=== PATIENT | female | born 1985 | race Caucasian/White ===

== ENCOUNTER 2020-12-23 09:07 | Outpatient (CLI) | payer OTHER, SELFPAY ==
--- NOTE | 2020-12-23 11:15 | NEURO_ITS ---
Impression: # Complains of left 4th and 5th finger numbness. # Left ulnar neuropathy across the elbow. # Normal needle/EMG exam. # Clinical correlation recommended. Nerve Conduction Studies Anti Sensory Summary Table Stim Site NR Peak (ms) P-T Amp (?V) Site1 Site2 Delta-P (ms) Dist (cm) Gregg (m/s) Left Median Anti Sensory (2-3nd Digit) Wrist 2.5 75.6 Wrist 2-3nd Digit 2.5 14.0 56 Wrist 2.4 67.3 Wrist 2-3nd Digit 2.5 14.0 56 Left Radial Anti Sensory (Base 1st Digit) Wrist 1.6 35.1 Wrist Base 1st Digit 1.6 0.0 Left Ulnar Anti Sensory (5th Digit) Wrist 2.3 76.1 Wrist 5th Digit 2.3 14.0 61 Motor Summary Table Stim Site NR Onset (ms) O-P Amp (mV) Site1 Site2 Delta-0 (ms) Dist (cm) Gregg (m/s) Left Median Motor (Abd Poll Brev) Wrist 2.5 4.4 Elbow Wrist 4.6 28.0 61 Elbow 7.1 2.6 Left Ulnar Motor (Abd Dig Minimi) Wrist 2.3 7.8 A Elbow Wrist 6.1 29.0 48 A Elbow 8.4 4.6 B Elbow Wrist 4.1 23.0 56 B Elbow 6.4 6.3 F Wave Studies NR F-Lat (ms) L-R F-Lat (ms) Left Median (Mrkrs) (Abd Poll Brev) 26.62 Left Ulnar (Mrkrs) (Abd Dig Min) 28.58 EMG Side Muscle Nerve Root Ins Act Fibs Amp Dur Recrt Comment Left 1stDorInt Ulnar C8-T1 Nml Nml Nml Nml Nml Left Ext Indicis Radial (Post Int) C7-8 Nml Nml Nml Nml Nml Left Ext Digitorum Radial (Post Int) C7-8 Nml Nml Nml Nml Nml Left BrachioRad Radial C5-6 Nml Nml Nml Nml Nml Left PronatorTeres Median C6-7 Nml Nml Nml Nml Nml Left Abd Poll Brev Median C8-T1 Nml Nml Nml Nml Nml MTDD
== END 2020-12-23 09:08 | disposition home or self-care (01) ==
PROVIDERS: PCP Nurse Practitioner Adult Health; Visit Provider Nurse Practitioner Adult Health
DX: R20.2 Paresthesia of skin (principal); G56.22 Lesion of ulnar nerve, left upper limb
CPT/HCPCS: 95886; 95909

== ENCOUNTER 2023-05-17 06:23 | Inpatient (IN) | payer BC, SELFPAY ==
[2023-05-17] VITALS (51 sets, daily range): BP systolic 80–147; BP diastolic 38–85; PULSE 67–223; RESP 12–14; TEMP 36.4–37.3; O2SAT 97–100; BMI 43.1
--- NOTE | 2023-05-17 06:40 | PM.IMHP ---
H&P: HPI History of Present Illness Date/Time: 05/17/23 06:40 Chief Complaint: demise at 17 weeks Narrative: 38-year-old 2 para 1 at 17 weeks gestation with demise. She had a huge subchorionic hematoma which appeared to be improving but ultrasound yesterday showed demise which appears very recent she is admitted for induction and delivery risks and benefits reviewed Meds Home Medications and Allergies Allergies Allergy/AdvReac Type Severity Reaction Status Date / Time No Known Allergies Allergy Mild Unverified 08/28/08 20:34 Exam Const: General: cooperative, healthy appearing and comfortable Orientation/consciousness: oriented to person, oriented to place and oriented to time HENMT: Head: normal to inspection Resp: Effort & Inspection: normal respiratory effort Cardio: Rate: regular rate Rhythm: regular rhythm Heart sounds: S1 normal heart sound present and S2 normal heart sound present GI: Inspection: normal to inspection : External Female Exam: normal external appearance Speculum Exam - Vagina: normal appearance of the vagina Speculum Exam - Cervix: normal appearance of the cervix Bimanual exam- vagina & uterus: enlarged Bimanual Exam- Adnexa, other: normal adnexae Assessment and Plan Assessment and plan (1) demise before 20 weeks with retention of fetus: Code(s): O02.1 - Missed Status: Acute Plan medical induction of labor
[2023-05-17] MEDS: miSOPROStol 200 MCG TABLET VAGINAL ×3 (07:29→15:32)
[2023-05-17 08:07] LABS: Basophils Percent Auto 0.3 % (0.2-1.2); Eosinophils Absolute Auto 0.1 K/mm3 (0-0.3); Hematocrit 38.2 % (37.0-47.0); Hemoglobin 12.7 g/dL (12.0-15.0); Immature Granulocyte Absolute 0.06 K/mm3 (0.00-0.031); Immature Granulocyte Percent A 0.6 % (0-0.5); Lymphocytes Absolute Auto 2.26 K/mm3 (0.9-3.2); Lymphocytes Percent Auto 22.2 % (18.3-44.2); Mean Corpuscular HGB Conc 33.2 g/dl (32-36); Mean Corpuscular Hemoglobin 29.3 pg (26-34); Mean Platelet Volume 12.6 fl (7.4-10.4); Monocytes Absolute Auto 0.5 K/mm3 (0.1-0.6); Monocytes Percent Auto 4.8 % (2.6-8.5); Neutrophils Absolute Auto 7.3 K/mm3 (1.3-6.7); Neutrophils Percent Auto 71.1 % (45.5-73.1); Platelet Count Result 198 k/mm3 (150-375); Red Blood Count 4.34 M/mm3 (4.2-5.4); Red Cell Distribution Width 13.2 % (11.5-14.5); White Blood Count 10.2 K/mm3 (4.5-10.0)
--- NOTE | 2023-05-17 08:11 | LDADM ---
This patient, Sandra Faith, was admitted to Labor/Delivery/Recovery 110 on 05/17/23 at 06:23. Plans for labor, pain management and were discussed with patient. Patient/family oriented to hospital policies and general routines including ID bracelet, bed and alarms, visiting hours, pain management, procedures, bathroom and other care routines, personal items, smoking policy, room service/diet and guest tray routines, security routines, and visiting hours. Patient/Family are encouraged to report perceived risks to care and to ask questions if they do not understand what they are told or what they should do. See OBIX for further documentation.
[2023-05-17 08:33] LABS: Free T4 Free Thyroxine 0.69 ng/mL (0.78-2.19)
[2023-05-17 09:42] LABS: Rapid Plasma Reagin Non-Reactive (NonReactive)
[2023-05-17 11:18] LABS: Amphetamine Screen Urine Negative (Negative); Barbiturate Screen Urine Negative (Negative); Benzodiazepines Screen Urine Negative (Negative); Cannabinoid Screen Urine Negative (Negative); Cocaine Screen Urine Negative (Negative); Methadone Screen Urine Negative (Negative); Opiate Screen Urine Negative (Negative); Phencyclidine Screen Urine Negative (Negative)
--- NOTE | 2023-05-17 11:43 | PM.OBPNLAB ---
Pain Control Date/time seen: 05/17/23 11:43 Pain control: tolerating well Comments: comfortable second dose in
--- NOTE | 2023-05-17 16:12 | PM.OBPNLAB ---
Pain Control Date/time seen: 05/17/23 16:12 Pain control: tolerating well Pelvic Exam Dilation (cm): 2 Effacement (%): 50 station: -3 Comments: attempted arom. pain increasing
[2023-05-17] MEDS: fentaNYL CITRATE INJ (*CRX) 100 MCG/2 ML VIAL IV PUSH ×2 (16:18→17:18)
[2023-05-17] MEDS: LACTATED RINGERS 1,000 ML 125 ML IV CONT ×2 (17:12→18:22)
--- NOTE | 2023-05-17 18:08 | WPDANESEPPF ---
Anes - Initial Pre Proc Eval Date/Time: 05/17/23 18:08 Surgeon: Pavel Quevedo MD Pre Op Diagnosis: iufd Patient Data Age: 38 Gender: F Height: 1.7 m Weight: 125 kg Last Vital Signs Temp 37.2 C 05/17/23 17:28 Pulse 82 05/17/23 18:07 BP 126/49 L 05/17/23 18:07 Pulse Ox 100 05/17/23 18:06 O2 Del Method Room Air 05/17/23 08:09 Allergies Allergy/AdvReac Type Severity Reaction Status Date / Time No Known Allergies Allergy Mild Unverified 08/28/08 20:34 Laboratory Tests 05/17/23 05/17/23 05/17/23 06:52 06:53 06:54 WBC 10.2 H K/mm3 (4.5-10.0) RBC 4.34 M/mm3 (4.2-5.4) Hgb 12.7 g/dL (12.0-15.0) Hct 38.2 % (37.0-47.0) MCV 88.0 fl (80-100) MCH 29.3 pg (26-34) MCHC 33.2 g/dl (32-36) RDW 13.2 % (11.5-14.5) Plt Count 198 k/mm3 (150-375) MPV 12.6 H fl (7.4-10.4) Immature Gran % (Auto) 0.6 H % (0-0.5) Neut % (Auto) 71.1 % (45.5-73.1) Lymph % (Auto) 22.2 % (18.3-44.2) [place] % (Auto) 4.8 % (2.6-8.5) Eos % (Auto) 1.0 % (0-4.4) Baso % (Auto) 0.3 % (0.2-1.2) Lymph # (Auto) 2.26 K/mm3 (0.9-3.2) [place] # (Auto) 0.5 K/mm3 (0.1-0.6) Eos # (Auto) 0.1 K/mm3 (0-0.3) Baso # (Auto) 0.0 K/mm3 (0.0-0.1) Abs Immat Gran (auto) 0.06 H K/mm3 (0.00-0.031) Absolute Neuts (auto) 7.3 H K/mm3 (1.3-6.7) Absolute Nucleated RBC 0.000 K/mm3 (0.0-0.012) Nucleated RBC % 0.0 % (0.0-0.2) LA PTT Screen Pending dRVVT Screen Pending dRVVT Additional Test Pending Lupus Anticoag Interp Pending Hemoglobin A1c Pending TSH 1.590 uIU/mL (0.465-4.680) Free T4 0.69 L ng/mL (0.78-2.19) Urine Opiates Screen Negative (Negative) Urine Methadone Screen Negative (Negative) Ur Barbiturates Screen Negative (Negative) Ur Phencyclidine Scrn Negative (Negative) Ur Amphetamine Screen Negative (Negative) U Benzodiazepines Scrn Negative (Negative) Urine Cocaine Screen Negative (Negative) U Cannabinoids Screen Negative (Negative) Beta-2-GPI IgG Ab Pending Beta-2-GPI IgA Ab Beta-2-GPI IgM Ab Phosphatidylserine Ab Phosphatidylserine IgG Phosphatidylserine IgA Phosphatidylserine IgM Anti-Cardiolipin IgG Ab Pending Anti-Cardiolipin IgA Ab Pending Anti-Cardiolipin IgM Ab Pending RPR Non-reactive (NonReactive) CMV IgG Ab CMV IgM Ab HSV I Specific Ab Pending HSV II Specific Ab Pending Parvovirus B19 IgG Intp Pending Parvovirus B19 IgM Intp Pending Rubella IgG Antibody Toxoplasma IgG Ab Pending Toxoplasma IgM Ab Add Miscellaneous Test Blood Type A Positive Antibody Screen Negative 05/17/23 05/17/23 05/17/23 06:54 06:54 06:54 WBC RBC Hgb Hct MCV MCH MCHC RDW Plt Count MPV Immature Gran % (Auto) Neut % (Auto) Lymph % (Auto) [place] % (Auto) Eos % (Auto) Baso % (Auto) Lymph # (Auto) [place] # (Auto) Eos # (Auto) Baso # (Auto) Abs Immat Gran (auto) Absolute Neuts (auto) Absolute Nucleated RBC Nucleated RBC % LA PTT Screen dRVVT Screen dRVVT Additional Test Lupus Anticoag Interp Hemoglob
[2023-05-17] MEDS: OXYTOCIN 30 UNITS/NS 500 ML 30 UNITS/500 ML BAG 999 UNITS IV CONT (18:38)
--- NOTE | 2023-05-17 18:57 | P.PCNOB_ITS ---
OB - Vaginal Delivery Note Procedure Delivery date: 05/17/23 Events: Other (Second trimester demise) Induction method: Per Misoprostol Protocol Delivery monitor: None Route of delivery: Episiotomy description: None Laceration Description: None Quantitative Blood Loss (ml): 100 Anesthesia type: Epidural Disposition: Floor Complications: No immediate complications [place] Baby Date of : 05/17/23 Time of : 19:00 Weeks of gestation at delivery: 17 Infant gender: Ambiguous presentation: vertex Placenta delivery description: Spontaneous Cord Vessel Description: Nuchal Cord (x4) score one minute: 0 score five minutes: 0
--- NOTE | 2023-05-17 19:02 | PM.DS ---
DS: Admitting Diagnosis Discharge Date 05/18/2023 Admitting Diagnosis demise DS: Discharge Diagnosis Discharge Diagnosis (1) demise before 20 weeks with retention of fetus: Code(s): O02.1 - Missed Status: Acute DS: Summary Hospital Course Hospital Course: patient was admitted for induction of labor secondary to demise. The procedure was unremarkable on 05/17/2023. Her hospital course was unremarkable. She remained afebrile. She was up, voiding without difficulty, ambulating, generally doing well. She appeared psychologically stable as well Time Spent with Patient Time attestation: Total time spent providing and/or coordinating discharge services: Exam Const: General: cooperative, healthy appearing and comfortable Orientation/consciousness: oriented to person, oriented to place and oriented to time HENMT: Head: normal to inspection Resp: Effort & Inspection: normal respiratory effort Cardio: Rate: regular rate Rhythm: regular rhythm Heart sounds: S1 normal heart sound present and S2 normal heart sound present GI: Inspection: normal to inspection DS: Data Data Completed and Pending Labs on day of discharge: Labs from last 24 hours 05/17/23 05/17/23 05/17/23 08:42 06:54 06:54 WBC RBC Hgb Hct MCV MCH MCHC RDW Plt Count MPV Immature Gran % (Auto) Neut % (Auto) Lymph % (Auto) [place] % (Auto) Eos % (Auto) Baso % (Auto) Lymph # (Auto) [place] # (Auto) Eos # (Auto) Baso # (Auto) Abs Immat Gran (auto) Absolute Neuts (auto) Absolute Nucleated RBC Nucleated RBC % LA PTT Screen dRVVT Screen dRVVT Additional Test Lupus Anticoag Interp Hemoglobin A1c TSH Free T4 Urine Opiates Screen Urine Methadone Screen Ur Barbiturates Screen Ur Phencyclidine Scrn Ur Amphetamine Screen U Benzodiazepines Scrn Urine Cocaine Screen U Cannabinoids Screen Beta-2-GPI IgG Ab Beta-2-GPI IgA Ab Pending Beta-2-GPI IgM Ab Pending Pending Phosphatidylserine Ab Pending Phosphatidylserine IgG Pending Phosphatidylserine IgA Pending Phosphatidylserine IgM Pending Anti-Cardiolipin IgG Ab Pending Anti-Cardiolipin IgA Ab Pending Anti-Cardiolipin IgM Ab Pending RPR CMV IgG Ab Pending CMV IgM Ab Pending HSV I Specific Ab HSV II Specific Ab Parvovirus B19 IgG Intp Parvovirus B19 IgM Intp Rubella IgG Antibody 59.0 Toxoplasma IgG Ab Toxoplasma IgM Ab Pending Add Miscellaneous Test Pending Blood Type Antibody Screen 05/17/23 05/17/23 05/17/23 06:54 06:54 06:53 WBC 10.2 H RBC 4.34 Hgb 12.7 Hct 38.2 MCV 88.0 MCH 29.3 MCHC 33.2 RDW 13.2 Plt Count 198 MPV 12.6 H Immature Gran % (Auto) 0.6 H Neut % (Auto) 71.1 Lymph % (Auto) 22.2 [place] % (Auto) 4.8 Eos % (Auto) 1.0 Baso % (Auto) 0.3 Lymph # (Auto) 2.26 [place] # (Auto) 0.5 Eos # (Auto) 0.1 Baso # (Auto) 0.0 Abs Immat Gran (auto) 0.06 H Absolute Neuts (auto) 7.3 H Absolute Nucleated RBC 0.000 Nucleated RBC % 0.0 LA PTT Screen Pending dRVVT Screen Pending dRVVT Additional Test Pending Lupus Anticoag Interp Pending Hemoglobin A1c Pending TSH 1.590 Free T4 Urine Opiates Screen Urine Methadone Screen Ur Barbiturates Screen Ur Phencyclidine Scrn Ur Amphetamine Screen U Benzodiazepines Scrn Urine Cocaine Screen U Cannabinoids Screen Beta-2-GPI IgG Ab Pending Pending Beta-2-GPI IgA Ab Pending Beta-2-GPI IgM Ab Phosphatidylserine Ab Phosphatidylserine IgG Phosphatidylserine IgA Phosphatidylserine IgM Anti-Cardiolipin IgG Ab Pending Anti-Cardiolipin IgA Ab Pending Anti-Cardiolipin IgM Ab Pending RPR CMV IgG Ab CMV IgM Ab HSV I Specific Ab Pending HSV II Specific Ab Pending Par
[2023-05-17] MEDS: OXYTOCIN 30 UNITS/NS 500 ML 30 UNITS/500 ML BAG 125 UNITS IV CONT (19:18)
--- NOTE | 2023-05-17 19:31 | PC.NURSE ---
Gift Basket Packer was notified of IUFD delivery.
[2023-05-17] MEDS: IBUPROFEN 600 MG TABLET PO (23:30)
--- NOTE | 2023-05-17 23:37 | PC.NURSE ---
Called Dr. Glenys Quevedo to update on pt, vital signs, bleeding, and cramping. Orders received to discharge pt tonight or in the morning per patient preference.
--- NOTE | 2023-05-18 00:26 | PC.NURSE ---
Pt discharged with instructions to schedule an appointment with Dr. Glenys Quevedo next week.
[2023-05-18 01:23] LABS: Hemoglobin A1C 4.9 % (<5.7)
[2023-05-19 18:02] LABS: Toxoplasma IgM Antibody <8.00 AU/mL (<8.00)
[2023-05-20 13:04] LABS: CMV IgM Antibody <30.00 AU/mL (<30.00)
[2023-05-21 12:10] LABS: Anti Cardio Antibody IgM <2.0 MPL-U/mL (<20.0); Anti Cardiolipin Antibody IgA <2.0 APL-U/mL (<20.0); Anti Cardiolipin Antibody IgG <2.0 GPL-U/mL (<20.0); PS/PT AB IgG <9 U (<=30); PS/PT AB IgM 16 U (<=30)
[2023-05-21 12:11] LABS: Anti Cardio Antibody IgM <2.0 MPL-U/mL (<20.0); Anti Cardiolipin Antibody IgA <2.0 APL-U/mL (<20.0); Anti Cardiolipin Antibody IgG <2.0 GPL-U/mL (<20.0)
[2023-05-22 09:18] LABS: CMV IgG Antibody >10.00 U/mL (<0.60)
[2023-05-22 13:27] LABS: Toxoplasma IgG Antibody <7.20 IU/mL (<7.20)
[2023-05-23 20:02] LABS: Lupus dRVVT Screen 42 sec (<=45); PTT-LA Screen 32 sec (<=40)
== END 2023-05-18 00:26 | disposition home or self-care (01) | DRG 564 ==
PROVIDERS: Admitting Provider Obstetrics & Gynecology; PCP Nurse Practitioner Adult Health; Visit Provider Obstetrics & Gynecology
DX: O02.1 Missed abortion (principal); Z3A.17 17 weeks gestation of pregnancy
CPT/HCPCS: 36415; 80307; 83036; 84439; 84443; 85025; 85613; 85730; 86146; 86147; 86592; 86644; 86645; 86695; 86696; 86747; 86762; 86777; 86850; 86900; 86901; 88307; A9270; J2590; J2795; J3010; J7120

== ENCOUNTER 2023-09-27 01:30 | Emergency (ER) | payer BC, SELFPAY ==
[2023-09-27 01:35] VITALS: BP 155/100; PULSE 78; RESP 15; TEMP 36.4; O2SAT 100
[2023-09-27 02:00] LABS: Basophils Absolute Auto 0.1 K/mm3 (0.0-0.1); Basophils Percent Auto 0.5 % (0.2-1.2); Eosinophils Absolute Auto 0.2 K/mm3 (0-0.3); Eosinophils Percent Auto 1.4 % (0-4.4); Hematocrit 39.4 % (37.0-47.0); Hemoglobin 13.2 g/dL (12.0-15.0); Immature Granulocyte Absolute 0.02 K/mm3 (0.00-0.031); Immature Granulocyte Percent A 0.2 % (0-0.5); Lymphocytes Absolute Auto 3.34 K/mm3 (0.9-3.2); Lymphocytes Percent Auto 29.8 % (18.3-44.2); Mean Corpuscular HGB Conc 33.5 g/dl (32-36); Mean Corpuscular Hemoglobin 28.6 pg (26-34); Mean Corpuscular Volume 85.5 fl (80-100); Mean Platelet Volume 11.6 fl (7.4-10.4); Monocytes Absolute Auto 0.7 K/mm3 (0.1-0.6); Monocytes Percent Auto 6.2 % (2.6-8.5); Neutrophils Absolute Auto 6.9 K/mm3 (1.3-6.7); Neutrophils Percent Auto 61.9 % (45.5-73.1); Platelet Count Result 240 k/mm3 (150-375); Red Blood Count 4.61 M/mm3 (4.2-5.4); Red Cell Distribution Width 13.3 % (11.5-14.5); White Blood Count 11.2 K/mm3 (4.5-10.0)
[2023-09-27 02:10] LABS: INR 0.9; Prothrombin Time 12.6 Seconds (11.1-14.7)
[2023-09-27 02:11] LABS: Partial Thromboplastin Time 26.1 Seconds (22.3-36.8)
[2023-09-27 02:15] LABS: Alanine Aminotransferase 18 U/L (6-35); Alkaline Phosphatase 80 U/L (38-126); Anion Gap 12 mmol/L (4-12); Aspartate Amino Transferase 15 U/L (14-36); Bilirubin,Total 0.1 mg/dL (0.2-1.3); Blood Urea Nitrogen 13 mg/dL (7-17); Carbon Dioxide 18 mmol/L (22-30); Chloride 105 mmol/L (98-107); Estimated CRCL calculation 147 ml/min; Estimated Glomerular Filt Rate > 60; Glucose 117 mg/dL (65-110); Potassium 4.1 mmol/L (3.4-5.0); Sodium 135 mmol/L (137-145)
--- NOTE | 2023-09-27 03:10 | ED.PREGNANCY ---
HPI - General Chief complaint: Vaginal Bleeding Stated complaint: vaginal bleeding, 7 weeks Time Seen by Provider: 09/27/23 02:31 History of Present Illness [facility] Narrative: This is a 38-year-old female at several weeks to gestation. Patient presents to the emergency department for vaginal bleeding. She is concerned she is having a miscarriage. 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 Patient had a regular scheduled ultrasound with her OBGYN this morning which showed a live IUP with good heart rate and stated date of 7 weeks 2 days. There was a small subchorionic hemorrhage that was noted and patient is aware of. After the transvaginal ultrasound patient noted a small cramping sensation and went home and knows that she was passing large clots. Patient had 3-4 large clot passed and culture OBGYN who said that she is likely okay but also referred her to the ER she was concerned. Patient had some mild abdominal cramping prior to the onset of the bleeding but presently has no abdominal pain, nauseous, vomiting, diarrhea, constipation. No fever, chills. She does not require RhoGAM given her blood type. History of miscarriages and hemorrhage during . Related Data Allergies Allergy/AdvReac Type Severity Reaction Status Date / Time No Known Allergies Allergy Mild Unverified 08/28/08 20:34 Review of Systems Review of Systems: As reviewed above in the [facility] Social History Social History Smoking status: Never smoker Substance use: never Do You Feel Safe in your Home?: Yes Lack of Transportation: No Lack of Food: Never True Current Housing: I Do Not Have Housing Concerned About Future Housing: No Difficulty Paying Gas/Electric Bills: No Difficulty Paying for Meds: No Currently Unemployed: No Education: Master's Degree or Higher Difficulty w/ Childcare or Family Care: No Spiritual care concerns: No Exam Narrative: GENERAL: [Well-appearing, well-nourished, and in no acute distress.] HEAD: [Normocephalic, atraumatic.] EYES: [PERRLA and EOMI.] ENT: Nares clear, no rhinorrhea or epistaxis. Mucous membranes moist. NECK: Supple. CHEST: [Clear to auscultation. No respiratory distress.] HEART: [Regular rate and rhythm]. No murmur heard. [Normal peripheral pulses.] ABDOMEN: [Soft, nondistended], [nontender], [No rigidity or guarding] GENITOURINARY: Some pooling of dark blood in the vaginal vault, cervical os was closed, no active bleeding noted. No purulence or drainage or active signs of infection. No material noted. EXTREMITIES: Normal range of motion. [No edema.] SKIN: Warm, dry, no rash. NEURO: [No focal deficits]. Alert and oriented [x3.] PSYCH: [Normal mood and affect.] Course Vital Signs Vital signs: Vital Signs Temperature 36.4 C 09/27/23 01:35 Pulse Rate 78 09/27/23 01:35 Respiratory Rate 15 09/27/23 01:35 Blood Pressure 155/100 H 09/27/23 01:35 Pulse Oximetry 100 09/27/23 01:35 Oxygen Delivery Room Air 09/27/23 01:35 Temperature 36.4 C 09/27/23 01:35 Pulse Rate 78 09/27/23 01:35 Respiratory Rate 15 09/27/23 01:35 Blood Pressure 155/100 H 09/27/23 01:35 Pulse Oximetry 100 09/27/23 01:35 Oxygen Delivery Room Air 09/27/23 01:35 MDM - OB/Uterine Contractions MDM Narrative Medical decision making narrative: This is a 38-year-old female at 7 weeks 2 days gestation by ultrasonography. Patient has a confirmed IUP on outpatient ultrasound that was conducted earlier this morning. She states she started developing blood clot passage after the ultrasound itself. Endorses a mild abdominal cramping sensation as presently resolved. No other somatic symptoms. Has normal reassuring vital signs and is not tachycardic or hypotensive. She is afebrile. Patient is closely followed by her fertility
[2023-09-27 03:50] VITALS: BP 142/87; PULSE 74; RESP 17; O2SAT 99
== END 2023-09-27 03:51 | disposition home or self-care (01) ==
PROVIDERS: Physician Assistant; Emergency Provider Student in an Organized Health Care Education/Training Program
DX: O20.0 Threatened abortion (principal); Z3A.00 Weeks of gestation of pregnancy not specified
CPT/HCPCS: 36415; 80053; 84702; 85025; 85461; 85610; 85730; 86850; 86900; 86901; 99284

== ENCOUNTER 2024-03-06 08:02 | Outpatient (RCR) | payer BC, SELFPAY ==
[2024-03-06 08:30] VITALS: BMI 44.5
[2024-03-06 09:15] VITALS: BMI 44.5
== END 2024-05-20 10:22 | disposition home or self-care (01) ==
LOC: ANHDMC 08:02
PROVIDERS: Visit Provider Obstetrics & Gynecology
DX: Z86.32 Personal history of gestational diabetes (principal); Z71.3 Dietary counseling and surveillance
CPT/HCPCS: 97802

== ENCOUNTER 2024-07-15 14:24 | Outpatient (CLI) | payer BC, SELFPAY ==
[2024-07-15 14:46] VITALS: BP 113/70; PULSE 74
--- OUTSIDE RECORDS SUMMARY | 2024-07-15 14:46 | XMS_ITS | Encounter Summary ---
Author Organization [facility] Address [address] [place] [address] Care Team Providers Care Belt Loop Maker Name Role Phone Unavailable Primary Care Provider Unavailabl e Encounter Details Date Type Department Care Team (Late st Contact Info) Description 09/27/2023 Lab Requisition [facility] [address] [place] [address] Nan More MD Missed Social History Tobacco Use Types Packs/Day Years Used Date Smoking Tobacco: Never Assessed Comments Unknown Sex and Gender Information Value Date Recorded Sex Assigned at Not on file Legal Sex Female 1:49 PM CDT Gender Identity Not on file Sexual Orientation Not on file documented as of this encounter Plan of Treatment Not on file documented as of this encounter Procedures Procedure Name Priority Date/Time Associated Diagnosis Comments CBC W AUTO DIFFERENTIAL STAT 09/27/2023 10:42 AM CDT Missed (HCC) documented in this encounter Results * (ABNORMAL) CBC WITH DIFFERENTIAL (09/27/2023 10:42 AM CDT) WBC 10.2 4.0 - 10.7 x10E9/L 09/27/2023 12:22 PM CDT [facility] RBC Count 4.56 3.90 - 5.20 x10E12/L 09/27/2023 12:22 PM CDT [facility] Hemoglobin 12.9 11.9 - 15.8 g/dL 09/27/2023 12:22 PM CDT [facility] Hematocrit 39.7 34.8 - 46.1 % 09/27/2023 12:22 PM CDT [facility] MCV 87.1 80.0 - 98.0 fL 09/[facility]23 12[facility] MCH 28.3 26.7 - 33.6 pg 09/27/2023 12:22 [facility] MCHC 32.5 31.7 - 36.3 g/dL 09/27/2023 12:22 PM [facility] RDW-CV 13.3 11.3 - 14.8 % 09/27/2023 12:22 PM [facility] Platelet Count 230 150 - 420 x10E9/L 09/27/2023 12:22 PM [facility] MPV 11.9(H) 7.8 - 11.4 fL 09/27/2023 12:22 PM [facility] Neutrophil % 63.6 41.0 - 74.0 % 09/27/2023 12:22 PM [facility] Lymphocyte % 28.5 17.0 - 47.0 % 09/27/2023 12:22 PM [facility] Monocyte % 5.7 3.0 - 11.0 % 09/27/2023 12:22 PM [facility] Eosinophil % 1.4 0.0 - 7.0 % 09/27/2023 12:22 PM [facility] Basophil % 0.4 0.0 - 1.6 % 09/27/2023 12:22 PM [facility] Immature Granulocytes % 0.4 0.0 - 1.0 % 09/27/2023 12:22 PM [facility] Neutrophil Absolute 6.46 1.60 - 7.50 x10E9/L 09/27/2023 12:22 PM [facility] Lymphocyte Absolute 2.90 1.00 - 4.40 x10E9/L 09/27/2023 12:22 PM [facility] Monocyte Absolute 0.58 0.15 - 1.00 x10E9/L 09/27/2023 12:22 PM [facility] Eosinophil Absolute 0.14 0.00 - 0.60 x10E9/L 09/27/2023 12:22 PM [facility] Basophil Absolute 0.04 0.00 - 0.13 x10E9/L 09/27/2023 12:22 PM [facility] Blood BLOOD SPECIMEN / Unknown 09/27/2023 10:42 AM CDT 09/27/2023 12:16 PM CDT us Nan More MD LAB - HEMATOLOGY ORDERABLES Gayla min Result Performing Organization Address City/State/[facility] Co de Phone Number [facility] [address] [place], [place] [id number] documented in this encounter Visit Diagnoses Diagnosis Missed (HCC) Missed documented in this encounter
--- OUTSIDE RECORDS SUMMARY | 2024-07-15 14:46 | XMS_ITS | Encounter Summary ---
Author Organization [facility] Address [address] [place] [address] Care Team Providers Care Web Feeder Name Role Phone Unavailable Primary Care Provider Unavailabl e Encounter Details Date Type Department Care Team (Late st Contact Info) Description 09/28/2023 Lab Requisition [facility] [address] [place] [address] Nan More MD Missed Social History Tobacco [...] Diagnosis Comments CBC W AUTO DIFFERENTIAL STAT 09/28/2023 8:07 AM CDT Missed (HCC) documented in this encounter Results * (ABNORMAL) CBC WITH DIFFERENTIAL (09/28/2023 8:07 AM CDT) WBC 10.1 4.0 - 10.7 x10E9/L 09/28/2023 10:28 AM CDT [facility] RBC Count 4.41 3.90 - 5.20 x10E12/L 09/28/2023 10:28 AM CDT [facility] Hemoglobin 12.4 11.9 - 15.8 g/dL 09/28/2023 10:28 AM CDT [facility] Hematocrit 38.6 34.8 - 46.1 % 09/28/2023 10:28 AM CDT [facility] MCV 87.5 80.0 - 98.0 fL 09/28/2023 10:28 AM CDT [facility] MCH 28.1 26.7 - 33.6 pg 09/28/2023 10:28 AM CDT [facility] MCHC 32.1 31.7 - 36.3 g/dL 09/28/2023 10:28 AM [facility] RDW-CV 13.3 11.3 - 14.8 % 09/28/2023 10:28 AM [facility] Platelet Count 224 150 - 420 x10E9/L 09/28/2023 10:28 AM [facility] MPV 12.3(H) 7.8 - 11.4 fL 09/28/2023 10:28 AM [facility] Neutrophil % 54.2 41.0 - 74.0 % 09/28/2023 10:28 AM [facility] Lymphocyte % 37.2 17.0 - 47.0 % 09/28/2023 10:28 AM [facility] Monocyte % 6.0 3.0 - 11.0 % 09/28/2023 10:28 AM [facility] Eosinophil % 1.5 0.0 - 7.0 % 09/28/2023 10:28 AM [facility] Basophil % 0.6 0.0 - 1.6 % 09/28/2023 10:28 AM [facility] Immature Granulocytes % 0.5 0.0 - 1.0 % 09/28/2023 10:28 AM [facility] Neutrophil Absolute 5.47 1.60 - 7.50 x10E9/L 09/28/2023 10:28 AM [facility] Lymphocyte Absolute 3.75 1.00 - 4.40 x10E9/L 09/28/2023 10:28 AM [facility] Monocyte Absolute 0.60 0.15 - 1.00 x10E9/L 09/28/2023 10:28 AM [facility] Eosinophil Absolute 0.15 0.00 - 0.60 x10E9/L 09/28/2023 10:28 AM [facility] Basophil Absolute 0.06 0.00 - 0.13 x10E9/L 09/28/2023 10:28 AM [facility] Blood BLOOD SPECIMEN / Unknown 09/28/2023 8:07 AM CDT 09/28/2023 10:16 AM CDT us Nan More MD LAB - HEMATOLOGY ORDERABLES Gayla min Result [facility] [address] [place] [address] documented in this encounter Visit Diagnoses Diagnosis Missed (HCC) Missed documented in this encounter
--- OUTSIDE RECORDS SUMMARY | 2024-07-15 14:46 | XMS_ITS | Clinical Summary ---
Author Organization [employer] [facility] Address [address] Attn: Epic Prelude ADT RUDY CHAVIRA [id number] Care Team Providers Care Trade Sales Assistant Name Role Phone Unavailable Primary Care Provider Unavailabl e Medications pravastatin (PRAVACHOL) 20 mg tablet TAKE ONE TABLET BY MOUTH AT BEDTIME 90 Tablet 3 08/12/2021 5:33 PM CDT 2 Active semaglutide, weight loss, (Wegovy) 1.7 mg/0.75 mL Pen Injector Inject 1.7 mg subcutaneously once weekly. 3 mL 2 Active semaglutide (Ozempic) 0.25 mg or 0.5 mg(2 mg/1.5 mL) Pen Injector Inject 0.25 mg subcutaneously once weekly for 4 weeks, then increase to 0.5 mg once weekly. 7.5 mL 3 2 Active nirmatrelvir-r itonavir (Paxlovid, EUA,) 300(150mg x 2)-100 mg oral pack use as directed twice a day x 5 days. 1 Each 2 Active pravastatin (PRAVACHOL) 40 mg tablet Take 1 Tablet (40 mg) by mouth daily. 90 Tablet 1 2 Active rosuvastatin (Crestor) 20 mg tablet Take 1 Tablet (20 mg) by mouth daily at bedtime. 90 Tablet 2 Active Social History Tobacco Use Types Packs/Day Years Used Date Smoking Tobacco: Never Assessed Comments Unknown Sex and Gender Information Value Date Recorded Sex Assigned at Not on file Legal Sex Female 3:27 PM CDT Gender Identity Not on file Sexual Orientation Not on file Plan of Treatment Health Maintenance Due Date Last Done Comments DTAP/TDAP/TD VACCINES (1 - Tdap) 2005 HEPATITIS B VACCINES (1 of 3 - 19+ 3-dose series) 2005 HPV/Cotest (21-29) 05/06/2007 CERVICAL CANCER SCREENING 2016 HPV/Cotest (30-65) 2016 PAP SMEAR 2016 INFLUENZA VACCINE (#1) 2023 HPV VACCINES Aged Out No longer eligi ble based on patient's age to complete this topic
--- OUTSIDE RECORDS SUMMARY | 2024-07-15 14:46 | XMS_ITS | Clinical Summary ---
Author Organization [facility] Address [address] [place] [address] Care Team Providers Care Spaghetti Press Helper Name Role Phone Unavailable Primary Care Provider Unavailabl e Source Comments [facility],non-owned Affiliates and Associated Physician Practices is amultiple site organization consisting of ambulatory clinics and hospital sitesin [place], [place], [place] and [place]. This disclosure is being madepursuant to the Care Everywhere program and may not contain all information available regarding this patient. Last updated 17.[facility] Encounters Date Type Department Care Team Description 05/30/2024 9:09 AM CDT - 05/30/2024 11:59 PM CDT Hospital Encounter [address] [address] Pavel Cheek MD Peterson, Renuka E., MD Discharge Disposition: Home or Self Care 05/30/2024 9:08 AM CDT Hospital Encounter [address] [address] Maria C Sheridan MD Discharge Disposition: Home or Self Care 05/14/[address] [address] Malina Langston Future Appointment 05/09/2024 Orders Only [address] [address] Yohana Juárez RN Prior with congenital cardiac defect, antepartum, unspecified trimester from Last 3 Months Social History Tobacco Use Types Packs/Day Years Used Date Smoking Tobacco: Never Assessed Comments Unknown Sex and Gender Information Value Date Recorded Sex Assigned at Not on file Legal Sex Female 1:49 PM CDT Gender Identity Not on file Sexual Orientation Not on file Plan of Treatment Health Maintenance Due Date Last Done Comments PAP SMEAR 1985 HIV SCREENING 2001 HEPATITIS C SCREENING 04/30/2004 DTAP/TDAP/TD VACCINES (1 - Tdap) 2005 HEPATITIS B VACCINE (1 of 3 - 19+ 3-dose series) 2005 DEPRESSION SCREENING 02/14/2024 ZOSTER VACCINE (1 of 2) 2036 COVID-19 VACCINE Completed 12/22/2023, 02/21/2023, 01/20/2021 INFLUENZA VACCINE Completed 12/22/2023, 02/21/2023, 11/17/2021 HIB VACCINE Aged Out No longer eligi ble based on patient's age to complete this topic HPV VACCINE Aged Out No longer eligi ble based on patient's age to complete this topic MENINGOCOCCAL (Group B) VACCINE SHARED DECISION-MAKING Aged Out No longer eligible based on patient's age to complete this topic MENINGOCOCCAL GROUPS A/C/Y/W VACCINE Aged Out No longer eligible b ased on patient's age to complete this topic PNEUMOCOCCAL VACCINE Aged Out No long er eligible based on patient's age to complete this topic Procedures Procedure Name Priority Date/Time Associated Diagnosis Comments ECHO COMPLETE CG Routine 05/30/2024 9:54 AM CDT Prior with congenital cardiac defect, antepartum, unspecified trimester (HCC) from Last 3 Months Results * ECHO COMPLETE CG (05/30/2024 9:54 AM CDT) MV E pk ronda 33.54 cm/s [facility] CV F UJI PACS MV A pk ronda 53.82 cm/s [facility] CV F UJI PACS Anatomical Region Laterality Modality Ultrasound 05/30/2024 9:26 AM CDT Narrative 05/30/2024 3:52 PM CDT Name: Carri Wheeler Patient Exam Info Gender: Female Patient Status: O/P : 1985 Admit Date: 05/30/2024 Exam Date/Time: 05/30/2024 9:26 AM Site: [facility] Current Location: CARE EStudy Quality: Diagnostic quality Staff Ordering Provider: Pavel Cheek Interpreting Physician: Maria C Sheridan MD Patrol Driver: Toyin Frazier [facility] Study Info Procedure: ECHO COMPLETE CG Indications: O09.299 - Prior with congenital cardiac defect, antepartum, unspecified trimester (HCC) Maternal Gestational Status GA by EDC: 28 wks , 1 days EDC: 08/21/2024 Type: Stewart Age: 39 yrs Lie: Vertex Summary * The echocardiogram was within normal limits. * Small atrial and ventricular septal defects and persistent ductus arteriosus cannot be excluded as findings. Anatomic Relationships Left sided cardiac apex (levocardia). There is normal visceral-cardiac situs, and normal segmental cardiac anatomical relationship. Systemic Veins There is normal systemic venous return. Pulmonary Veins The visualized pulmonary veins drain normally to the left atrium. Right Atrium The right atrial size is normal. Left Atrium The left atrial size is normal. Atrial Septum Patent foramen ovale with open foramen flap. Color flow is right to left. Right Ventricle The right ventricular cavity size is normal. The right ventricular wall thickness is normal. The right ventricular systolic function is normal. RV Outflow Tract The right ventricular outflow tract is normal. Left Ventricle The left ventricular cavity size is normal. The left ventricular wall thickness is normal. The left ventricular systolic function is normal. Ventricular Septum There is no ventricular septal defect with no shunting. LV Outflow Tract The left ventricular outflow tract is normal. Tricuspid Valve The tricuspid valve is structurally normal. The tricuspid inflow pattern is normal. Tricuspid velocity is within the normal range. There is no tricuspid regurgitation. Mitral Valve The mitral valve is structurally normal. The mitral inflow pattern is normal. Mitral velocity is within the normal range. There is no mitral regurgitation. Aorta aortic arch visualized and is without obstruction by 2D, color flow and Doppler. Pulmonary Arteries The main pulmonary artery is normal, with confluent branch pulmonary arteries. Ductus Arteriosus The antegrade flow velocity and pattern in the ductal arch is normal. A normal ductus arteriosus is appreciated. Doppler Flow in the ductus venosus is normal. The umbilical vein flow pattern is normal. The umbilical artery flow pattern is normal. Hydrops Assessment No pericardial effusion. No ascites present. No pleural effusion(s). Rhythm The rhythm is normal. There is 1:1 AV conduction. Pulmonary Valve The pulmonic valve is normal-sized. The transpulmonic velocity is within normal range. There is no pulmonic regurgitation. Aortic Valve The aortic valve is normal-sized. The transaortic velocity is within normal range. There is no aortic regurgitation. Doppler Measurements (Fetus A) Atrioventricular Valves Name Value Normal Z-Score Percentile Atrioventricular Valves Doppler TV E Peak Velocity 0.4 m/s TV A Peak Velocity 0.6 m/s MV E Peak Velocity 0.3 m/s MV A Peak Velocity 0.5 m/s (Fetus A) Semilunar Valves Name Value Normal Z-Score Percentile Semilunar Valves Doppler PV Peak Velocity. 0.7 m/s AV Peak Velocity () 0.9 m/s (Fetus A) Heart Rate Name Value Normal Z-Score Percentile Heart Rate Heart Rate (Doppler) 152 bpm Report Signatures Finalized by Maria C Sheridan MD on 05/30/2024 03:52 PM Procedure Note Maria C Sheridan MD - 05/30/2024 Name: Carri Wheeler Patient Exam Info Gender: Female Patient Status: O/P : 1985 Admit Date: 05/30/2024 Exam Date/Time: 05/30/2024 9:26 AM Site: [facility] Current Location: CARE EStudy Quality: Diagnostic quality Staff Ordering Provider: Pavel Cheek Interpreting Physician: Maria C Sheridan MD Patrol Driver: Toyin Frazier [facility] Study Info Procedure: ECHO COMPLETE CG Indications: O09.299 - Prior with congenital cardiac defect,antepartum, unspecified trimester (HCC) Maternal Gestational Status GA by EDC: 28 wks , 1 days EDC: 08/21/2024 Type: Stewart Age: 39 yrs Lie: Vertex Summary * The echocardiogram was within normal limits. * Small atrial and ventricular septal defects and persistent ductus arteriosus cannot be excluded as findings. Anatomic Relationships Left sided cardiac apex (levocardia). There is normal visceral-cardiac situs, and normal segmental cardiac anatomical relationship. Systemic Veins There is normal systemic venous return. Pulmonary Veins The visualized pulmonary veins drain normally to the left atrium. Right Atrium The right atrial size is normal. Left Atrium The left atrial size is normal. Atrial Septum Patent foramen ovale with open foramen flap. Color flow is right toleft. Right Ventricle The right ventricular cavity size is normal. The right ventricularwall thickness is normal. The right ventricular systolic function is normal. RV Outflow Tract The right ventricular outflow tract is normal. Left Ventricle The left ventricular cavity size is normal. The left ventricular wall thickness is normal. The left ventricular systolic function is normal. Ventricular Septum There is no ventricular septal defect with no shunting. LV Outflow Tract The left ventricular outflow tract is normal. Tricuspid Valve The tricuspid valve is structurally normal. The tricuspid inflow patternis normal. Tricuspid velocity is within the normal range. There is notricuspid regurgitation. Mitral Valve The mitral valve is structurally normal. The mitral inflow pattern is normal. Mitral velocity is within the normal range. There is no mitral regurgitation. Aorta aortic arch visualized and is without obstruction by 2D, colorflow and Doppler. Pulmonary Arteries The main pulmonary artery is normal, with confluent branch pulmonary arteries. Ductus Arteriosus The antegrade flow velocity and pattern in the ductal arch is normal.A normal ductus arteriosus is appreciated. Doppler Flow in the ductus venosus is normal. The umbilical vein flow patternis normal. The umbilical artery flow pattern is normal. Hydrops Assessment No pericardial effusion. No ascites present. No pleural effusion(s). Rhythm The rhythm is normal. There is 1:1 AV conduction. Pulmonary Valve The pulmonic valve is normal-sized. The transpulmonic velocity iswithin normal range. There is no pulmonic regurgitation. Aortic Valve The aortic valve is normal-sized. The transaortic velocity is withinnormal range. There is no aortic regurgitation. Doppler Measurements (Fetus A) Atrioventricular Valves Name Value Normal Z-ScorePercentile Atrioventricular Valves Doppler TV E Peak Velocity 0.4 m/s TV A Peak Velocity 0.6 m/s MV E Peak Velocity 0.3 m/s MV A Peak Velocity 0.5 m/s (Fetus A) Semilunar Valves Name Value Normal Z-ScorePercentile Semilunar Valves Doppler PV Peak Velocity. 0.7 m/s AV Peak Velocity () 0.9 m/s (Fetus A) Heart Rate Name Value Normal Z-ScorePercentile Heart Rate Heart Rate (Doppler) 152 bpm Report Signatures Finalized by Maria C Sheridan MD on 05/30/2024 03:52 PM Pavel Cheek MD ECHO [facility]UPID Final Resul t from Last 3 Months Insurance [facility] * Guarantor: CARRI WHEELER Account Type Relation to Patient Date of Phone Billing Address Personal/Family [address] [place] [address] * Guarantor: CARRI WHEELER Account Type Relation to Patient Date of Phone Billing Address Personal/Family [address] [place] [address] * Guarantor: CARRI WHEELER Account Type Relation to Patient Date of Phone Billing Address Personal/Family [address] [place] [address]
--- OUTSIDE RECORDS SUMMARY | 2024-07-15 14:46 | XMS_ITS | Data Portability ---
Author Organization [facility], Main Office Address [address] [place] [address] Assessment No assessment recorded. Plan of Treatment Reminders Order Date Submit Date Provider Last Modified By Organization Details Last Modified Time Details Appointments None recorded. Lab vitamin B12, serum [address] Outpatient Lab, [address] [place], [address], 09:15:16 HbA1c (hemoglobin A1c), blood [address] Outpatient Lab, [address] [place], [address], 4 09:15:15 lipid panel, serum [address] Outpatient Lab, [address] [place], [address], 4 09:15:15 CMP, serum or plasma [address] Outpatient Lab, [address] [place], [address], 4 09:15:15 vitamin D, 25-hydroxy, total, serum [address] Outpatient Lab, [address] [place], [address], 4 09:15:16 CBC w/ auto diff 2023 024 [facility] - Outpatient Lab, [address] [place], [address], 4 09:15:16 TSH, serum, reflex free T4 2023 024 [facility] Outpatient Lab, [address] [place], [address], 4 12:32:52 PPD (purified protein derivative) , skin test 2022 023 [facility] [address], [place], [address], 3 12:52:17 Referral None recorded. Procedures None recorded. Surgeries None recorded. Imaging None recorded. Medication Orders Tubersol 5 tub. unit/0.1 mL intradermal injection solution 2022 023 Not available 4 08:30:27 Patient TargetsNo targets recorded. Patient InstructionsNo instructions recorded. Reason for Referral None Reported. Results Created Date Observation Date Name Description Value Unit Range Abnormal Flag Note LastModifiedBy Organization Detail LastModifiedTime 10/23/1910/26/2020 TESTO STERO NE, FREE (DIAL YSIS) AND TOTAL ,MS testosterone , total, MS 29 NG/dL 2-45 For addit ional infor tapan gill e refer to https ://ed ucati on.qu shea [employer]. com/f aq/FA Q165 (This link is being provi ded for infor mateduardo nal/e ducat ional purpo ses only. ) (Note ) This test was devel oped and its therese tical perfo rmanc e fortunato cteri stics have been deter mined by [employer]. It has not been clear ed or appro kvng by the FDA. This assay has been valid ated pursu ant to the CLIA regul ation s and is used for clini madeline purpo ses. Not Available [facility] [address], [place], [address], 10/26/2020 12:46:07 10/23/1910/26/2020 TESTO STERO NE, FREE (DIAL YSIS) AND TOTAL ,MS testosterone , free 4.3 pg/mL 0.1-6. 4 (Note ) This test was devel oped and its therese tical perfo rmanc e fortunato cteri stics have been deter mined by [employer]. It has not been clear ed or appro kvng by the FDA. This assay has been valid ated pursu ant to the CLIA regul ation s and is used for clini madeline purpo ses. MD[facility] med fusio n [address] [facility] [address] [place] [address] [phone] Ned coronel MD Not Available [facility] [address] [place], [address], 10/26/2020 12:46:07 10/23/1910/26/2020 HEMOG LOBIN A1C hemoglobin A1C 5.2 %_of_ total _HGB <5.7 normal Not Available [facility] [address] [place], [address], 10/26/2020 12:46:06 10/23/1910/26/2020 VITAM IN D,25- OH,TO KHAI,I A vitamin D,25-oh,tota l,ia 35 NG/mL 30-100 normal Vitam in D Statu s 25-OH Vitam in D: Defic iency : <20 ng/mL Insuf ficie ncy: 20 - 29 ng/mL Optim al: > or = 30 ng/mL For 25-OH Vitam in D testi ng on patie nts on D2-downs pplem entat ion and patie nts for whom quant itati on of D2 and D3 fract ions is requi red, the [facility] Assur eD(TM ) 25-OH VIT D, (D2,D 3), LC/MS /MS is recom chelsey d: order code 05638 (katia ents >2yrs ). See Note 1 Note 1 For addit ional infor matio n, pleas e refer to http: //[facility] [employer].c om/fa q/FAQ 199 (This link is being provi ded for infor janes mackay/ tami albrechto ses only. ) Not Available [facility] [place] [address] [place], [address], 10/26/2020 12:46:05 10/23/1910/26/2020 T3, FREE T3, free 3.5 pg/mL 2.3-4. 2 normal Not Available [facility] [address] [address] [place], [address], 10/26/2020 12:46:05 10/23/1910/26/2020 VITAM IN B12/F OLATE , SERUM PANEL vitamin B12 382 pg/mL 200-11 00 normal Pleas e Note: Altho ugh the refer ence range for vitam in B12 is 200-1 100 pg/mL , it has been repor maryanne that betwe en 5 and 10% of patie nts with value s betwe en 200 and 400 pg/mL may exper ience neuro psych iatri c and hemat ologi c abnor malit ies due to occul t B12 defic iency ; less than 1% of patie nts with value s above 400 pg/mL will have sympt oms. Not Available [facility] [place] [address] [address] [place], [address], 10/26/2020 12:46:04 10/23/1910/26/2020 VITAM IN B12/F OLATE , SERUM PANEL folate, serum >24.0 NG/mL normal Refer ence Range Low: <3.4 Borde rline : 3.4-5 .4 Kristen l: >5.4 Not Available [facility] [address] [address] [place], [address], 10/26/2020 12:46:04 10/23/1910/26/2020 TSH TSH 3.35 mIU/L normal Refer ence Range > or = 20 Years 0.40- 4.50 Pregn myron Range s First trime ster 0.26- 2.66 Secon d trime ster 0.55- 2.73 Third trime ster 0.43- 2.91 Not Available [facility] [place] [address] [place], [address], 10/26/2020 12:46:03 10/23/19 21 10/26/2020 T4, FREE T4, free 1.0 NG/dL 0.8-1. 8 normal Not Available [facility] [address], [address], 10/26/2020 12:46:02 10/23/1910/26/2020 T3, TOTAL T3, total 139 NG/dL 76-181 normal Not Available [address], [address], 10/26/2020 12:46:01 10/23/1910/26/2020 PROGE STERO NE progesterone 0.5 NG/mL normal Refer ence Range s Femal e Folli cular Phase < 1.0 Lutea l Phase 2.6-2 1.5 Post menop ausal < 0.5 Pregn myron 1st Trime ster 4.1-3 4.0 2nd Trime ster 24.0- 76.0 3rd Trime ster 52.0- 302.0 Not Available [address], [address], 10/26/2020 12:46:00 10/23/1910/26/2020 INSUL IN insulin 4.0 uIU/m L normal Refer ence Range < or = 19.6 Risk: Optim al < or = 19.6 Moder ate NA High >19.6 Adult cardi ovasc ular event risk categ ory cut point s (opti mal, moder ate, high) are based on [facility] popul ation data from 02/01 11. This insul in assay shows stron g cross -reac tivit y for some insul in analo gs (lisp ro, aspar t, and glarg ine) and much lower cross -reac tivit y with other s (dete christine, gluli sine) . Not Available [address], [address], 10/26/2020 12:45:59 10/23/1910/26/2020 CORNELL TIN ferritin 102 NG/mL 16-154 normal Not Available [address], [address], 10/26/2020 12:45:59 10/23/1910/26/2020 DHEA SULFA TE DHEA sulfate 235 mcg/d L 23-266 normal Not Available [address], [address], 10/26/2020 12:45:58 10/23/1910/26/2020 THYRO ID PEROX IDASE ANTIB ODIES thyroid peroxidase antibodies 1 IU/mL <9 normal Not Available [facility] [address], [address], 10/26/2020 12:45:57 10/23/1910/26/2020 CBC (INCL UDES DIFF/ PLT) red blood cell count 4.64 júnior on/uL 3.80-5 .10 normal Not Available [address], [address], 10/26/2020 12:45:56 10/23/1910/26/2020 CBC (INCL UDES DIFF/ PLT) hemoglobin 13.5 g/dL 11.7-1 5.5 normal Not Available [facility] [address], [address], 10/26/2020 12:45:56 10/23/1910/26/2020 CBC (INCL UDES DIFF/ PLT) hematocrit 40.4 % 35.0-4 5.0 normal Not Available [facility] [address], [address], 10/26/2020 12:45:56 10/23/1910/26/2020 CBC (INCL UDES DIFF/ PLT) MCV 87.1 fL 80.0-1 00.0 normal Not Available [address], [address], 10/26/2020 12:45:56 10/23/1910/26/2020 CBC (INCL UDES DIFF/ PLT) MCH 29.1 pg 27.0-3 3.0 normal Not Available [address], [address], 10/26/2020 12:45:56 10/23/1910/26/2020 CBC (INCL UDES DIFF/ PLT) MCHC 33.4 g/dL 32.0-3 6.0 normal Not Available [address], [address], 10/26/2020 12:45:56 10/23/1910/26/2020 CBC (INCL UDES DIFF/ PLT) RDW 12.6 % 11.0-1 5.0 normal Not Available [address], [address], 10/26/2020 12:45:56 10/23/1910/26/2020 CBC (INCL UDES DIFF/ PLT) platelet count 208 thous and/u L 140-40 0 normal Not Available [address], [address], 10/26/2020 12:45:56 10/23/1910/26/2020 CBC (INCL UDES DIFF/ PLT) MPV 11.8 fL 7.5-12 .5 normal Not Available [address], [address], 10/26/2020 12:45:56 10/23/1910/26/2020 CBC (INCL UDES DIFF/ PLT) absolute neutrophils 4609 cells /uL 1500-7 800 normal Not Available [address], [address], 10/26/2020 12:45:56 10/23/1910/26/2020 CBC (INCL UDES DIFF/ PLT) absolute lymphocytes 2762 cells /uL 850-39 00 normal Not Available [address], [address], 10/26/2020 12:45:56 10/23/1910/26/2020 CBC (INCL UDES DIFF/ PLT) absolute monocytes 551 cells /uL 200-95 0 normal Not Available [address], [address], 10/26/2020 12:45:56 10/23/1910/26/2020 CBC (INCL UDES DIFF/ PLT) absolute eosinophils 122 cells /uL 15-500 normal Not Available [address], [address], 10/26/2020 12:45:56 10/23/1910/26/2020 CBC (INCL UDES DIFF/ PLT) absolute basophils 57 cells /uL 0-200 normal Not Available [address], [address], 10/26/2020 12:45:56 10/23/1910/26/2020 CBC (INCL UDES DIFF/ PLT) neutrophils 56.9 % normal Not Available [address], [address], 10/26/2020 12:45:56 10/23/1910/26/2020 CBC (INCL UDES DIFF/ PLT) lymphocytes 34.1 % normal Not Available [address], [address], 10/26/2020 12:45:56 10/23/1910/26/2020 CBC (INCL UDES DIFF/ PLT) monocytes 6.8 % normal Not Available [address], [address], 10/26/2020 12:45:56 10/23/1910/26/2020 CBC (INCL UDES DIFF/ PLT) eosinophils 1.5 % normal Not Available [address], [address], 10/26/2020 12:45:56 10/23/1910/26/2020 CBC (INCL UDES DIFF/ PLT) basophils 0.7 % normal Not Available [address], [address], 10/26/2020 12:45:56 10/23/1910/26/2020 CBC (INCL UDES DIFF/ PLT) white blood cell count 8.1 thous and/u L 3.8-10 .8 normal Not Available [address], [address], 10/26/2020 12:45:56 10/23/1910/26/2020 COMPR EHENS MACKENZIE METAB OLIC PANEL glucose 99 mg/dL 65-99 normal Fasti ng refer ence inter broderick Not Available [address], [address], 10/26/2020 12:45:55 10/23/1910/26/2020 COMPR EHENS MACKENZIE METAB OLIC PANEL urea nitrogen (BUN) 12 mg/dL 7-25 normal Not Available [address], [address], 10/26/2020 12:45:55 10/23/1910/26/2020 COMPR EHENS MACKENZIE METAB OLIC PANEL creatinine 0.76 mg/dL 0.50-1 .10 normal Not Available [address], [address], 10/26/2020 12:45:55 10/23/19 21 10/26/2020 COMPR EHENS MACKENZIE METAB OLIC PANEL eGFR non-afr. kosovan 102 mL/mi n/1.7 3m2 > or = 60 normal Not Available [address], [address], 10/26/2020 12:45:55 10/23/19 21 10/26/2020 COMPR EHENS MACKENZIE METAB OLIC PANEL eGFR 119 mL/mi n/1.7 3m2 > or = 60 normal Not Available [address], [address], 10/26/2020 12:45:55 10/23/19 21 10/26/2020 COMPR EHENS MACKENZIE METAB OLIC PANEL BUN/creatini ne ratio not applic able (calc ) 6-22 Not Available [address], [address], 10/26/2020 12:45:55 10/23/19 21 10/26/2020 COMPR EHENS MACKENZIE METAB OLIC PANEL sodium 135 mmol/ L 135-14 6 normal Not Available [address], [address], 10/26/2020 12:45:55 10/23/1910/26/2020 COMPR EHENS MACKENZIE METAB OLIC PANEL potassium 4.2 mmol/ L 3.5-5. 3 normal Not Available [address], [address], 10/26/2020 12:45:55 10/23/1910/26/2020 COMPR EHENS MACKENZIE METAB OLIC PANEL chloride 103 mmol/ L 98-110 normal Not Available [address], [address], 10/26/2020 12:45:55 10/23/1910/26/2020 COMPR EHENS MACKENZIE METAB OLIC PANEL carbon dioxide 26 mmol/ L 20-32 normal Not Available [address], [address], 10/26/2020 12:45:55 10/23/19 21 10/26/2020 COMPR EHENS MACKENZIE METAB OLIC PANEL calcium 9.0 mg/dL 8.6-10 .2 normal Not Available [address], [address], 10/26/2020 12:45:55 10/23/1910/26/2020 COMPR EHENS MACKENZIE METAB OLIC PANEL protein, total 6.9 g/dL 6.1-8. 1 normal Not Available [address], [address], 10/26/2020 12:45:55 10/23/1910/26/2020 COMPR EHENS MACKENZIE METAB OLIC PANEL albumin 4.1 g/dL 3.6-5. 1 normal Not Available [address], [address], 10/26/2020 12:45:55 10/23/1910/26/2020 COMPR EHENS MACKENZIE METAB OLIC PANEL globulin 2.8 g/dL_ (calc ) 1.9-3. 7 normal Not Available [address], [address], 10/26/2020 12:45:55 10/23/1910/26/2020 COMPR EHENS MACKENZIE METAB OLIC PANEL albumin/glob ulin ratio 1.5 (calc ) 1.0-2. 5 normal Not Available [address], [address], 10/26/2020 12:45:55 10/23/19 21 10/26/2020 COMPR EHENS MACKENZIE METAB OLIC PANEL bilirubin, total 0.4 mg/dL 0.2-1. 2 normal Not Available [address], [address], 10/26/2020 12:45:55 10/23/1910/26/2020 COMPR EHENS MACKENZIE METAB OLIC PANEL alkaline phosphatase 76 U/L 31-125 normal Not Available [address], [address], 10/26/2020 12:45:55 10/23/1910/26/2020 COMPR EHENS MACKENZIE METAB OLIC PANEL AST 17 U/L 10-30 normal Not Available [address], [address], 10/26/2020 12:45:55 10/23/1910/26/2020 COMPR EHENS MACKENZIE METAB OLIC PANEL ALT 14 U/L 6-29 normal Not Available [address], [address], 10/26/2020 12:45:55 10/23/1910/26/2020 IRON AND TOTAL IRON FAZAL NG CAPAC ITY iron, total 69 mcg/d L 40-190 normal Not Available [address], [address], 10/26/2020 12:45:55 10/23/1910/26/2020 IRON AND TOTAL IRON FAZAL NG CAPAC ITY iron binding capacity 320 mcg/d L_(ca lc) 250-45 0 normal Not Available [address], [address], 10/26/2020 12:45:55 10/23/1910/26/2020 IRON AND TOTAL IRON FAZAL NG CAPAC ITY % saturation 22 %_(ca lc) 16-45 normal Not Available [address], [address], 10/26/2020 12:45:55 10/23/1910/26/2020 MAGNE SIUM magnesium 2.0 mg/dL 1.5-2. 5 normal Not Available [place] [address] [place], [address], 10/26/2020 12:45:53 10/23/1910/26/2020 LIPID PANEL , STAND MALIA cholesterol, total 238 mg/dL <200 high Not Available [facility] [address] [place], [address], 10/26/2020 12:45:52 10/23/1910/26/2020 LIPID PANEL , STAND MALIA HDL cholesterol 32 mg/dL > or = 50 low Not Available [facility] [address], [address], 10/26/2020 12:45:52 10/23/1910/26/2020 LIPID PANEL , STAND MALIA triglyceride s 249 mg/dL <150 high If a non-f astin g speci men was colle cted, consi viktor repea t trigl yceri de testi ng on a fasti ng speci men if clini tair indic ated. Raphael keating et al. J. of Clin. Lipid ol. 2015; 9:129 -169. Not Available [address], [address], 10/26/2020 12:45:52 10/23/1910/26/2020 LIPID PANEL , STAND MALIA LDL-choleste rol 165 mg/dL _(madeline c) high Refer ence range : <100 Jcainta able range <100 mg/dL for prima ry preve ntion ; <70 mg/dL for patie nts with CHD or diabe tic patie nts with > or = 2 CHD risk facto rs. LDL-C is now calcu lated using the Deb n-Hop kins calcu latio n, which is a valid ated novel metho d provi ding trudy r accur acy than the Fried dominic equat ion in the estim ation of LDL-C . Deb wall SS et al. LETTY. 2013; 310(1 9): 2061- 2067 (http ://ed ucati on.Brigette riveraTeam [employer]. com/f aq/FA Q164) Not Available [address], [address], 10/26/2020 12:45:52 10/23/19 21 10/26/2020 LIPID PANEL , STAND MALIA chol/HDLC ratio 7.4 (calc ) <5.0 high Not Available [place] [address] [place], [address], 10/26/2020 12:45:52 10/23/1910/26/2020 LIPID PANEL , STAND MALIA non HDL cholesterol 206 mg/dL _(madeline c) <130 high For patie nts with diabe faith plus 1 major ASCVD risk facto r, treat ing to a non-H DL-C goal of <100 mg/dL (LDL- C of <70 mg/dL ) is consi dered a zay mejia c optio n. Not Available [place] [address] [place], [address], 10/26/2020 12:45:52 12/12/1912/12/2020 HEPAT IC FUNCT ION PANEL protein, total 6.7 g/dL 6.1-8. 1 normal Not Available [address], [address], 12/12/2020 06:27:51 12/12/1912/12/2020 HEPAT IC FUNCT ION PANEL albumin 4.3 g/dL 3.6-5. 1 normal Not Available [facility] [address], [address], 12/12/2020 06:27:51 12/12/1912/12/2020 HEPAT IC FUNCT ION PANEL globulin 2.4 g/dL_ (calc ) 1.9-3. 7 normal Not Available [address], [address], 12/12/2020 06:27:51 12/12/19 21 12/12/2020 HEPAT IC FUNCT ION PANEL albumin/glob ulin ratio 1.8 (calc ) 1.0-2. 5 normal Not Available [address], [address], 12/12/2020 06:27:51 12/12/1912/12/2020 HEPAT IC FUNCT ION PANEL bilirubin, total 0.4 mg/dL 0.2-1. 2 normal Not Available [address], [address], 12/12/2020 06:27:51 12/12/19 21 12/12/2020 HEPAT IC FUNCT ION PANEL bilirubin, direct 0.1 mg/dL < or = 0.2 normal Not Available [address], [address], 12/12/2020 06:27:51 12/12/19 21 12/12/2020 HEPAT IC FUNCT ION PANEL bilirubin, indirect 0.3 mg/dL _(madeline c) 0.2-1. 2 normal Not Available [address], [address], 12/12/2020 06:27:51 12/12/19 21 12/12/2020 HEPAT IC FUNCT ION PANEL alkaline phosphatase 95 U/L 31-125 normal Not Available [place] [address] [place], [address], 12/12/2020 06:27:51 12/12/19 21 12/12/2020 HEPAT IC FUNCT ION PANEL AST 13 U/L 10-30 normal Not Available [address], [address], 12/12/2020 06:27:51 12/12/19 21 12/12/2020 HEPAT IC FUNCT ION PANEL ALT 14 U/L 6-29 normal Not Available [facility] [address] [place], [address], 12/12/2020 06:27:51 12/12/1912/12/2020 LIPID PANEL , STAND MALIA cholesterol, total 180 mg/dL <200 normal Not Available [facility] [address] [place], [address], 12/12/2020 06:27:50 12/12/1912/12/2020 LIPID PANEL , STAND MALIA HDL cholesterol 31 mg/dL > or = 50 low Not Available [facility] [place] [address] [place], [address], 12/12/2020 06:27:50 12/12/1912/12/2020 LIPID PANEL , STAND MALIA triglyceride s 186 mg/dL <150 high Not Available [facility] [place] [address] [place], [address], 12/12/2020 06:27:50 12/12/1912/12/2020 LIPID PANEL , STAND MALIA LDL-choleste rol 119 mg/dL _(madeline c) high Refer ence range : <100 Jacinta able range <100 mg/dL for prima ry preve ntion ; <70 mg/dL for patie nts with CHD or diabe tic patie nts with > or = 2 CHD risk facto rs. LDL-C is now calcu lated using the Deb n-Hop kins izabellau darshan n, which is a valid ated novel metho d evangelinai prakash carvalho accur acy than the Fried dominic equat ion in the estim ation of LDL-C . Deb wall SS et al. LETTY. 2013; 310(1 9): 2061- 2068 (http ://ed ucati on.Qu Shea white t[employer]. com/f aq/FA Q164) Not Available [facility] [address] [place], [address], 12/12/2020 06:27:50 12/12/1912/12/2020 LIPID PANEL , STAND MALIA chol/HDLC ratio 5.8 (calc ) <5.0 high Not Available [facility] [address], [address], 12/12/2020 06:27:50 12/12/19 21 12/12/2020 LIPID PANEL , STAND MALIA non HDL cholesterol 149 mg/dL _(madeline c) <130 high For patie nts with diabe faith plus 1 major ASCVD risk facto r, treat ing to a non-H DL-C goal of <100 mg/dL (LDL- C of <70 mg/dL ) is xenia gutierrez optio n. Not Available [facility] [place] [address] [place], [address], 12/12/2020 06:27:50 11/18/19 22 11/21/2021 VITAM IN B12/F OLATE , SERUM PANEL vitamin B12 556 pg/mL 200-11 00 normal Not Available [facility] [place] [address] [place], [address], 11/21/2021 18:19:39 11/18/1911/21/2021 VITAM IN B12/F OLATE , SERUM PANEL folate, serum 16.5 NG/mL normal Refer ence Range Low: <3.4 Borde rline : 3.4-5 .4 Kristen l: >5.4 Not Available [facility] [address], [address], 11/21/2021 18:19:39 11/18/19 22 11/21/2021 INSUL IN insulin 2.7 uIU/m L normal Refer ence Range < or = 19.6 Risk: Optim al < or = 19.6 Moder ate NA High >19.6 Adult cardi ovasc ular event risk categ ory cut point s (opti mal, moder ate, high) are based on [facility] popul ation data from 02/01 11. This insul in assay shows booker contreras cross -refreda tivit y for some insul in analo gs (lisp ro, aspar t, and glarg ine) and much lower cross -reac tivit y with other s (dete christine, gluli sine) . Not Available [address], [address], 11/21/2021 18:19:38 11/18/19 22 11/21/2021 HEPAT IC FUNCT ION PANEL protein, total 6.8 g/dL 6.1-8. 1 normal Not Available [address], [address], 11/21/2021 18:19:37 11/18/19 22 11/21/2021 HEPAT IC FUNCT ION PANEL albumin 4.0 g/dL 3.6-5. 1 normal Not Available [address], [address], 11/21/2021 18:19:37 11/18/19 22 11/21/2021 HEPAT IC FUNCT ION PANEL globulin 2.8 g/dL_ (calc ) 1.9-3. 7 normal Not Available [address], [address], 11/21/2021 18:19:37 11/18/19 22 11/21/2021 HEPAT IC FUNCT ION PANEL albumin/glob ulin ratio 1.4 (calc ) 1.0-2. 5 normal Not Available [address], [address], 11/21/2021 18:19:37 11/18/19 22 11/21/2021 HEPAT IC FUNCT ION PANEL bilirubin, total 0.5 mg/dL 0.2-1. 2 normal Not Available [address], [address], 11/21/2021 18:19:37 11/18/19 22 11/21/2021 HEPAT IC FUNCT ION PANEL bilirubin, direct 0.1 mg/dL < or = 0.2 normal Not Available [address], [address], 11/21/2021 18:19:37 11/18/19 22 11/21/2021 HEPAT IC FUNCT ION PANEL bilirubin, indirect 0.4 mg/dL _(madeline c) 0.2-1. 2 normal Not Available [address], [address], 11/21/2021 18:19:37 11/18/19 22 11/21/2021 HEPAT IC FUNCT ION PANEL alkaline phosphatase 77 U/L 31-125 normal Not Available [address], [address], 11/21/2021 18:19:37 11/18/19 22 11/21/2021 HEPAT IC FUNCT ION PANEL AST 15 U/L 10-30 normal Not Available [address], [address], 11/21/2021 18:19:37 11/18/19 22 11/21/2021 HEPAT IC FUNCT ION PANEL ALT 15 U/L 6-29 normal Not Available [address], [address], 11/21/2021 18:19:37 11/18/19 22 11/21/2021 BASIC METAB OLIC PANEL glucose 81 mg/dL 65-99 normal Fasti ng refer ence inter broderick Not Available [address], [address], 11/21/2021 18:19:37 11/18/19 22 11/21/2021 BASIC METAB OLIC PANEL urea nitrogen (BUN) 10 mg/dL 7-25 normal Not Available [address], [address], 11/21/2021 18:19:37 11/18/19 22 11/21/2021 BASIC METAB OLIC PANEL creatinine 0.75 mg/dL 0.50-0 .97 normal Not Available [address], [address], 11/21/2021 18:19:37 11/18/19 22 11/21/2021 BASIC METAB OLIC PANEL eGFR 106 mL/mi n/1.7 3m2 > or = 60 normal The eGFR is based on the CKD-E PI 2020 equat ion. To calcu late the new eGFR from a previ ous Creat inine or Cysta tin C resul t, go to https ://jyoti w.margy gonzalez.o leidy/jazmyn zarate s/ kdoqi /gfr% 5Fcal culat or Not Available [place] [address] [place], [address], 11/21/2021 18:19:37 11/18/1911/21/2021 BASIC METAB OLIC PANEL BUN/creatini ne ratio not applic able (calc ) 6-22 Not Available [place] [address] [place], [address], 11/21/2021 18:19:37 11/18/19 22 11/21/2021 BASIC METAB OLIC PANEL sodium 137 mmol/ L 135-14 6 normal Not Available [address], [address], 11/21/2021 18:19:37 11/18/19 22 11/21/2021 BASIC METAB OLIC PANEL potassium 4.5 mmol/ L 3.5-5. 3 normal Not Available [address], [address], 11/21/2021 18:19:37 11/18/19 22 11/21/2021 BASIC METAB OLIC PANEL chloride 104 mmol/ L 98-110 normal Not Available [address], [address], 11/21/2021 18:19:37 11/18/19 11/21/2021 BASIC METAB OLIC PANEL carbon dioxide 28 mmol/ L 20-32 normal Not Available [address], [address], 11/21/2021 18:19:37 11/18/19 22 11/21/2021 BASIC METAB OLIC PANEL calcium 8.9 mg/dL 8.6-10 .2 normal Not Available [address], [address], 11/21/2021 18:19:37 11/18/19 22 11/21/2021 CARDI O IQ(R) LIPID PANEL cholesterol, total 181 mg/dL <200 Not Available [address], [address], 11/21/2021 18:19:36 11/18/19 22 11/21/2021 CARDI O IQ(R) LIPID PANEL HDL cholesterol 34 mg/dL >49 low Not Available [address], [address], 11/21/2021 18:19:36 11/18/19 22 11/21/2021 CARDI O IQ(R) LIPID PANEL triglyceride s 178 mg/dL <150 high Not Available [address], [address], 11/21/2021 18:19:36 11/18/19 22 11/21/2021 CARDI O IQ(R) LIPID PANEL LDL-choleste rol 117 mg/dL _(madeline c) <100 high Jacinta able range <100 mg/dL for prima ry preve ntion ; <70 mg/dL for patie nts with CHD or diabe tic patie nts with >= 2 CHD risk facto rs. LDL-C is now calcu lated using the Deb n-Hop kins calcu darshan n, which is a valid ated novel metho zeina yates r accur acy than the Fried dominic equat ion in the estim ation of LDL-C . Deb GALLAGHER et al. LETTY. 2013; 310(1 9): 2060- 2067 (http ://ed ucati on.[employer]. com/f aq/FA Q164) LDL-C is now calcu lated using the Deb n-Hop kins calcu darshan n, which is a valid ated novel metho d provi ding trudy r accur acy than the Fried dominic equat ion in the estim ation of LDL-C . Deb GALLAGHER et al. LETTY. 2013; 310(1 9): 2060- 2067 (http ://ed ati on.Qu [employer]. com/f aq/FA Q164) Not Available Inf[facility] [address], [address], 11/21/2021 18:19:36 11/18/19 22 11/21/2021 CARDI O IQ(R) LIPID PANEL chol/HDLC ratio 5.3 calc <3.6 high Not Available [facility] [address], [address], 11/21/2021 18:19:36 11/18/19 22 11/21/2021 CARDI O IQ(R) LIPID PANEL non HDL cholesterol 147 mg/dL _(madeline c) <130 high For patie nts with diabe faith plus 1 major ASCVD risk facto r, treat ing to a non-H DL-C goal of <100 mg/dL (LDL- C of <70 mg/dL ) is consi dered a thera peuti c optio n. For patie nts with diabe faith plus 1 major ASCVD risk facto r, treat ing to a non-H DL-C goal of <100 mg/dL (LDL- C of <70 mg/dL ) is consi dered a thera peuti c optio n. Not Available Infogram [facility] [address] [place], [address], 11/21/2021 18:19:36 11/23/19 22 11/23/2021 GLUCO SE KASSIDY ANCE TEST, 3 SPECI MENS, (75G) fasting specimen 70 mg/dL 65-99 normal Not Available [address], [address], 11/23/2021 09:36:05 11/23/19 22 11/23/2021 GLUCO SE KASSIDY ANCE TEST, 3 SPECI MENS, (75G) 1 hour specimen 139 mg/dL normal Not Available [address], [address], 11/23/2021 09:36:05 11/23/19 22 11/23/2021 GLUCO SE KASSIDY ANCE TEST, 3 SPECI MENS, (75G) 2 hour specimen 83 mg/dL <140 normal Not Available [address], [address], 11/23/2021 09:36:05 11/23/19 22 11/23/2021 GLUCO SE KASSIDY ANCE TEST, 3 SPECI MENS, (75G) comment Ameri can Diabe faith Ass[facility] iatio n Diagn ostic Crite sury for Diabe faith Melli tus Gluco se Value (mg/d L) Inter preta tion Fasti ng 1 Hr 2 Hr Kassidy ance Kassidy ance ----- ----- ---- ----- ---- ----- ---- ----- ---- Kristen l <1 00 Not Estab lishe d <140 Impai red Fasti ng 100-1 25 Impai red Kassidy ance 140-1 99 Diabe faith >OR=1 26* >OR=2 00* * Must be confi rmed by testi ng on a subse quent day. Not Available [address], [address], 11/23/2021 09:36:05 12/24/19 22 12/24/2021 LIPID PANEL , STAND MALIA cholesterol, total 182 mg/dL <200 normal Not Available [address], [address], 12/24/2021 02:10:18 12/24/19 22 12/24/2021 LIPID PANEL , STAND MALIA HDL cholesterol 34 mg/dL > or = 50 low Not Available [facility] [address] [place], [address], 12/24/2021 02:10:18 12/24/19 22 12/24/2021 LIPID PANEL , STAND MALIA triglyceride s 276 mg/dL <150 high If a non-f astin g speci men was colle cted, consi viktor repea t trigl yceri de testi ng on a fasti ng speci men if clini tari indic ated. Raphael keating et al. J. of Clin. Lipid ol. 2015; 9:129 -169. Not Available [facility] [address] [address] [place], [address], 12/24/2021 02:10:18 12/24/19 22 12/24/2021 LIPID PANEL , STAND MALIA LDL-choleste rol 109 mg/dL _(madeline c) high Refer ence range : <100 Jacinta able range <100 mg/dL for prima ry preve ntion ; <70 mg/dL for patie nts with CHD or diabe tic patie nts with > or = 2 CHD risk facto rs. LDL-C is now calcu lated using the Deb n-Hop kins calcu darshan n, which is a valid ated novel jeano d edilberto yates r accur acy than the Fried dominic equat ion in the estim ation of LDL-C . Deb wall SS et al. LETTY. 2013; 310(1 9): 2061- 2068 (http ://ed ucati on.Qu estDi [employer]. com/f aq/FA Q164) Not Available [facility] [address] [place], [address], 12/24/2021 02:10:18 12/24/19 22 12/24/2021 LIPID PANEL , STAND MALIA chol/HDLC ratio 5.4 (calc ) <5.0 high Not Available [facility] [address] [address] [place], [address], 12/24/2021 02:10:18 12/24/19 22 12/24/2021 LIPID PANEL , STAND MALIA non HDL cholesterol 148 mg/dL _(madeline c) <130 high For patie nts with diabe faith plus 1 major ASCVD risk facto r, treat ing to a non-H DL-C goal of <100 mg/dL (LDL- C of <70 mg/dL ) is consi lakeishad a thera jackie c optio n. Not Available [facility] [address] [address] [place], [address], 12/24/2021 02:10:18 02/15/19 23 02/16/2022 VITAM IN B12/F OLATE , SERUM PANEL vitamin B12 718 pg/mL 200-11 00 normal Not Available [facility] [address] [address] [place], [address], 02/16/2022 03:50:31 02/15/19 23 02/16/2022 VITAM IN B12/F OLATE , SERUM PANEL folate, serum 16.4 NG/mL normal Refer ence Range Low: <3.4 Borde rline : 3.4-5 .4 Kristen l: >5.4 Not Available [facility] [address] [address] [place], [address], 02/16/2022 03:50:31 02/15/19 23 02/16/2022 LIPID PANEL , STAND MALIA cholesterol, total 116 mg/dL <200 normal Not Available [facility] [address] [address] [place], [address], 02/16/2022 03:50:30 02/15/19 23 02/16/2022 LIPID PANEL , STAND MALIA HDL cholesterol 32 mg/dL > or = 50 low Not Available [facility] [address] [address] [place], [address], 02/16/2022 03:50:30 02/15/19 23 02/16/2022 LIPID PANEL , STAND MALIA triglyceride s 147 mg/dL <150 normal Not Available [address], [address], 02/16/2022 03:50:30 02/15/19 23 02/16/2022 LIPID PANEL , STAND MALIA LDL-choleste rol 61 mg/dL _(madeline c) normal Refer ence range : <100 Jacinta able range <100 mg/dL for prima ry preve ntion ; <70 mg/dL for patie nts with CHD or diabe tic patie nts with > or = 2 CHD risk facto rs. LDL-C is now calcu lated using the Deb n-Hop kins calcu darshan n, which is a valid ated novel metho d provi ding trudy r accur acy than the Fried dominic equat ion in the estim ation of LDL-C . Deb wall SS et al. LETTY. 2013; 310(1 9): 2061- 2068 (http ://ed ucati on.Qu [employer]. OnePIN/f aq/FA Q164) Not Available [facility] [address] [address] [place], [address], 02/16/2022 03:50:30 02/15/19 23 02/16/2022 LIPID PANEL , STAND MALIA chol/HDLC ratio 3.6 (calc ) <5.0 normal Not Available [facility] [address] [address] [place], [address], 02/16/2022 03:50:30 02/15/19 23 02/16/2022 LIPID PANEL , STAND MALIA non HDL cholesterol 84 mg/dL _(madeline c) <130 normal For patie nts with diabe faith plus 1 major ASCVD risk facto r, treat ing to a non-H DL-C goal of <100 mg/dL (LDL- C of <70 mg/dL ) is consi dered a thera peuti c optio n. Not Available [facility] [address] [place], [address], 02/16/2022 03:50:30 05/05/1905/05/2022 LIPID PANEL , STAND MALIA cholesterol, total 128 mg/dL <200 normal Not Available [address], [address], 2022 02:58:47 05/05/1905/05/2022 LIPID PANEL , STAND MALIA HDL cholesterol 34 mg/dL > or = 50 low Not Available [address], [address], 2022 02:58:47 05/05/1905/05/2022 LIPID PANEL , STAND MALIA triglyceride s 232 mg/dL <150 high If a non-f astin g speci men was colle cted, consi viktor repea t trigl yceri de testi ng on a fasti ng speci men if clini tari indic ated. Raphael keating et al. J. of Clin. Lipid ol. 2015; 9:129 -169. Not Available [address], [address], 2022 02:58:47 05/05/1905/05/2022 LIPID PANEL , STAND MALIA LDL-choleste rol 65 mg/dL _(madeline c) normal Refer ence range : <100 Jacinta able range <100 mg/dL for prima ry preve ntion ; <70 mg/dL for patie nts with CHD or diabe tic patie nts with > or = 2 CHD risk facto rs. LDL-C is now calcu lated using the Deb n-Hop kins calcu darshan n, which is a valid ated novel diamond colmenares than the Fried dominic equat ion in the estim ation of LDL-C . Deb wall SS et al. LETTY. 2013; 310(1 9): 2061- 2068 (http ://ed ucati on.Qu estDi [employer]. com/f aq/FA Q164) Not Available [address] [place], [address], 2022 02:58:47 05/05/1905/05/2022 LIPID PANEL , STAND MALIA chol/HDLC ratio 3.8 (calc ) <5.0 normal Not Available [facility] [address] [address] [place], [address], 2022 02:58:47 05/05/19 23 2022 LIPID PANEL , STAND MALIA non HDL cholesterol 94 mg/dL _(madeline c) <130 normal For patie nts with diabe faith plus 1 major ASCVD risk facto r, treat ing to a non-H DL-C goal of <100 mg/dL (LDL- C of <70 mg/dL ) is consi james collazo peutmike c optio n. Not Available [address] [address] [place], [address], 2022 02:58:47 08/04/19 23 08/03/2022 PPD (amy fied prote in deriv ative ), skin test TB Not Available [address], [place], [address], 08/01/2022 08:37:25 08/04/19 23 08/03/2022 PPD (amy fied prote in deriv ative ), skin test TB negati ve Not Available [address], [place], [address], 08/01/2022 08:37:25 01/20/20 23 01/25/2023 LIPID PANEL , STAND MALIA cholesterol, total 256 mg/dL <200 high Not Available [facility] [address] [address] [place], [address], 01/25/2023 21:45:07 01/20/20 23 01/25/2023 LIPID PANEL , STAND MALIA HDL cholesterol 43 mg/dL > or = 50 low Not Available [facility] [address] [place], [address], 01/25/2023 21:45:07 01/20/20 23 01/25/2023 LIPID PANEL , STAND MALIA triglyceride s 142 mg/dL <150 normal Not Available [facility] [address] [place], [address], 01/25/2023 21:45:07 01/20/20 23 01/25/2023 LIPID PANEL , STAND MALIA LDL-choleste rol 185 mg/dL _(madeline c) high Refer ence range : <100 Jacinta able range <100 mg/dL for prima ry preve ntion ; <70 mg/dL for patie nts with CHD or diabe tic patie nts with > or = 2 CHD risk facto rs. LDL-C is now calcu lated using the Deb n-Hop kins izabellau darshan n, which is a valid ated novel diamond hendrixte r accur acy than the Fried dominic equat ion in the estim ation of LDL-C . Deb wall SS et al. LETTY. 2013; 310(1 9): 2061- 2068 (http ://ed ucati on.stickapps [employer]. OnePIN/f aq/FA Q164) Not Available [facility] [address] [address], [place], [address], 01/25/2023 21:45:07 01/20/20 23 01/25/2023 LIPID PANEL , STAND MALIA chol/HDLC ratio 6.0 (calc ) <5.0 high Not Available [facility] [address] [place], [address], 01/25/2023 21:45:07 01/20/20 23 01/25/2023 LIPID PANEL , STAND MALIA non HDL cholesterol 213 mg/dL _(madeline c) <130 high For patie nts with diabe faith plus 1 major ASCVD risk facto r, treat ing to a non-H DL-C goal of <100 mg/dL (LDL- C of <70 mg/dL ) is jamii james gutierrez optio n. Not Available [address] [address] [place], [address], 01/25/2023 21:45:07 01/20/20 23 01/25/2023 COMPR EHENS MACKENZIE METAB OLIC PANEL glucose 95 mg/dL 65-99 normal Fasti ng refer ence inter broderick Not Available [address], [address], 01/25/2023 21:45:09 01/20/20 23 01/25/2023 COMPR EHENS MACKENZIE METAB OLIC PANEL urea nitrogen (BUN) 14 mg/dL 7-25 normal Not Available [address], [address], 01/25/2023 21:45:09 01/20/20 23 01/25/2023 COMPR EHENS MACKENZIE METAB OLIC PANEL creatinine 0.68 mg/dL 0.50-0 .97 normal Not Available [address], [address], 01/25/2023 21:45:09 01/20/20 23 01/25/2023 COMPR EHENS MACKENZIE METAB OLIC PANEL eGFR 116 mL/mi n/1.7 3m2 > or = 60 normal Not Available [address], [address], 01/25/2023 21:45:09 01/20/20 23 01/25/2023 COMPR EHENS MACKENZIE METAB OLIC PANEL BUN/creatini ne ratio SEE NOTE: (calc ) 6-22 Not Repor maryanne: BUN and Creat inine are withi n refer ence range . Not Available [address] [place], [address], 01/25/2023 21:45:09 01/20/20 23 01/25/2023 COMPR EHENS MACKENZIE METAB OLIC PANEL sodium 138 mmol/ L 135-14 6 normal Not Available [address], [address], 01/25/2023 21:45:09 01/20/20 23 01/25/2023 COMPR EHENS MACKENZIE METAB OLIC PANEL potassium 4.5 mmol/ L 3.5-5. 3 normal Not Available [address], [address], 01/25/2023 21:45:09 01/20/20 23 01/25/2023 COMPR EHENS MACKENZIE METAB OLIC PANEL chloride 107 mmol/ L 98-110 normal Not Available [address], [address], 01/25/2023 21:45:09 01/20/20 23 01/25/2023 COMPR EHENS MACKENZIE METAB OLIC PANEL carbon dioxide 22 mmol/ L 20-32 normal Not Available [address], [address], 01/25/2023 21:45:09 01/20/20 23 01/25/2023 COMPR EHENS MACKENZIE METAB OLIC PANEL calcium 8.8 mg/dL 8.6-10 .2 normal Not Available [address], [address], 01/25/2023 21:45:09 01/20/20 23 01/25/2023 COMPR EHENS MACKENZIE METAB OLIC PANEL protein, total 6.9 g/dL 6.1-8. 1 normal Not Available [address], [address], 01/25/2023 21:45:09 01/20/20 23 01/25/2023 COMPR EHENS MACKENZIE METAB OLIC PANEL albumin 4.0 g/dL 3.6-5. 1 normal Not Available [address], [address], 01/25/2023 21:45:09 01/20/20 23 01/25/2023 COMPR EHENS MACKENZIE METAB OLIC PANEL globulin 2.9 g/dL_ (calc ) 1.9-3. 7 normal Not Available [address], [address], 01/25/2023 21:45:09 01/20/20 23 01/25/2023 COMPR EHENS MACKENZIE METAB OLIC PANEL albumin/glob ulin ratio 1.4 (calc ) 1.0-2. 5 normal Not Available [address], [address], 01/25/2023 21:45:09 01/20/20 23 01/25/2023 COMPR EHENS MACKENZIE METAB OLIC PANEL bilirubin, total 0.3 mg/dL 0.2-1. 2 normal Not Available [address], [address], 01/25/2023 21:45:09 01/20/20 23 01/25/2023 COMPR EHENS MACKENZIE METAB OLIC PANEL alkaline phosphatase 61 U/L 31-125 normal Not Available [address], [address], 01/25/2023 21:45:09 01/20/20 23 01/25/2023 COMPR EHENS MACKENZIE METAB OLIC PANEL AST 13 U/L 10-30 normal Not Available [address], [address], 01/25/2023 21:45:09 01/20/20 23 01/25/2023 COMPR EHENS MACKENZIE METAB OLIC PANEL ALT 13 U/L 6-29 normal Not Available [address], [address], 01/25/2023 21:45:09 01/20/20 23 01/25/2023 ESTRO GENS, TOTAL , IA estrogens, total, ia 625 pg/mL Refer ence Range s for Total Estro gen: Folli cular Phase : 51-60 1 Lutea l Phase : 87-11 94 Postm enopa usal: < or = 214 Not Available [address], [address], 01/25/2023 21:45:10 01/20/20 23 01/25/2023 CBC (H/H, RBC, INDIC ES, WBC, PLT) white blood cell count 8.4 thous and/u L 3.8-10 .8 normal Not Available [address], [address], 01/25/2023 21:45:10 01/20/20 23 01/25/2023 CBC (H/H, RBC, INDIC ES, WBC, PLT) red blood cell count 4.53 júnior on/uL 3.80-5 .10 normal Not Available [address], [address], 01/25/2023 21:45:10 01/20/20 23 01/25/2023 CBC (H/H, RBC, INDIC ES, WBC, PLT) hemoglobin 13.6 g/dL 11.7-1 5.5 normal Not Available [address], [address], 01/25/2023 21:45:10 01/20/20 23 01/25/2023 CBC (H/H, RBC, INDIC ES, WBC, PLT) hematocrit 40.3 % 35.0-4 5.0 normal Not Available [address], [address], 01/25/2023 21:45:10 01/20/20 23 01/25/2023 CBC (H/H, RBC, INDIC ES, WBC, PLT) MCV 89.0 fL 80.0-1 00.0 normal Not Available [facility] [address], [address], 01/25/2023 21:45:10 01/20/20 23 01/25/2023 CBC (H/H, RBC, INDIC ES, WBC, PLT) MCH 30.0 pg 27.0-3 3.0 normal Not Available [address], [address], 01/25/2023 21:45:10 01/20/20 23 01/25/2023 CBC (H/H, RBC, INDIC ES, WBC, PLT) MCHC 33.7 g/dL 32.0-3 6.0 normal Not Available [address], [address], 01/25/2023 21:45:10 01/20/20 23 01/25/2023 CBC (H/H, RBC, INDIC ES, WBC, PLT) RDW 12.6 % 11.0-1 5.0 normal Not Available [address], [address], 01/25/2023 21:45:10 01/20/20 23 01/25/2023 CBC (H/H, RBC, INDIC ES, WBC, PLT) platelet count 231 thous and/u L 140-40 0 normal Not Available [address], [address], 01/25/2023 21:45:10 01/20/20 23 01/25/2023 CBC (H/H, RBC, INDIC ES, WBC, PLT) MPV 11.9 fL 7.5-12 .5 normal Not Available [address], [address], 01/25/2023 21:45:10 01/20/20 23 01/25/2023 PROGE STERO NE progesterone <0.5 NG/mL normal Refer ence Range s Femal e Folli cular Phase < 1.0 Lutea l Phase 2.6-2 1.5 Post menop ausal < 0.5 Pregn myron 1st Trime ster 4.1-3 4.0 2nd Trime ster 24.0- 76.0 3rd Trime ster 52.0- 302.0 Not Available [facility] [address], [address], 01/25/2023 21:45:11 01/20/20 23 01/25/2023 VITAM IN B12/F OLATE , SERUM PANEL vitamin B12 386 pg/mL 200-11 00 normal Pleas e Note: Altho ugh the refer ence range for vitam in B12 is 200-1 100 pg/mL , it has been repor maryanne that betwe en 5 and 10% of patie nts with value s betwe en 200 and 400 pg/mL may exper ience neuro psych iatri c and hemat ologi c abnor malit ies due to occul t B12 defic iency ; less than 1% of patie nts with value s above 400 pg/mL will have sympt oms. Not Available [facility] [address], [address], 01/25/2023 21:45:12 01/20/20 23 01/25/2023 VITAM IN B12/F OLATE , SERUM PANEL folate, serum >24.0 NG/mL normal Refer ence Range Low: <3.4 Borde rline : 3.4-5 .4 Kristen l: >5.4 Not Available [facility] [address], [address], 01/25/2023 21:45:12 01/20/20 23 01/25/2023 TSH W/REF DINORA TO FT4 TSH w/reflex to FT4 2.63 mIU/L normal Refer ence Range > or = 20 Years 0.40- 4.50 Pregn myron Range s First trime ster 0.26- 2.66 Secon d trime ster 0.55- 2.73 Third trime ster 0.43- 2.91 Not Available [facility] [address] [address] [place], [address], 01/25/2023 21:45:13 01/20/20 23 01/25/2023 VITAM IN D,25- OH,TO KHAI,I A vitamin D,25-oh,tota l,ia 28 NG/mL 30-100 low Vitam in D Statu s 25-OH Vitam in D: Defic iency : <20 ng/mL Insuf ficie ncy: 20 - 29 ng/mL Optim al: > or = 30 ng/mL For 25-OH Vitam in D testi ng on patie nts on D2-downs pplem entat ion and patie nts for whom quant itati on of D2 and D3 fract ions is requi red, the [facility](TM ) 25-OH VIT D, (D2,D 3), LC/MS /MS is recom chelsey d: order code 49057 (katia ents >2yrs ). See Note 1 Note 1 For addit ional infor tapan gill refer to http: //[facility] Martinez stDia gnost ics.c om/fa q/FAQ 199 (This link is being provi ded for infor janes mackay/ educjustino min purpo ses only. ) Not Available [facility] [employer] [address] [address] [place], [address], 01/25/2023 21:45:13 01/20/2001/25/2023 HEMOG LOBIN A1C hemoglobin A1C 5.0 %_of_ total _HGB <5.7 normal For the purpo se of louis onofre for the prese nce of diabe faith: <5.7% Consi stent with the absen ce of diabe faith 5.7-6 .4% Consi stent with incre ased risk for diabe faith (pred iabet es) > or =6.5% Consi stent with diabe faith This assay resul t is consi stent with a decre ased risk of diabe faith. Curre ntly, no conse nsus exist s leydi randall use of hemog lobin A1c for diagn osis of diabe faith in child james. Accor ding to Ameri can Diabe faith Assoc iatio n (ADA) guide lines , hemog lobin A1c <7.0% repre sents optim al contr ol in non-p regna nt diabe tic patie nts. Diffe rent metri cs may apply to speci fic patie nt popul ation s. Stand ards of Medic al Care in Diabe faith(A DA). Not Available [facility] [address] [address], [place], [address], 01/25/2023 21:45:14 01/26/20 21 12/23/2020 elect romyo gram + nerve condu ction study No observ ation record ed. [id number] [facility] (Medical Records) [address] [facility] [address], [place], [address], 04/13/2022 09:21:47 06/23/19 23 06/22/2022 XR, foot No observ ation record ed. [id number] [facility] [address] [place], [address], 06/22/2022 10:50:18 Result Notes None recorded. Problems Name Problem SNOMED Code Status Onset Date Resolution Date Notes Provider Name and Address Organization Details Recorded Time Polycysti c ovary syndrome 334741951 Active 2020 Not Available [employer] 3 09:17:19 Pain in thoracic spine 584359731 Completed Not Available [facility] 3 09:17:20 Low back pain 476630634 Completed Not Available [facility] 3 09:17:20 Ulnar neuropath y 443484765 Active 2020 Not Available [facility] 3 09:17:20 Obesity 833528398 Active 2020 Not Available [facility] 3 09:17:20 Anxiety 63802598 Active 2020 Not Available [facility] 3 09:17:20 Hyperlipi demia 37865544 Active 2020 Not Available [facility] 3 09:17:20 Vitamin B12 deficienc y (non anemic) 49927869 Active 2020 Not Available [facility] 3 09:17:20 Pain in left foot 80070880746 9107 Active 2022 AMY Hassan [address] [facility] [address], [place], [address] , [facility] [employer] [facility] [employer] [facility] 3 16:40:55 Bacterial conjuncti vitis 697323931 Active 2022 Jessie Cat MD [address] [address], [place], [address] , [facility] [employer] [facility] [employer] [facility] 3 11:18:33 Fatigue 07111514 Active 2022 AMY Hassan [address] [address], [place], [address] , [facility] [employer] [facility] [employer] [facility] 3 10:12:58 Problem Notes None recorded. Procedures Surgical History Date Name Laterality Status Provider Name and Address Organization Details Recorded Time Lasik completed Not Available [facility] 02/2022 09:12:58 Imaging Results None recorded. Procedure Notes None recorded. Medical Equipment None Reported. Allergies No known drug allergies Medications Name Sig Start Date Stop Date Status Note LastModified by Organization Details LastModified Time fed-ex priority overnight -MON FEDEX HOLD WITH SIG MM - ATTN MICHAEL WHEELER AND CARRI WHEELER 01/18 completed Not Available Not Available Not Available progesteron e (micro) 200mg supp UNWRAP AND INSERT 1 SUPPOSITO RY VAGINALLY TWICE DAILY. DO NOT START UNTIL INSTRUCTE D active Not Available Not Available No t Available fed-ex monday-MON PT HM NO SIG CC 01/18 completed Not Available Not Available Not Available fed-ex standard overnight MON-MON OV TO PT HM SIG REQ 03/22 DECLINED COUNSELIN G; A.P 01/18 completed Not Available Not Available Not Available h.c.g trigger 6500units/m l INJECT SUBCUTANE OUSLY DIRECTED - SINGLE DOSE 01/18 completed Not Available Not Available Not Available sharp container USE TO DISPOSE OF NEEDLES 01/18 completed Not Available Not Available Not Available medroxyprog esterone 10 mg tablet TAKE 2 TABLETS BY MOUTH EVERY DAY DIRECTED 01/18 completed Not Available Not Available Not Available azithromyci n 250 mg tablet TAKE 2 TABLETS (500 MG) BY ORAL ROUTE ONCE DAILY FOR 1 DAY THEN 1 TABLET (250 MG) BY ORAL ROUTE ONCE DAILY FOR 4 DAYS 01/18 completed Not Available Not Available Not Available pravastatin 40 mg tablet Take 1 tablet every day by oral route for 90 days. active Not Available Not Available No t Available glyburide 2.5 mg tablet TAKE 1 TABLET BY MOUTH EVERY DAY active Not Available Not Available No t Available meloxicam 15 mg tablet 01/31 completed Not Available Not Available Not Available prednisone 20 mg tablet 01/12 completed Not Available Not Available Not Available Tubersol 5 tub. unit/0.1 mL intradermal injection solution Inject 0.1 mL by intraderm al route. 01/18 completed Not Available Not Available Not Available Pregnyl 10,000 unit intramuscul ar solution 01/18 completed Not Available Not Available Not Available cyanocobala min (vit B-12) 1,000 mcg tablet Take 1 tablet every day by oral route for 90 days. active Not Available Not Available No t Available acetaminoph en 300 mg-codeine 30 mg tablet TAKE 1 TABLET BY MOUTH EVERY 6 HOURS NEEDED FOR PAIN 01/18 completed Not Available Not Available Not Available progesteron e 50 mg/mL intramuscul ar oil active Not Available Not Available Not Available alprazolam 0.25 mg tablet TAKE 1 TABLET BY MOUTH EVERY 12 HOURS NEEDED 01/18 completed Not Available Not Available Not Available OneTouch Ultra Test strips USE TO TEST SIX TIMES DAILY active Not Available Not Available No t Available dexamethaso ne 1 mg tablet 01/18 completed Not Available Not Available Not Available Sure Comfort Insulin Syringe 1/2 mL 28 gauge x 1/2 USE DIRECTED [OMNITROP E MEDICATIO N] 01/18 completed Not Available Not Available Not Available erythromyci n 5 mg/gram (0.5 %) eye ointment APPLY THIN LAYER IN RIGHT EYE THREE TIMES DAILY. DISCONTIN UE WHEN IRRITATIO N RESOLVES 01/18 completed Not Available Not Available Not Available misoprostol 200 mcg tablet INSERT 4 TABLETS VAGINALLY ONCE DIRECTED 01/18 completed Not Available Not Available Not Available promethazin e 25 mg tablet TAKE 1/2 TABLET BY MOUTH EVERY 6 TO 8 HOURS NEEDED 01/18 completed Not Available Not Available Not Available polymyxin B sulfate 10,000 unit-trimet hoprim 1 mg/mL eye drops INSTILL 1 DROP INTO AFFECTED EYE(S) BY OPHTHALMI C ROUTE EVERY 6 HOURS x 7 days 08/01 completed Not Available Not Available Not Available progesteron e micronized 200 mg capsule TAKE 1 CAPSULE BY MOUTH EVERY NIGHT AT BEDTIME active Not Available Not Available No t Available indomethaci n 50 mg capsule TAKE 1 CAPSULE BY MOUTH THREE TIMES DAILY DIRECTED 01/18 completed Not Available Not Available Not Available estradiol 2 mg tablet TAKE 1 TABLET BY MOUTH THREE TIMES DAILY 01/18 completed Not Available Not Available Not Available pravastatin 20 mg tablet TAKE ONE TABLET BY MOUTH AT BEDTIME 11/22 completed Not Available Not Available Not Available letrozole 2.5 mg tablet TAKE 2 TABLETS BY MOUTH EVERY DAY DIRECTED 01/18 completed Not Available Not Available Not Available ketoconazol e 2 % topical cream APPLY TO RASH ON FACE TWO TIMES A DAY FOR 3-4 WEEKS 01/18 completed Not Available Not Available Not Available BD Luer-Mikki Syringe 3 mL 22 x 1 1/2 USE DIRECTED [OMNITROP E MEDICATIO N] 01/18 completed Not Available Not Available Not Available doxycycline hyclate 100 mg tablet 01/18 completed Not Available Not Available Not Available leuprolide 1 mg/0.2 mL subcutaneou s kit 01/18 completed Not Available Not Available Not Available amoxicillin 875 mg-potassiu m clavulanate 125 mg tablet 01/12 completed Not Available Not Available Not Available neomycin-po lymyxin-hyd rocort 3.5 mg-10,000 unit/mL-1 % ear drops,susp INSTILL 4 DROPS INTO AFFECTED EAR(S) BY OTIC ROUTE 3 TIMES PER DAY X 7 DAYS 05/10 completed Not Available Not Available Not Available Sure Comfort Insulin Syringe 1 mL 29 gauge x 1/2 USE DIRECTED [H.C.G. MEDICATIO N] 01/18 completed Not Available Not Available Not Available ganirelix 250 mcg/0.5 mL subcutaneou s syringe 01/18 completed Not Available Not Available Not Available rosuvastati n 20 mg tablet TAKE 1 TABLET BY MOUTH EVERYDAY AT BEDTIME 01/18 completed Not Available Not Available Not Available Follistim AQ 600 unit/0.72 mL subcutaneou s cartridge INJECT 75 IU SUBCUTANE OUSLY ONCE DAILY DIRECTED DOSAGE MAY RANGE BETWEEN 75-300IU DAILY BASED ON MD INSTRUCTI ONS 01/18 completed Not Available Not Available Not Available Menopur 75 unit subcutaneou s solution 01/18 completed Not Available Not Available Not Available Follistim AQ 900 unit/1.08 mL subcutaneou s cartridge 01/18 completed Not Available Not Available Not Available Omnitrope 5.8 mg subcutaneou s solution INJECT 25 UNITS SUBCUTANE OUSLY ONCE DAILY FOR 8 DAYS 01/18 completed Not Available Not Available Not Available Estarylla 0.25 mg-0.035 mg tablet TAKE 1 TABLET BY MOUTH EVERY DAY DIRECTED. TAKE ACTIVE PILLS ONLY 01/18 completed Not Available Not Available Not Available Trulicity 0.75 mg/0.5 mL subcutaneou s pen injector INJECT 0.5MG EVERY WEEK BY SUBCUTANE OUS ROUTE 06/21 completed Not Available Not Available Not Available Ozempic 0.25 mg or 0.5 mg (2 mg/1.5 mL) subcutaneou s pen injector INJECT 0.25MG WEEKLY X 4 WEEKS THEN INCREASE TO 0.5MG WEEKLY 01/31 completed Not Available Not Available Not Available OneTouch Ultra2 Meter USE TO TEST FOUR TIMES DAILY active Not Available Not Available No t Available OneTouch Delica Plus Lancet 33 gauge USE TO TEST FOUR TIMES DAILY. AFTER FASTING AND AFTER MEALS active Not Available Not Available No t Available Ozempic 1 mg/dose (4 mg/3 mL) subcutaneou s pen injector INJECT 1 MG SUBCUTANE OUSLY EVERY WEEK 01/18 completed Not Available Not Available Not Available BinaxNOW COVID-19 Ag Self Test kit TEST DIRECTED TODAY 01/12 completed Not Available Not Available Not Available Wegovy 1.7 mg/0.75 mL subcutaneou s pen injector Inject 1.7 mg every week by subcutane ous route. 08/18 completed Not Available Not Available Not Available Wegovy 1 mg/0.5 mL subcutaneou s pen injector Inject 1 mg every week by subcutane ous route. 08/18 completed Not Available Not Available Not Available Wegovy 0.25 mg/0.5 mL subcutaneou s pen injector OCE WEEKLY 08/18 completed Not Available Not Available Not Available Wegovy 0.5 mg/0.5 mL subcutaneou s pen injector INJECT 0.5MG EVERY WEEK BY SUBCUTANE OUS ROUTE 08/18 completed Not Available Not Available Not Available Paxlovid 300 mg (150 mg x 2)-100 mg tablets in a dose pack use as directed twice a day x 5 days. active Not Available Not Available No t Available Ozempic 2 mg/dose (8 mg/3 mL) subcutaneou s pen injector INJECT 2 MG EVERY WEEK BY SUBCUTANE OUS ROUTE 01/18 completed Not Available Not Available Not Available Vitals Date Recorded Body height Body mass index (BMI) Body weight Body temperature Heart rate Oxygen saturation Oxygen saturation in Arterial blood by Pulse oximetry Systolic blood pressure Diastolic blood pressure Provider Name and Address Organization Details Last Updated DateTime 4 170.18 cm 43.4 kg/m2 988805. 09 g 97.4 [degF] 73 /min 98 % 98 % 120 mm[Hg] 84 mm[Hg] Mahogany Fagan RN [facility] 4 08:07:18 Date Recorded Body height Body mass index (BMI) Body weight Body temperature Oxygen saturation Oxygen saturation in Arterial blood by Pulse oximetry Heart rate Systolic blood pressure Diastolic blood pressure Provider Name and Address Organization Details Last Updated DateTime 3 170.18 cm 41.5 kg/m2 242895. 98 g 96.8 [degF] 97 % 97 % 69 /min 132 mm[Hg] 76 mm[Hg] Ludivina Lim CMA [place] [employer] [facility] 3 11:08:32 Date Recorded Body mass index (BMI) Body height Oxygen saturation Oxygen saturation in Arterial blood by Pulse oximetry Heart rate Body temperature Body weight Systolic blood pressure Diastolic blood pressure Provider Name and Address Organization Details Last Updated DateTime 1 44.8 kg/m2 170.18 cm 97 % 97 % 65 /min 96.6 [degF] 499078. 42 g 120 mm[Hg] 78 mm[Hg] Not Available [facility] 3 09:14:52 Date Recorded Body height Body mass index (BMI) Body weight Body temperature Heart rate Respiratory rate Oxygen saturation Oxygen saturation in Arterial blood by Pulse oximetry Systolic blood pressure Diastolic blood pressure Provider Name and Address Organization Details Last Updated DateTime 4 170.18 cm 45.1 kg/m2 964419. 95 g 97.3 [degF] 74 /min 20 /min 98 % 98 % 150 mm[Hg] 100 mm[Hg] Kelly Sargent RN [place] - [facility] [place] [facility] 4 08:34:23 Date Recorded Body mass index (BMI) Body height Oxygen saturation Oxygen saturation in Arterial blood by Pulse oximetry Heart rate Body temperature Body weight Systolic blood pressure Diastolic blood pressure Provider Name and Address Organization Details Last Updated DateTime 2 41.8 kg/m2 170.18 cm 98 % 98 % 68 /min 97.2 [degF] 725930. 16 g 126 mm[Hg] 84 mm[Hg] Not Available [facility] 3 09:14:52 Social History Question Answer Notes LastModified by Organizat ion Details LastModified Time Tobacco Smoking Status Never Smoker Not Available [facility] 04/13/2022 09:12:44 What Is Your Level Of Caffeine Consumption? Occasional [id number] Information not available 04/13/2022 In The 14 Days Before Symptom Onset, Have You Had Close Contact With A Laboratory-confir med COVID-19 While That Case Was Ill? No Information not available 01/19/2024 In The 14 Days Before Symptom Onset, Have You Had Close Contact With A Person Who Is Under Investigation For COVID-19 While That Person Was Ill? No Information not available 01/19/2024 What Type Of Diet Are You Following? REGULAR [id number] Information not available 04/13/2022 What Is The Highest Grade Or Level Of School You Have Completed Or The Highest Degree You Have Received? [id number] Information not available 04/13/2022 Have There Been Any Changes To Your Family Or Social Situation? Yes Information no t available 01/19/2024 Do You Use Insect Repellent Routinely? Yes Information not available 01/19/2024 Where Do You Live? [facility] Information not available 01/19/2024 Do You Have Any Pets? No Information not available 01/19/2024 What Is Your Relationship Status? [id number] Information not available 04/13/2022 Do You Use Your Seat Belt Or Car Seat Routinely? Yes Information not available 01/19/2024 Do You Have Smoke And Carbon Monoxide Detectors In Your Home? Yes Information not available 01/19/2024 Are You Passively Exposed To Smoke? No Information no t available 01/19/2024 Do You Participate In Social Media? Yes Information not available 01/19/2024 Do You Use Sunscreen Routinely? Yes Information not available 01/19/2024 Have You Recently Traveled Abroad? No Information not available 01/19/2024 Are You Currently In School? Yes [id number] Information not available 04/13/2022 Sex: Female Functional Status Question Answer Note LastModified by Organizat ion Details LastModified Time Do you use any illicit or recreational drugs? No [id number] Information not available 04/13/2022 Do you or have you ever used any other forms of tobacco or nicotine? No [id number] Information not available 04/13/2022 What is your level of alcohol consumption? None Information not available 01/19/2024 What is your occupation? teacher [id number] 26 Information not available 04/13/2022 What is your exercise level? Moderate [id number] 26 Information not available 04/13/2022 Mental Status Question Answer Note LastModified by Organization D etails LastModified Time Do you feel stressed (tense, restless, nervous, or anxious, or unable to sleep at night)? [id number] Information not available 01/19/2024 Family History Relationship Description Onset Age of this Age Resolved Age Notes LastModified by Organization Details LastModified Time Father Hypercholest cherieolemia [id number] Not available 04/13/2022 09:12:59 Unspecified Relation Diabetes mellitus [id number] Not available 04/13/2022 09:12:59 Medical History Condition Response HYPERTENSION Y HIGH CHOLESTEROL / HYPERLIPIDEMIA Y Gynecological History Statement/Question Response Date of LMP Obstetrics History GPAL:G 0 P 0 0 0 0 Past Encounters Encounter ID Performer Location Encounter Start Date Encounter Closed Date Diagnosis/Indication Diagnosis SNOMED-CT Code Diagnosis ICD10 Code Diagnosis Note [id number] Lane Tavares MD [facility] [place] [address] [facility] [address] , [place] [address] 10/22/2020 00:00:00 10/22/2020 10:13:[id number] Tavares MD [facility] [place] [address] [facility] [address] , [place] [address] 10/29/2020 00:00:00 10/29/2020 13:31:37 [id number] AMY Hassan [facility] [place] [address] [place] [address] 01/31/2022 00:00:00 01/31/2022 09:15:31 [id number] Jessie Cat MD [facility] [place] [address] [place] [address] 08/01/2022 10:57:43 08/01/2022 11:23:18 Tuberculosis screening 541533246 Z11.1 Hyperlipidemia 98798567 E78.5 (05/04/22) TC 128, HDL 34, Tri 232, LDL 65Continue rosuvastat in 20mg daily. Fit for work 161648733 Z 78.9 Up to date on routine labs. 12/17/21- A1C 5.310/07/04 - BMP, hepatic panel, B12/folate Covid vaccines- recommende d continue boostersFl u vaccine- 11/2021Tet anus vaccine- 2017 Pap- 11/2021, wnlColonos copy- recommende d age 46Mammogra m- recommende d age 41 Recommende d routine eye exams and dental cleanings. [id number] AUDRA Lujan [facility] Primary Care [facility] [address] [place] [address] 03/21/2023 08:01:18 03/21/2023 10:57:05 Hyperlipidemia 22867066 E78.5 -currently on fish oil-discus sed with her OB to stop taking rosuvastat in and discuss with primary-LD L currently 185, encouraged to manage with diet and exercise-p ossibly restarting rosuvastat in after she has the baby [id number] Margarito Campbell MD [facility] [address] [place] [address] 01/19/2024 08:21:34 01/19/2024 09:01:18 Adult health examination 672808880 Z00.00 Patient overall healthy, currently 9 weeks , history of significan t miscarriag es.Health maintenanc e reviewedPa tient questions answered Hyperlipidemia 31043922 E78.5 Currently managed with diet and exercise, not taking medication s due to fertility treatments Would like to restart meds after delivery Polycystic ovary syndrome 481986378 E28.2 Worsening symptoms. Previously managed with Ozempic, would like to do GLP1 again after delivery Vitamin B1 2 deficiency (non anemic) 03564404 E53.8 Fatigue 45526943 R53.83 Health Concerns Section Related Observation LastModified by Organization Detai ls LastModified Time None Recorded Concern Status LastModified by Organization Details LastModified Time None Recorded Advance Directives Directive None Recorded Payers Encounter Date Sequence Insurance Name Policy Number Policy Neumann Covered Member ID Neumann Member ID Guarantor Name 08/01/2022 1 [employer] (POS II) [id number] Carri Wheeler [id number] Carri S Wheeler 03/21/2023 1 [place] [id number] Carri S Wheeler [id number] Carri S Wheeler 01/19/2024 1 [place] [id number] Carri S Wheeler [id number] Carri S Wheeler Notes Date Note Type Note Provider Name and Address Organization Details Recorded Time 08/01/2022 text/html Pt. here needing physical form completed for work and TB test. She had last physical 01/31/22. AMY Hassan [address] [facility], [facility] [address], [place], [address], [employer] [facility] 08/01/2022 11:58:03 03/21/2023 text/html Pt is here to ta aissatou about hyperlipidemia AUDRA Lujan [address] [facility], [facility] [address], [place], [address], [employer] [facility] 03/21/2023 14:07:38 01/19/2024 text/html Carri Wheeler is a 38 year old female patient here today for an annual wellness visit She is overall healthy She is currently 9 weeks via IVF. Was seen by Dr. More and will now see Dr. Glenys Quevedo History of hyperlipidemia, unable to take statins the last year due to IVF treatments History of PCOS, has noticed new dark patch on her neck Flu shot: OVID vaccines: x4Tdap: unsure, will get with pregnancyMammogram: not indicatedWWE: 02/2023 Jerica coronado, [place] [employer] [facility] 01/22/2024 12:51:28 OBGyn Episode No OBEpisode recorded.
[2024-07-15 15:01] VITALS: BP 113/72; PULSE 68
[2024-07-15 15:06] VITALS: BP 113/70; PULSE 73
[2024-07-15 15:58] LABS: OBXCEM ROM Plus Negative (Negative)
== END 2024-07-15 15:10 | disposition home or self-care (01) ==
LOC: ANHOBOP 14:32 → ANHOBPP 14:34
PROVIDERS: Visit Provider Obstetrics & Gynecology
DX: O42.90 Premature rupture of membranes, unspecified as to length of time between rupture and onset of labor, unspecified weeks of gestation (principal); Z3A.00 Weeks of gestation of pregnancy not specified
CPT/HCPCS: 59025; 84112; 99199

== ENCOUNTER 2024-07-31 11:40 | Outpatient (CLI) | payer BC, SELFPAY ==
[2024-07-31] VITALS (7 sets, daily range): BP systolic 117–129; BP diastolic 75–86; PULSE 70–75
[2024-07-31 12:39] LABS: Basophils Percent Auto 0.3 % (0.2-1.2); Eosinophils Percent Auto 0.4 % (0-4.4); Hematocrit 38.8 % (37.0-47.0); Immature Granulocyte Absolute 0.06 K/mm3 (0.00-0.031); Immature Granulocyte Percent A 0.6 % (0-0.5); Lymphocytes Absolute Auto 1.88 K/mm3 (0.9-3.2); Lymphocytes Percent Auto 19.2 % (18.3-44.2); Mean Corpuscular HGB Conc 33.5 g/dl (32-36); Mean Corpuscular Hemoglobin 29.4 pg (26-34); Mean Corpuscular Volume 87.8 fl (80-100); Mean Platelet Volume 12.6 fl (7.4-10.4); Monocytes Absolute Auto 0.6 K/mm3 (0.1-0.6); Monocytes Percent Auto 6.2 % (2.6-8.5); Neutrophils Absolute Auto 7.2 K/mm3 (1.3-6.7); Neutrophils Percent Auto 73.3 % (45.5-73.1); Platelet Count Result 165 k/mm3 (150-375); Red Blood Count 4.42 M/mm3 (4.2-5.4); Red Cell Distribution Width 13.2 % (11.5-14.5); White Blood Count 9.8 K/mm3 (4.5-10.0)
[2024-07-31 13:01] LABS: Creatinine Urine 57.1 mg/dL; Total Protein Urine Random 13 mg/dL; Ur Ttl Prot Creatinine Ratio 0.23 mg/mg (0-0.20)
[2024-07-31 13:02] LABS: Alanine Aminotransferase 16 U/L (6-35); Albumin Level 3.4 g/dL (3.5-5.1); Alkaline Phosphatase 90 U/L (38-126); Anion Gap 7 mmol/L (4-12); Aspartate Amino Transferase 21 U/L (14-36); Bilirubin,Total 0.3 mg/dL (0.2-1.3); Blood Urea Nitrogen 9 mg/dL (7-17); Calcium 9.2 mg/dL (8.4-10.2); Carbon Dioxide 20 mmol/L (22-30); Chloride 107 mmol/L (98-107); Estimated Glomerular Filt Rate > 60; Glucose 86 mg/dL (65-110); Potassium 4.1 mmol/L (3.4-5.0); Sodium 134 mmol/L (137-145); Total Protein 6.6 g/dL (6.3-8.2); Uric Acid 4.5 mg/dL (2.5-7.5)
[2024-07-31 13:04] LABS: Add Urine Microscopic? YES; Appearance Urine Clear (Clear); Bacteria Urine 2+ /hpf; Bilirubin Urine Negative (Negative); Blood Urine Negative (Negative); Color Urine Yellow (Yellow); Glucose Urine UA Negative (Negative); Ketones Urine Negative (Negative); Leukocyte Esterase Ur 2+ LEU/UL (Negative); Need Manual Microscopic Reviewed; Nitrate Urine Negative (Negative); Non Pathogenic Casts 0-2; Protein Urine Negative (Negative); RBC Urine 0-2 /hpf (0-2); Specific Grav Ur 1.009 (1.001-1.035); Squamous Epithelial Cell Urine Few /hpf (Few); Urobilinogen Urine 0.2 mg/dL (<2.0)
--- NOTE | 2024-07-31 13:13 | PC.NURSE ---
Dr. Nava responded to page sent at [phone]. Reviewed lab results. Pt. is ok to dc home. Pt. to call the office for an appointment on monday or monday then Dr. Nava will set up induction d/t Hx basim.
--- OUTSIDE RECORDS SUMMARY | 2024-07-31 13:31 | XMS_ITS | Encounter Summary ---
Author Organization [facility] Address [address] [place] [address] Care Team Providers Care Credit Reporting Clerk Name Role Phone Unavailable Primary Care Provider Unavailabl e Encounter Details Date Type Department Care Team (Late st Contact Info) Description 09/28/2023 Lab Requisition [facility] [address] [place] [address] Nan More MD Missed Social History Tobacco [...] - 98.0 fL 09/28/2023 10:28 AM CDT [facility] MCH 28.1 26.7 - 33.6 pg 09/28/2023 10:28 AM CDT [facility] MCHC 32.1 31.7 - 36.3 g/dL 09/28/2023 10:28 AM [facility] RDW-CV 13.3 11.3 - 14.8 % 09/28/2023 10:28 AM [facility] Platelet Count 224 150 - 420 x10E9/L 09/28/2023 10:28 AM [facility] MPV 12.3(H) 7.8 - 11.4 fL 09/28/2023 10:28 AM [facility] Neutrophil % 54.2 41.0 - 74.0 % 09/28/2023 10:28 AM [facility] Lymphocyte % 37.2 17.0 - 47.0 % 09/28/2023 10:28 AM [facility] Monocyte % 6.0 3.0 - 11.0 % 09/28/2023 10:28 AM [facility] Eosinophil % 1.5 0.0 - 7.0 % 09/28/2023 10:28 AM [facility] Basophil % 0.6 0.0 - 1.6 % 09/28/2023 10:28 AM [facility] Immature Granulocytes % 0.5 0.0 - 1.0 % 09/28/2023 10:28 AM [facility] Neutrophil Absolute 5.47 1.60 - 7.50 x10E9/L 09/28/2023 10:28 AM [facility] Lymphocyte Absolute 3.75 1.00 - 4.40 x10E9/L 09/28/2023 10:28 AM [facility] Monocyte Absolute 0.60 0.15 - 1.00 x10E9/L 09/28/2023 10:28 AM [facility] Eosinophil Absolute 0.15 0.00 - 0.60 x10E9/L 09/28/2023 10:28 AM [facility] Basophil Absolute 0.06 0.00 - 0.13 x10E9/L 09/28/2023 10:28 AM [facility] Blood BLOOD SPECIMEN / Unknown 09/28/2023 8:07 AM CDT 09/28/2023 10:16 AM CDT us Nan More MD LAB - HEMATOLOGY ORDERABLES Gayla min Result [facility] [address] [place] [address] documented in this encounter Visit Diagnoses Diagnosis Missed (HCC) Missed documented in this encounter
--- OUTSIDE RECORDS SUMMARY | 2024-07-31 13:31 | XMS_ITS | Clinical Summary ---
Author Organization [facility] Address [address] [facility] Attn: Epic Prelude ADT RUDY CHAVIRA [address] Care Team Providers Care Wet Process Miller Head Name Role Phone Unavailable Primary Care Provider [...]
--- OUTSIDE RECORDS SUMMARY | 2024-07-31 13:31 | XMS_ITS | Clinical Summary ---
Author Organization [facility] Address [address] [place] [address] Care Team Providers Care Foreign Exchange Trader Name Role Phone Unavailable Primary Care Provider Unavailabl e Source Comments [facility],non-owned Affiliates and Associated Physician Practices is amultiple site organization consisting of ambulatory clinics and hospital sitesin [place], [place], [place] and [place]. This disclosure is being madepursuant to the Care Everywhere program and may not contain all information available regarding this patient. Last updated 17.[facility] Encounters Date Type Department Care Team Description 05/30/2024 9:09 AM CDT - 05/30/2024 11:59 PM CDT Hospital Encounter [address] [address] Pavel Cheek MD Peterson, Renuka E., MD Discharge Disposition: Home or Self Care 05/30/2024 9:08 AM CDT Hospital Encounter [address] [address] Maria C Sheridan MD Discharge Disposition: Home or Self Care 05/14/[address] [address] Malina Langston Future Appointment 05/09/2024 Orders Only [address] [address] Yohana Juárez RN Prior with congenital cardiac [...] 05/30/2024 Exam Date/Time: 05/30/2024 9:26 AM Site: [facility] Current Location: CARE EStudy Quality: Diagnostic quality Staff Ordering Provider: Pavel Cheek Interpreting Physician: Maria C Sheridan MD Dip Brazier: Toyin Frazier [facility] Study Info Procedure: ECHO COMPLETE CG Indications: [...] 05/30/2024 Exam Date/Time: 05/30/2024 9:26 AM Site: [facility] Current Location: CARE EStudy Quality: Diagnostic quality Staff Ordering Provider: Pavel Cheek Interpreting Physician: Maria C Sheridan MD Dip [place]: Toyin Frazier [facility] Study Info Procedure: ECHO COMPLETE CG Indications: [...] from Last 3 Months Insurance [facility] * Guarantor: CARRI WHEELER Account Type Relation to Patient Date of Phone Billing Address Personal/Family [address] [place] [address] * Guarantor: CARRI WHEELER Account Type Relation to Patient Date of Phone Billing Address Personal/Family [address] [place] [address] * Guarantor: CARRI WHEELER Account Type Relation to Patient Date of Phone Billing Address Personal/Family [address] [place] [address]
--- OUTSIDE RECORDS SUMMARY | 2024-07-31 13:31 | XMS_ITS | Continuity of Care Document ---
Author Organization [facility] Address [address] [place] [address] Phone Care Team Providers Care Financial Officer Name Role Phone Unavailable Unavailable Unavailable Allergies, Adverse Reactions, Alerts Substance Reaction Status Criticality No Known Allergies Active No Inform ation Procedures Procedure Date Telehealth Audio Visit PHONE E/M BY PHYS 5-10 MIN SARS Telehealth Audio Visit OFFICE/OUTPATIENT VISIT, EST SARS Advance Directives Directive Yes / No Effective Date File Name No Information Encounters Encounter Description Practice Location Reason(s) For Visit Diagnoses Date Provider Providers Copied on Encounter [facility], [address], [place], [place], [id number] , tel: [phone] [place] No Information 1 No Information PHONE E/M BY PHYS 5-10 MIN [facility], [address], [place], [place], [id number] , tel: [phone] [place] musculoskeleta l pain (chief complaint) Foot pain, left 1 No Information [facility], [address], [place], [place], [id number] , tel: [phone] [place] No Information 0 No Information OFFICE/OUTPA TIENT VISIT, EST [facility], [address], [place], [place], [id number] , tel: [phone] [place] covid exposure (chief complaint) Close exposure to 2019-nCoV 0 No Information Family History Family Member Type Diagnosis Age At Onset No Information Payers Payer name Insurance type Covered libertarian ID Authoriza tion(s) No Information Social History Type Description Quantity Date Captured Comments Alcohol Use Details Unknown Caffeine Use Details Unknown Tobacco Use Status No Information Smoking Status No Information Sex Female Sexual Orientation Straight or heterosexual Jan Gender Identity Female Chief Complaint And Reason For Visit No Information Reason For Referral Reason For Referral No Information History Of Present Illness Encounter Date Complaint History Of Prese nt Illness musculoskeletal pain It occurs c onstantly and is worsening. Location: left foot (top of foot). The pain is aching and sharp. Context: there is an injury. Trauma on 05/22/2020. The pain is aggravated by movement. There are no relieving factors. Associated symptoms include decreased mobility, joint tenderness, limping and nocturnal pain. Pertinent negatives include tingling in the arms. Additional information: Stepped off curb on 05/22/2020 - Has not treated with anything. covid exposure Patient has been exposed to close personal contact of someone who is confirmed Covid-19 positive - one week ago . Currently is experiencing symptoms - cough, headache and stuffy nose. 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 Change positions frequently (ie, don't go to bed and stay there). Use raudel wrap for supportElevate foot as much as possible throughout day Gradually increase activity as tolerated. Use anti-inflammatory medication (i.e., ibuprofen) regularly for the short term, always take it with food, and stop it if stomach upset is experienced. NSAIDs - 3 times a day with food ORNaprosyn 2 times daily with foodIce 3-4 times dailyOTC analgesic creams to affected areasFoot x-ray ordered todayConsider referral to Physical therapyFollow up in 2 weeks if no improvement and as needed Teachback technique utilized for patient education. Related to Foot pain, left exposed to someone d iagnosed with Covid-19Patient currently has symptoms - cough, congestion and headacheAdvised to self quarantine for 2 weeksAppointment made for [facility] testing locationIf fever of respiratory symptoms develop - go to ER for evaluationPlease call with any concerns The patient provided verbal informed consent for the use of telehealth visit. Pt was informed that all usual policies, procedures, and payments applied, and details of the visit would be documented in their medical record. Patient expressed understanding and discussion was conducted in their preferred language. Related to Close exposure to 2019-nCoV Assessments Type Assessment Date No Information Patient Care Teams Name Effective Dates (start - stop) Status Members No Information
--- OUTSIDE RECORDS SUMMARY | 2024-07-31 13:31 | XMS_ITS | Encounter Summary ---
Author Organization [facility] Address [address] [place] [address] Care Team Providers Care Front Sight Attacher Name Role Phone Unavailable Primary Care Provider Unavailabl e Encounter Details Date Type Department Care Team (Late st Contact Info) Description 09/27/2023 Lab Requisition [facility] [address] [place] [address] Nan More MD Missed Social History Tobacco [...] 80.0 - 98.0 fL 09/27/2023 12:22 PM [facility] MCH 28.3 26.7 - 33.6 pg 09/27/2023 12:22 PM [facility] MCHC 32.5 31.7 - 36.3 g/dL 09/27/2023 12:22 PM [facility] RDW-CV 13.3 11.3 - 14.8 % 09/27/2023 12:22 PM [facility] Platelet Count 230 150 - 420 x10E9/L 09/27/2023 12:22 PM [facility] MPV 11.9(H) 7.8 - 11.4 fL 09/27/2023 12:22 PM [facility] Neutrophil % 63.6 41.0 - 74.0 % 09/27/2023 12:22 PM [facility] Lymphocyte % 28.5 17.0 - 47.0 % 09/27/2023 12:22 PM [facility] Monocyte % 5.7 3.0 - 11.0 % 09/27/2023 12:22 PM [facility] Eosinophil % 1.4 0.0 - 7.0 % 09/27/2023 12:22 PM [facility] Basophil % 0.4 0.0 - 1.6 % 09/27/2023 12:22 PM [facility] Immature Granulocytes % 0.4 0.0 - 1.0 % 09/27/2023 12:22 PM [facility] Neutrophil Absolute 6.46 1.60 - 7.50 x10E9/L 09/27/2023 12:22 PM [facility] Lymphocyte Absolute 2.90 1.00 - 4.40 x10E9/L 09/27/2023 12:22 PM [facility] Monocyte Absolute 0.58 0.15 - 1.00 x10E9/L 09/27/2023 12:22 PM [facility] Eosinophil Absolute 0.14 0.00 - 0.60 x10E9/L 09/27/2023 12:22 PM [facility] Basophil Absolute 0.04 0.00 - 0.13 x10E9/L 09/27/2023 12:22 PM [facility] Blood BLOOD SPECIMEN / Unknown 09/27/2023 10:42 AM CDT 09/27/2023 12:16 PM CDT us Nan More MD LAB - HEMATOLOGY ORDERABLES Gayla min Result Performing Organization Address City/State/[facility] Co de Phone Number [facility] [address] [place], [place] [id number] documented in this encounter Visit Diagnoses Diagnosis Missed (HCC) Missed documented in this encounter
--- OUTSIDE RECORDS SUMMARY | 2024-07-31 13:32 | XMS_ITS | Clinical Summary ---
Author Organization [facility] Address [address] [place] [id number] Care Team Providers Care Monitoring Tech Name Role Phone Lu Oneal NP Primary Care Provider [phone] Allergies No known active allergies Medications Cyanocobalamin (VITAMIN B 12) 500 MCG Tab Active fish oil (OMEGA-3 FATTY ACID) 1000 MG Cap capsule Active aspirin EC (ECOTRIN) 81 MG tablet Take 1 tablet (81 mg total) by mouth daily. Active vitamin, low iron, ( VITAMIN WITH IRON) 27-0.8 mg tablet Take 1 tablet by mouth daily. Active Active Problems Problem Noted Date Diagnosed Date Decreased movement aff ecting management of in second trimester ([facility]) 04/06/2024 Estimated Date of Delivery Comme nts Yes 08/21/2024 Based on Other B asis, PT STATED Family History Medical History Relation Comments No Known Problems Father No Known Problems Mother Relation Status Comments Father Mother Social History Tobacco Use Types Packs/Day Years Used Date Smoking Tobacco: Never Passive Smoke Exposure: Never Smokeless Tobacco: Never Tobacco Cessation:Counseling Given: No Comments:Never Smoked Alcohol Use Standard Drinks/Week Comments Not Currently 0 (1 standard drink = 0.6 oz pure alcohol) Very rarely, once every few months PHQ-2 Answer Date Recorded Patient Health Questionnaire-2 Score 0 06/22/2022 Estimated Date of Delivery Comme nts Yes 08/21/2024 Based on Other B asis, PT STATED Sex and Gender Information Value Date Recorded Sex Assigned at Female 04/06/2024 9:01 AM [employer] [employer] Legal Sex Female 9:45 AM CDT Gender Identity Not on file Sexual Orientation Not on file Last Filed Vital Signs Vital Sign Reading Time Taken Comments Blood Pressure 135/68 04/06/2024 9:31 AM [facility] Pulse 80 04/06/2024 9:31 AM [employer] Temperature 36.6 C (97.8 F) 04/06/2024 9:45 AM [facility] Respiratory Rate 18 04/06/2024 9:45 AM [employer] Oxygen Saturation 99% 04/06/2024 9:15 AM [employer] Inhaled Oxygen Concentration - - Weight 126 kg (277 lb 12.8 oz) 06/22/2022 8:06 A M CDT Height 170.2 cm (5' 7) 06/22/2022 8:06 AM CDT Body Mass Index 43.51 06/22/2022 8:06 AM CDT Plan of Treatment Health Maintenance Due Date Last Done Comments Cervical Cancer Screening Pa p Smear (Age 30 to 64) Every 3 Years 1986 Annual Physical 1989 Hepatitis C 2004 DTaP, Tdap and Td Vaccines ( 1 - Tdap) 2005 Hepatitis B Vaccines (1 of 3 - 19+ 3-dose series) 2005 Cervical Cancer Screening Pa p with HPV Testing (Age 30 to 64) Every 5 Years 2016 Cervical Cancer Screening with HPV 2016 COVID-19 Vaccine (2023-2 5 season) 2023 01/20/2021 HPV Vaccines Aged Out No longer eligi ble based on patient's age to complete this topic Meningococcal B Vaccine Aged Out No l onger eligible based on patient's age to complete this topic Meningococcal Vaccine Aged Out No cuate zuhair eligible based on patient's age to complete this topic Pneumococcal Vaccine: Pediat rics (0 to 5 Years) and At-Risk Patients (6 to 49 Years) Aged Out No longer eligi ble based on patient's age to complete this topic RSV Immunization or 60+ Years (No Doses Required) Completed RSV Immunizations Under 20 Months Aged Out No longer eligible based on patient's age to complete this topic Insurance [facility] Care Teams Monitoring Tech Relationship Specialty Start Date End Date Lu Oneal NP [address] [place] [phone] PCP - General NURSE PRACTITIONER 04/06/24
--- OUTSIDE RECORDS SUMMARY | 2024-07-31 13:32 | XMS_ITS | Data Portability ---
Author Organization [facility], Main Office Address [address] [place] [address] Assessment No assessment recorded. Plan of Treatment Reminders Order Date Submit Date Provider Last Modified By Organization Details Last Modified Time Details Appointments None recorded. Lab vitamin B12, serum [address] [facility], [address] [place], [address], 09:15:16 HbA1c (hemoglobin A1c), blood [address] [facility], [address] [place], [address], 4 09:15:15 lipid panel, serum [address] [facility], [address] [place], [address], 4 09:15:15 CMP, serum or plasma [address] Out[facility] Lab, [address] [place], [address], 4 09:15:15 vitamin D, 25-hydroxy, total, serum [address] Out[facility], [address] [place], [address], 4 09:15:16 CBC w/ auto diff 2023 024 [facility] Out[facility] Lab, [address] [place], [address], 4 09:15:16 TSH, serum, reflex free T4 2023 024 [facility] Outpatient Lab, [address] [place], [address], 4 12:32:52 PPD (purified protein derivative) , skin test 2022 023 [facility] [address], [place], [address], 3 12:52:17 Referral None recorded. Procedures None [...] refer to https ://ed ucati on.qu shea [employer]. com/f aq/FA Q165 (This link is being provi ded for infor mateduardo nal/e ducat ional purpo ses only. ) (Note ) This test was devel oped and its therese tical perfo rmanc e fortunato cteri stics have been deter mined by [employer]. It has not been clear ed or appro kvng by the FDA. This assay has been valid ated pursu ant to the CLIA regul ation s and is used for clini madeline purpo ses. Not Available [employer] [facility] [address], [place], [address], 10/26/2020 12:46:07 10/23/1910/26/2020 TESTO STERO NE, FREE (DIAL YSIS) AND TOTAL ,MS testosterone , free 4.3 pg/mL 0.1-6. 4 (Note ) This test was devel oped and its therese tical perfo rmanc e fortunato cteri stics have been deter mined by [employer]. It has not been clear ed or appro kvng by the FDA. This assay has been valid ated pursu ant to the CLIA regul ation s and is used for clini madeline purpo ses. MDF med fusio n [address] [facility] [address] [place] [address] [phone] Ned coronel MD Not Available [email or web address] [facility] [address] [place], [address], 10/26/2020 12:46:07 10/23/1910/26/2020 HEMOG LOBIN A1C hemoglobin A1C 5.2 %_of_ total _HGB <5.7 normal Not Available [facility] [address] [place], [address], 10/26/2020 12:46:06 10/23/1910/26/2020 VITAM IN D,25- OH,TO [...] /MS is recom chelsey d: order code [id number] (katia ents >2yrs ). See Note 1 Note 1 For addit ional infor matio n, pleas e refer to http: //[facility] Tracey gnost ics.c om/fa q/FAQ 199 (This link is being provi ded for infor janes mackay/ tami albrechto ses only. ) Not Available [email or web address] [address] [address] [place], [address], 10/26/2020 12:46:05 10/23/1910/26/2020 T3, FREE T3, free 3.5 pg/mL 2.3-4. 2 normal Not Available [facility] [address] [address] [place], [address], 10/26/2020 12:46:05 10/23/1910/26/2020 VITAM IN B12/F OLATE [...] pg/mL will have sympt oms. Not Available [email or web address] [address] [address] [place], [address], 10/26/2020 12:46:04 10/23/1910/26/2020 VITAM IN B12/F OLATE , SERUM PANEL folate, serum >24.0 NG/mL normal Refer ence Range Low: <3.4 Borde rline : 3.4-5 .4 Kristen l: >5.4 Not Available [email or web address] [address] [address] [place], [address], 10/26/2020 12:46:04 10/23/1910/26/2020 TSH TSH 3.35 mIU/L normal Refer ence Range > or = 20 Years 0.40- 4.50 Pregn myron Range s First trime ster 0.26- 2.66 Secon d trime ster 0.55- 2.73 Third trime ster 0.43- 2.91 Not Available [email or web address] [address] [address] [place], [address], 10/26/2020 12:46:03 10/23/19 21 10/26/2020 T4, FREE T4, free 1.0 NG/dL 0.8-1. 8 normal Not Available [facility] [address], [address], 10/26/2020 12:46:02 10/23/1910/26/2020 T3, TOTAL T3, total 139 NG/dL 76-181 normal Not Available [address], [address], 10/26/2020 12:46:01 10/23/1910/26/2020 PROGE STERO NE progesterone 0.5 NG/mL normal Refer ence Range s Femal e Folli cular Phase < 1.0 Lutea l Phase 2.6-2 1.5 Post menop ausal < 0.5 Pregn myron 1st Trime ster 4.1-3 4.0 2nd Trime ster 24.0- 76.0 3rd Trime ster 52.0- 302.0 Not Available [address], [address], 10/26/2020 12:46:00 10/23/1910/26/2020 INSUL IN insulin 4.0 [...] (dete christine, gluli sine) . Not Available [address], [address], 10/26/2020 12:45:59 10/23/1910/26/2020 CORNELL TIN ferritin 102 NG/mL 16-154 normal Not Available [address], [address], 10/26/2020 12:45:59 10/23/1910/26/2020 DHEA SULFA TE DHEA sulfate 235 mcg/d L 23-266 normal Not Available [address], [address], 10/26/2020 12:45:58 10/23/1910/26/2020 THYRO ID PEROX IDASE ANTIB ODIES thyroid peroxidase antibodies 1 IU/mL <9 normal Not Available [facility] [address], [address], 10/26/2020 12:45:57 10/23/1910/26/2020 CBC (INCL UDES DIFF/ PLT) red blood cell count 4.64 júnior on/uL 3.80-5 .10 normal Not Available [address], [address], 10/26/2020 12:45:56 10/23/1910/26/2020 CBC (INCL UDES DIFF/ PLT) hemoglobin 13.5 g/dL 11.7-1 5.5 normal Not Available [email or web address] [address], [address], 10/26/2020 12:45:56 10/23/1910/26/2020 CBC (INCL UDES DIFF/ PLT) hematocrit 40.4 % 35.0-4 5.0 normal Not Available [email or web address] [address], [address], 10/26/2020 12:45:56 10/23/1910/26/2020 CBC (INCL UDES DIFF/ PLT) MCV 87.1 fL 80.0-1 00.0 normal Not Available [address], [address], 10/26/2020 12:45:56 10/23/1910/26/2020 CBC (INCL UDES DIFF/ PLT) MCH 29.1 pg 27.0-3 3.0 normal Not Available [address], [address], 10/26/2020 12:45:56 10/23/1910/26/2020 CBC (INCL UDES DIFF/ PLT) MCHC 33.4 g/dL 32.0-3 6.0 normal Not Available [address], [address], 10/26/2020 12:45:56 10/23/1910/26/2020 CBC (INCL UDES DIFF/ PLT) RDW 12.6 % 11.0-1 5.0 normal Not Available [address], [address], 10/26/2020 12:45:56 10/23/1910/26/2020 CBC (INCL UDES DIFF/ PLT) platelet count 208 thous and/u L 140-40 0 normal Not Available [address], [address], 10/26/2020 12:45:56 10/23/1910/26/2020 CBC (INCL UDES DIFF/ PLT) MPV 11.8 fL 7.5-12 .5 normal Not Available [address], [address], 10/26/2020 12:45:56 10/23/1910/26/2020 CBC (INCL UDES DIFF/ PLT) absolute neutrophils 4609 cells /uL 1500-7 800 normal Not Available [address], [address], 10/26/2020 12:45:56 10/23/1910/26/2020 CBC (INCL UDES DIFF/ PLT) absolute lymphocytes 2762 cells /uL 850-39 00 normal Not Available [address], [address], 10/26/2020 12:45:56 10/23/1910/26/2020 CBC (INCL UDES DIFF/ PLT) absolute monocytes 551 cells /uL 200-95 0 normal Not Available [address], [address], 10/26/2020 12:45:56 10/23/1910/26/2020 CBC (INCL UDES DIFF/ PLT) absolute eosinophils 122 cells /uL 15-500 normal Not Available [address], [address], 10/26/2020 12:45:56 10/23/1910/26/2020 CBC (INCL UDES DIFF/ PLT) absolute basophils 57 cells /uL 0-200 normal Not Available [address], [address], 10/26/2020 12:45:56 10/23/1910/26/2020 CBC (INCL UDES DIFF/ PLT) neutrophils 56.9 % normal Not Available [address], [address], 10/26/2020 12:45:56 10/23/1910/26/2020 CBC (INCL UDES DIFF/ PLT) lymphocytes 34.1 % normal Not Available [address], [address], 10/26/2020 12:45:56 10/23/1910/26/2020 CBC (INCL UDES DIFF/ PLT) monocytes 6.8 % normal Not Available [address], [address], 10/26/2020 12:45:56 10/23/1910/26/2020 CBC (INCL UDES DIFF/ PLT) eosinophils 1.5 % normal Not Available [address], [address], 10/26/2020 12:45:56 10/23/1910/26/2020 CBC (INCL UDES DIFF/ PLT) basophils 0.7 % normal Not Available [address], [address], 10/26/2020 12:45:56 10/23/1910/26/2020 CBC (INCL UDES DIFF/ PLT) white blood cell count 8.1 thous and/u L 3.8-10 .8 normal Not Available [address], [address], 10/26/2020 12:45:56 10/23/1910/26/2020 COMPR EHENS MACKENZIE METAB OLIC PANEL glucose 99 mg/dL 65-99 normal Fasti ng refer ence inter broderick Not Available [address], [address], 10/26/2020 12:45:55 10/23/1910/26/2020 COMPR EHENS MACKENZIE METAB OLIC PANEL urea nitrogen (BUN) 12 mg/dL 7-25 normal Not Available [address], [address], 10/26/2020 12:45:55 10/23/1910/26/2020 COMPR EHENS MACKENZIE METAB OLIC PANEL creatinine 0.76 mg/dL 0.50-1 .10 normal Not Available [address], [address], 10/26/2020 12:45:55 10/23/19 21 10/26/2020 COMPR EHENS MACKENZIE METAB OLIC PANEL eGFR non-afr. tunisian 102 mL/mi n/1.7 3m2 > or = 60 normal Not Available [address], [address], 10/26/2020 12:45:55 10/23/19 21 10/26/2020 COMPR EHENS MACKENZIE METAB OLIC PANEL eGFR 119 mL/mi n/1.7 3m2 > or = 60 normal Not Available [address], [address], 10/26/2020 12:45:55 10/23/19 21 10/26/2020 COMPR EHENS MACKENZIE METAB OLIC PANEL BUN/creatini ne ratio not applic able (calc ) 6-22 Not Available [address], [address], 10/26/2020 12:45:55 10/23/19 21 10/26/2020 COMPR EHENS MACKENZIE METAB OLIC PANEL sodium 135 mmol/ L 135-14 6 normal Not Available [address], [address], 10/26/2020 12:45:55 10/23/1910/26/2020 COMPR EHENS MACKENZIE METAB OLIC PANEL potassium 4.2 mmol/ L 3.5-5. 3 normal Not Available [address], [address], 10/26/2020 12:45:55 10/23/1910/26/2020 COMPR EHENS MACKENZIE METAB OLIC PANEL chloride 103 mmol/ L 98-110 normal Not Available [address], [address], 10/26/2020 12:45:55 10/23/1910/26/2020 COMPR EHENS MACKENZIE METAB OLIC PANEL carbon dioxide 26 mmol/ L 20-32 normal Not Available [address], [address], 10/26/2020 12:45:55 10/23/19 21 10/26/2020 COMPR EHENS MACKENZIE METAB OLIC PANEL calcium 9.0 mg/dL 8.6-10 .2 normal Not Available [address], [address], 10/26/2020 12:45:55 10/23/1910/26/2020 COMPR EHENS MACKENZIE METAB OLIC PANEL protein, total 6.9 g/dL 6.1-8. 1 normal Not Available [address], [address], 10/26/2020 12:45:55 10/23/1910/26/2020 COMPR EHENS MACKENZIE METAB OLIC PANEL albumin 4.1 g/dL 3.6-5. 1 normal Not Available [address], [address], 10/26/2020 12:45:55 10/23/1910/26/2020 COMPR EHENS MACKENZIE METAB OLIC PANEL globulin 2.8 g/dL_ (calc ) 1.9-3. 7 normal Not Available [address], [address], 10/26/2020 12:45:55 10/23/1910/26/2020 COMPR EHENS MACKENZIE METAB OLIC PANEL albumin/glob ulin ratio 1.5 (calc ) 1.0-2. 5 normal Not Available [address], [address], 10/26/2020 12:45:55 10/23/19 21 10/26/2020 COMPR EHENS MACKENZIE METAB OLIC PANEL bilirubin, total 0.4 mg/dL 0.2-1. 2 normal Not Available [address], [address], 10/26/2020 12:45:55 10/23/1910/26/2020 COMPR EHENS MACKENZIE METAB OLIC PANEL alkaline phosphatase 76 U/L 31-125 normal Not Available [address], [address], 10/26/2020 12:45:55 10/23/1910/26/2020 COMPR EHENS MACKENZIE METAB OLIC PANEL AST 17 U/L 10-30 normal Not Available [address], [address], 10/26/2020 12:45:55 10/23/1910/26/2020 COMPR EHENS MACKENZIE METAB OLIC PANEL ALT 14 U/L 6-29 normal Not Available [address], [address], 10/26/2020 12:45:55 10/23/1910/26/2020 IRON AND TOTAL IRON FAZAL NG CAPAC ITY iron, total 69 mcg/d L 40-190 normal Not Available [address], [address], 10/26/2020 12:45:55 10/23/1910/26/2020 IRON AND TOTAL IRON FAZAL NG CAPAC ITY iron binding capacity 320 mcg/d L_(ca lc) 250-45 0 normal Not Available [address], [address], 10/26/2020 12:45:55 10/23/1910/26/2020 IRON AND TOTAL IRON FAZAL NG CAPAC ITY % saturation 22 %_(ca lc) 16-45 normal Not Available [address], [address], 10/26/2020 12:45:55 10/23/1910/26/2020 MAGNE SIUM magnesium 2.0 mg/dL 1.5-2. 5 normal Not Available [address] [address] [place], [address], 10/26/2020 12:45:53 10/23/1910/26/2020 LIPID PANEL , STAND MALIA cholesterol, total 238 mg/dL <200 high Not Available [facility] [address] [place], [address], 10/26/2020 12:45:52 10/23/1910/26/2020 LIPID PANEL , STAND MALIA HDL cholesterol 32 mg/dL > or = 50 low Not Available [facility] [address], [address], 10/26/2020 12:45:52 10/23/1910/26/2020 LIPID PANEL , STAND MALIA triglyceride s 249 mg/dL <150 high If a non-f astin g speci men was colle cted, consi viktor repea t trigl yceri de testi ng on a fasti ng speci men if clini tari indic ated. Raphael keating et al. J. of Clin. Lipid ol. 2015; 9:129 -169. Not Available [address], [address], 10/26/2020 12:45:52 10/23/1910/26/2020 LIPID PANEL , STAND [...] 9): 2061- 2067 (http ://ed ucati on.[employer]. com/f aq/FA Q164) Not Available [address], [address], 10/26/2020 12:45:52 10/23/19 21 10/26/2020 LIPID PANEL , STAND MALIA chol/HDLC ratio 7.4 (calc ) <5.0 high Not Available [address] [address] [place], [address], 10/26/2020 12:45:52 10/23/1910/26/2020 LIPID PANEL , STAND MALIA non HDL cholesterol 206 mg/dL _(madeline c) <130 high For patie nts with diabe faith plus 1 major ASCVD risk facto r, treat ing to a non-H DL-C goal of <100 mg/dL (LDL- C of <70 mg/dL ) is consi dered a zay mejia c optio n. Not Available [address] [address] [place], [address], 10/26/2020 12:45:52 12/12/1912/12/2020 HEPAT IC FUNCT ION PANEL protein, total 6.7 g/dL 6.1-8. 1 normal Not Available [address], [address], 12/12/2020 06:27:51 12/12/1912/12/2020 HEPAT IC FUNCT ION PANEL albumin 4.3 g/dL 3.6-5. 1 normal Not Available [email or web address] [address], [address], 12/12/2020 06:27:51 12/12/1912/12/2020 HEPAT IC FUNCT ION PANEL globulin 2.4 g/dL_ (calc ) 1.9-3. 7 normal Not Available [address], [address], 12/12/2020 06:27:51 12/12/19 21 12/12/2020 HEPAT IC FUNCT ION PANEL albumin/glob ulin ratio 1.8 (calc ) 1.0-2. 5 normal Not Available [address], [address], 12/12/2020 06:27:51 12/12/1912/12/2020 HEPAT IC FUNCT ION PANEL bilirubin, total 0.4 mg/dL 0.2-1. 2 normal Not Available [address], [address], 12/12/2020 06:27:51 12/12/19 21 12/12/2020 HEPAT IC FUNCT ION PANEL bilirubin, direct 0.1 mg/dL < or = 0.2 normal Not Available [address], [address], 12/12/2020 06:27:51 12/12/19 21 12/12/2020 HEPAT IC FUNCT ION PANEL bilirubin, indirect 0.3 mg/dL _(madeline c) 0.2-1. 2 normal Not Available [address], [address], 12/12/2020 06:27:51 12/12/19 21 12/12/2020 HEPAT IC FUNCT ION PANEL alkaline phosphatase 95 U/L 31-125 normal Not Available [address] [address] [place], [address], 12/12/2020 06:27:51 12/12/19 21 12/12/2020 HEPAT IC FUNCT ION PANEL AST 13 U/L 10-30 normal Not Available [address], [address], 12/12/2020 06:27:51 12/12/19 21 12/12/2020 HEPAT IC FUNCT ION PANEL ALT 14 U/L 6-29 normal Not Available [facility] [address] [place], [address], 12/12/2020 06:27:51 12/12/1912/12/2020 LIPID PANEL , STAND MALIA cholesterol, total 180 mg/dL <200 normal Not Available [facility] [address] [place], [address], 12/12/2020 06:27:50 12/12/1912/12/2020 LIPID PANEL , STAND MALIA HDL cholesterol 31 mg/dL > or = 50 low Not Available [facility] [address] [address] [place], [address], 12/12/2020 06:27:50 12/12/1912/12/2020 LIPID PANEL , STAND MALIA triglyceride s 186 mg/dL <150 high Not Available [facility] [address] [address] [place], [address], 12/12/2020 06:27:50 12/12/1912/12/2020 LIPID PANEL , STAND [...] com/f aq/FA Q164) Not Available [facility] [address] [place], [address], 12/12/2020 06:27:50 12/12/1912/12/2020 LIPID PANEL , STAND MALIA chol/HDLC ratio 5.8 (calc ) <5.0 high Not Available [email or web address] [address], [address], 12/12/2020 06:27:50 12/12/19 21 12/12/2020 LIPID PANEL , STAND MALIA non HDL cholesterol 149 mg/dL _(madeline c) <130 high For patie nts with diabe faith plus 1 major ASCVD risk facto r, treat ing to a non-H DL-C goal of <100 mg/dL (LDL- C of <70 mg/dL ) is xenia gutierrez optio n. Not Available [email or web address] [address] [address] [place], [address], 12/12/2020 06:27:50 11/18/19 22 11/21/2021 VITAM IN B12/F OLATE , SERUM PANEL vitamin B12 556 pg/mL 200-11 00 normal Not Available [email or web address] [address] [address] [place], [address], 11/21/2021 18:19:39 11/18/1911/21/2021 VITAM IN B12/F OLATE , SERUM PANEL folate, serum 16.5 NG/mL normal Refer ence Range Low: <3.4 Borde rline : 3.4-5 .4 Kristen l: >5.4 Not Available [email or web address] [address], [address], 11/21/2021 18:19:39 11/18/19 22 11/21/2021 INSUL IN [...] (dete christine, gluli sine) . Not Available [address], [address], 11/21/2021 18:19:38 11/18/19 22 11/21/2021 HEPAT IC FUNCT ION PANEL protein, total 6.8 g/dL 6.1-8. 1 normal Not Available [address], [address], 11/21/2021 18:19:37 11/18/19 22 11/21/2021 HEPAT IC FUNCT ION PANEL albumin 4.0 g/dL 3.6-5. 1 normal Not Available [address], [address], 11/21/2021 18:19:37 11/18/19 22 11/21/2021 HEPAT IC FUNCT ION PANEL globulin 2.8 g/dL_ (calc ) 1.9-3. 7 normal Not Available [address], [address], 11/21/2021 18:19:37 11/18/19 22 11/21/2021 HEPAT IC FUNCT ION PANEL albumin/glob ulin ratio 1.4 (calc ) 1.0-2. 5 normal Not Available [address], [address], 11/21/2021 18:19:37 11/18/19 22 11/21/2021 HEPAT IC FUNCT ION PANEL bilirubin, total 0.5 mg/dL 0.2-1. 2 normal Not Available [address], [address], 11/21/2021 18:19:37 11/18/19 22 11/21/2021 HEPAT IC FUNCT ION PANEL bilirubin, direct 0.1 mg/dL < or = 0.2 normal Not Available [address], [address], 11/21/2021 18:19:37 11/18/19 22 11/21/2021 HEPAT IC FUNCT ION PANEL bilirubin, indirect 0.4 mg/dL _(madeline c) 0.2-1. 2 normal Not Available [address], [address], 11/21/2021 18:19:37 11/18/19 22 11/21/2021 HEPAT IC FUNCT ION PANEL alkaline phosphatase 77 U/L 31-125 normal Not Available [address], [address], 11/21/2021 18:19:37 11/18/19 22 11/21/2021 HEPAT IC FUNCT ION PANEL AST 15 U/L 10-30 normal Not Available [address], [address], 11/21/2021 18:19:37 11/18/19 22 11/21/2021 HEPAT IC FUNCT ION PANEL ALT 15 U/L 6-29 normal Not Available [address], [address], 11/21/2021 18:19:37 11/18/19 22 11/21/2021 BASIC METAB OLIC PANEL glucose 81 mg/dL 65-99 normal Fasti ng refer ence inter broderick Not Available [address], [address], 11/21/2021 18:19:37 11/18/19 22 11/21/2021 BASIC METAB OLIC PANEL urea nitrogen (BUN) 10 mg/dL 7-25 normal Not Available [address], [address], 11/21/2021 18:19:37 11/18/19 22 11/21/2021 BASIC METAB OLIC PANEL creatinine 0.75 mg/dL 0.50-0 .97 normal Not Available [address], [address], 11/21/2021 18:19:37 11/18/19 22 11/21/2021 BASIC METAB [...] kdoqi /gfr% 5Fcal culat or Not Available [address] [address] [place], [address], 11/21/2021 18:19:37 11/18/1911/21/2021 BASIC METAB OLIC PANEL BUN/creatini ne ratio not applic able (calc ) 6-22 Not Available [address] [address] [place], [address], 11/21/2021 18:19:37 11/18/19 22 11/21/2021 BASIC METAB OLIC PANEL sodium 137 mmol/ L 135-14 6 normal Not Available [address], [address], 11/21/2021 18:19:37 11/18/19 22 11/21/2021 BASIC METAB OLIC PANEL potassium 4.5 mmol/ L 3.5-5. 3 normal Not Available [address], [address], 11/21/2021 18:19:37 11/18/19 22 11/21/2021 BASIC METAB OLIC PANEL chloride 104 mmol/ L 98-110 normal Not Available [address], [address], 11/21/2021 18:19:37 11/18/19 11/21/2021 BASIC METAB OLIC PANEL carbon dioxide 28 mmol/ L 20-32 normal Not Available [address], [address], 11/21/2021 18:19:37 11/18/19 22 11/21/2021 BASIC METAB OLIC PANEL calcium 8.9 mg/dL 8.6-10 .2 normal Not Available [address], [address], 11/21/2021 18:19:37 11/18/19 22 11/21/2021 CARDI O IQ(R) LIPID PANEL cholesterol, total 181 mg/dL <200 Not Available [address], [address], 11/21/2021 18:19:36 11/18/19 22 11/21/2021 CARDI O IQ(R) LIPID PANEL HDL cholesterol 34 mg/dL >49 low Not Available [address], [address], 11/21/2021 18:19:36 11/18/19 22 11/21/2021 CARDI O IQ(R) LIPID PANEL triglyceride s 178 mg/dL <150 high Not Available [address], [address], 11/21/2021 18:19:36 11/18/19 22 11/21/2021 CARDI O [...] 310(1 9): 2060- 2067 (http ://ed ucati on.[employer]br[employer].com. com/f aq/FA Q164) LDL-C is now calcu lated using the Deb n-Hop kins calcu darshan n, which is a valid ated novel metho d provi ding trudy r accur acy than the Fried dominic equat ion in the estim ation of LDL-C . Deb GALLAGHER et al. LETTY. 2013; 310(1 9): 2060- 2067 (http ://ed ati on.[employer]. com/f aq/FA Q164) Not Available [employer] [address], [address], 11/21/2021 18:19:36 11/18/19 22 11/21/2021 CARDI O IQ(R) LIPID PANEL chol/HDLC ratio 5.3 calc <3.6 high Not Available [employer] [address], [address], 11/21/2021 18:19:36 11/18/19 22 11/21/2021 CARDI O [...] thera peuti c optio n. Not Available [employer] [facility] [address] [place], [address], 11/21/2021 18:19:36 11/23/19 22 11/23/2021 GLUCO SE KASSIDY ANCE TEST, 3 SPECI MENS, (75G) fasting specimen 70 mg/dL 65-99 normal Not Available [address], [address], 11/23/2021 09:36:05 11/23/19 22 11/23/2021 GLUCO SE KASSIDY ANCE TEST, 3 SPECI MENS, (75G) 1 hour specimen 139 mg/dL normal Not Available [address], [address], 11/23/2021 09:36:05 11/23/19 22 11/23/2021 GLUCO SE KASSIDY ANCE TEST, 3 SPECI MENS, (75G) 2 hour specimen 83 mg/dL <140 normal Not Available [address], [address], 11/23/2021 09:36:05 11/23/19 22 11/23/2021 GLUCO SE [...] on a subse quent day. Not Available [address], [address], 11/23/2021 09:36:05 12/24/19 22 12/24/2021 LIPID PANEL , STAND MALIA cholesterol, total 182 mg/dL <200 normal Not Available [address], [address], 12/24/2021 02:10:18 12/24/19 22 12/24/2021 LIPID PANEL , STAND MALIA HDL cholesterol 34 mg/dL > or = 50 low Not Available [facility] [address] [place], [address], 12/24/2021 02:10:18 12/24/19 22 12/24/2021 LIPID PANEL , STAND MALIA triglyceride s 276 mg/dL <150 high If a non-f astin g speci men was colle cted, consi viktor repea t trigl yceri de testi ng on a fasti ng speci men if clini tari indic ated. Raphael keating et al. J. of Clin. Lipid ol. 2015; 9:129 -169. Not Available [email or web address] [address] [address] [place], [address], 12/24/2021 02:10:18 12/24/19 22 12/24/2021 LIPID PANEL [...] 2061- 2068 (http ://ed ucati on.Qu estDi Shoopis. com/f aq/FA Q164) Not Available [facility] [address] [place], [address], 12/24/2021 02:10:18 12/24/19 22 12/24/2021 LIPID PANEL , STAND MALIA chol/HDLC ratio 5.4 (calc ) <5.0 high Not Available [email or web address] [address] [place] [address] [place], [address], 12/24/2021 02:10:18 12/24/19 22 12/24/2021 LIPID PANEL , STAND MALIA non HDL cholesterol 148 mg/dL _(madeline c) <130 high For patie nts with diabe faith plus 1 major ASCVD risk facto r, treat ing to a non-H DL-C goal of <100 mg/dL (LDL- C of <70 mg/dL ) is consi lakeishad a thera jackie c optio n. Not Available [email or web address] [facility] [address] [address] [place], [address], 12/24/2021 02:10:18 02/15/19 23 02/16/2022 VITAM IN B12/F OLATE , SERUM PANEL vitamin B12 718 pg/mL 200-11 00 normal Not Available [email or web address] [place] [address] [place], [address], 02/16/2022 03:50:31 02/15/19 23 02/16/2022 VITAM IN B12/F OLATE , SERUM PANEL folate, serum 16.4 NG/mL normal Refer ence Range Low: <3.4 Borde rline : 3.4-5 .4 Kristen l: >5.4 Not Available [email or web address] [address] [place] [address] [place], [address], 02/16/2022 03:50:31 02/15/19 23 02/16/2022 LIPID PANEL , STAND MALIA cholesterol, total 116 mg/dL <200 normal Not Available [email or web address] [facility] [address] [address] [place], [address], 02/16/2022 03:50:30 02/15/19 23 02/16/2022 LIPID PANEL , STAND MALIA HDL cholesterol 32 mg/dL > or = 50 low Not Available [email or web address] [address] [address] [place], [address], 02/16/2022 03:50:30 02/15/19 23 02/16/2022 LIPID PANEL , STAND MALIA triglyceride s 147 mg/dL <150 normal Not Available [address], [address], 02/16/2022 03:50:30 02/15/19 23 02/16/2022 LIPID PANEL [...] 9): 2061- 2068 (http ://ed ucati on.Qu serenaWell Mansion [employer]. Cashflowtuna.com/f aq/FA Q164) Not Available [email or web address] [address] [address] [place], [address], 02/16/2022 03:50:30 02/15/19 23 02/16/2022 LIPID PANEL , STAND MALIA chol/HDLC ratio 3.6 (calc ) <5.0 normal Not Available [email or web address] [address] [address] [place], [address], 02/16/2022 03:50:30 02/15/19 23 02/16/2022 LIPID PANEL , STAND MALIA non HDL cholesterol 84 mg/dL _(madeline c) <130 normal For patie nts with diabe faith plus 1 major ASCVD risk facto r, treat ing to a non-H DL-C goal of <100 mg/dL (LDL- C of <70 mg/dL ) is consi dered a thera peuti c optio n. Not Available [email or web address] [facility] [address] [place], [address], 02/16/2022 03:50:30 05/05/1905/05/2022 LIPID PANEL , STAND MALIA cholesterol, total 128 mg/dL <200 normal Not Available [address], [address], 2022 02:58:47 05/05/1905/05/2022 LIPID PANEL , STAND MALIA HDL cholesterol 34 mg/dL > or = 50 low Not Available [address], [address], 2022 02:58:47 05/05/1905/05/2022 LIPID PANEL , STAND MALIA triglyceride s 232 mg/dL <150 high If a non-f astin g speci men was colle cted, consi viktor repea t trigl yceri de testi ng on a fasti ng speci men if clini tari indic ated. Raphael keating et al. J. of Clin. Lipid ol. 2015; 9:129 -169. Not Available [address], [address], 2022 02:58:47 05/05/1905/05/2022 LIPID PANEL , STAND [...] which is a valid ated novel diamond colmenarse than the Fried dominic equat ion in the estim ation of LDL-C . Deb wall SS et al. LETTY. 2013; 310(1 9): 2061- 2068 (http ://ed ucati on.Qu estDi Shoopis. com/f aq/FA Q164) Not Available [address] [place], [address], 2022 02:58:47 05/05/1905/05/2022 LIPID PANEL , STAND MALIA chol/HDLC ratio 3.8 (calc ) <5.0 normal Not Available [facility] [address] [address] [place], [address], 2022 02:58:47 05/05/19 23 2022 LIPID PANEL , STAND MALIA non HDL cholesterol 94 mg/dL _(madeline c) <130 normal For patie nts with diabe faith plus 1 major ASCVD risk facto r, treat ing to a non-H DL-C goal of <100 mg/dL (LDL- C of <70 mg/dL ) is consi james collazo peutmike c optio n. Not Available [address] [address] [place], [address], 2022 02:58:47 08/04/19 23 08/03/2022 PPD (amy fied prote in deriv ative ), skin test TB Not Available [address], [place], [address], 08/01/2022 08:37:25 08/04/19 23 08/03/2022 PPD (amy fied prote in deriv ative ), skin test TB negati ve Not Available [address], [place], [address], 08/01/2022 08:37:25 01/20/20 23 01/25/2023 LIPID PANEL , STAND MALIA cholesterol, total 256 mg/dL <200 high Not Available [facility] [address] [address] [place], [address], 01/25/2023 21:45:07 01/20/20 23 01/25/2023 LIPID PANEL , STAND MALIA HDL cholesterol 43 mg/dL > or = 50 low Not Available [facility] [address] [place], [address], 01/25/2023 21:45:07 01/20/20 23 01/25/2023 LIPID PANEL , STAND MALIA triglyceride s 142 mg/dL <150 normal Not Available [facility] [address] [place], [address], 01/25/2023 21:45:07 01/20/20 23 01/25/2023 LIPID PANEL [...] 310(1 9): 2061- 2068 (http ://ed ucati on.[employer]. Cashflowtuna.com/f aq/FA Q164) Not Available [facility] [address] [address], [place], [address], 01/25/2023 21:45:07 01/20/20 23 01/25/2023 LIPID PANEL , STAND MALIA chol/HDLC ratio 6.0 (calc ) <5.0 high Not Available [facility] [address] [place], [address], 01/25/2023 21:45:07 01/20/20 23 01/25/2023 LIPID PANEL , STAND MALIA non HDL cholesterol 213 mg/dL _(madeline c) <130 high For patie nts with diabe faith plus 1 major ASCVD risk facto r, treat ing to a non-H DL-C goal of <100 mg/dL (LDL- C of <70 mg/dL ) is jamii james gutierrez optio n. Not Available [address] [address] [place], [address], 01/25/2023 21:45:07 01/20/20 23 01/25/2023 COMPR EHENS MACKENZIE METAB OLIC PANEL glucose 95 mg/dL 65-99 normal Fasti ng refer ence inter broderick Not Available [address], [address], 01/25/2023 21:45:09 01/20/20 23 01/25/2023 COMPR EHENS MACKENZIE METAB OLIC PANEL urea nitrogen (BUN) 14 mg/dL 7-25 normal Not Available [address], [address], 01/25/2023 21:45:09 01/20/20 23 01/25/2023 COMPR EHENS MACKENZIE METAB OLIC PANEL creatinine 0.68 mg/dL 0.50-0 .97 normal Not Available [address], [address], 01/25/2023 21:45:09 01/20/20 23 01/25/2023 COMPR EHENS MACKENZIE METAB OLIC PANEL eGFR 116 mL/mi n/1.7 3m2 > or = 60 normal Not Available [address], [address], 01/25/2023 21:45:09 01/20/20 23 01/25/2023 COMPR EHENS MACKENZIE METAB OLIC PANEL BUN/creatini ne ratio SEE NOTE: (calc ) 6-22 Not Repor maryanne: BUN and Creat inine are withi n refer ence range . Not Available [address] [place], [address], 01/25/2023 21:45:09 01/20/20 23 01/25/2023 COMPR EHENS MACKENZIE METAB OLIC PANEL sodium 138 mmol/ L 135-14 6 normal Not Available [address], [address], 01/25/2023 21:45:09 01/20/20 23 01/25/2023 COMPR EHENS MACKENZIE METAB OLIC PANEL potassium 4.5 mmol/ L 3.5-5. 3 normal Not Available [address], [address], 01/25/2023 21:45:09 01/20/20 23 01/25/2023 COMPR EHENS MACKENZIE METAB OLIC PANEL chloride 107 mmol/ L 98-110 normal Not Available [address], [address], 01/25/2023 21:45:09 01/20/20 23 01/25/2023 COMPR EHENS MACKENZIE METAB OLIC PANEL carbon dioxide 22 mmol/ L 20-32 normal Not Available [address], [address], 01/25/2023 21:45:09 01/20/20 23 01/25/2023 COMPR EHENS MACKENZIE METAB OLIC PANEL calcium 8.8 mg/dL 8.6-10 .2 normal Not Available [address], [address], 01/25/2023 21:45:09 01/20/20 23 01/25/2023 COMPR EHENS MACKENZIE METAB OLIC PANEL protein, total 6.9 g/dL 6.1-8. 1 normal Not Available [address], [address], 01/25/2023 21:45:09 01/20/20 23 01/25/2023 COMPR EHENS MACKENZIE METAB OLIC PANEL albumin 4.0 g/dL 3.6-5. 1 normal Not Available [address], [address], 01/25/2023 21:45:09 01/20/20 23 01/25/2023 COMPR EHENS MACKENZIE METAB OLIC PANEL globulin 2.9 g/dL_ (calc ) 1.9-3. 7 normal Not Available [address], [address], 01/25/2023 21:45:09 01/20/20 23 01/25/2023 COMPR EHENS MACKENZIE METAB OLIC PANEL albumin/glob ulin ratio 1.4 (calc ) 1.0-2. 5 normal Not Available [address], [address], 01/25/2023 21:45:09 01/20/20 23 01/25/2023 COMPR EHENS MACKENZIE METAB OLIC PANEL bilirubin, total 0.3 mg/dL 0.2-1. 2 normal Not Available [address], [address], 01/25/2023 21:45:09 01/20/20 23 01/25/2023 COMPR EHENS MACKENZIE METAB OLIC PANEL alkaline phosphatase 61 U/L 31-125 normal Not Available [address], [address], 01/25/2023 21:45:09 01/20/20 23 01/25/2023 COMPR EHENS MACKENZIE METAB OLIC PANEL AST 13 U/L 10-30 normal Not Available [address], [address], 01/25/2023 21:45:09 01/20/20 23 01/25/2023 COMPR EHENS MACKENZIE METAB OLIC PANEL ALT 13 U/L 6-29 normal Not Available [address], [address], 01/25/2023 21:45:09 01/20/20 23 01/25/2023 ESTRO GENS, TOTAL , IA estrogens, total, ia 625 pg/mL Refer ence Range s for Total Estro gen: Folli cular Phase : 51-60 1 Lutea l Phase : 87-11 94 Postm enopa usal: < or = 214 Not Available [address], [address], 01/25/2023 21:45:10 01/20/20 23 01/25/2023 CBC (H/H, RBC, INDIC ES, WBC, PLT) white blood cell count 8.4 thous and/u L 3.8-10 .8 normal Not Available [address], [address], 01/25/2023 21:45:10 01/20/20 23 01/25/2023 CBC (H/H, RBC, INDIC ES, WBC, PLT) red blood cell count 4.53 júnior on/uL 3.80-5 .10 normal Not Available [address], [address], 01/25/2023 21:45:10 01/20/20 23 01/25/2023 CBC (H/H, RBC, INDIC ES, WBC, PLT) hemoglobin 13.6 g/dL 11.7-1 5.5 normal Not Available [address], [address], 01/25/2023 21:45:10 01/20/20 23 01/25/2023 CBC (H/H, RBC, INDIC ES, WBC, PLT) hematocrit 40.3 % 35.0-4 5.0 normal Not Available [address], [address], 01/25/2023 21:45:10 01/20/20 23 01/25/2023 CBC (H/H, RBC, INDIC ES, WBC, PLT) MCV 89.0 fL 80.0-1 00.0 normal Not Available [email or web address] [address], [address], 01/25/2023 21:45:10 01/20/20 23 01/25/2023 CBC (H/H, RBC, INDIC ES, WBC, PLT) MCH 30.0 pg 27.0-3 3.0 normal Not Available [address], [address], 01/25/2023 21:45:10 01/20/20 23 01/25/2023 CBC (H/H, RBC, INDIC ES, WBC, PLT) MCHC 33.7 g/dL 32.0-3 6.0 normal Not Available [address], [address], 01/25/2023 21:45:10 01/20/20 23 01/25/2023 CBC (H/H, RBC, INDIC ES, WBC, PLT) RDW 12.6 % 11.0-1 5.0 normal Not Available [address], [address], 01/25/2023 21:45:10 01/20/20 23 01/25/2023 CBC (H/H, RBC, INDIC ES, WBC, PLT) platelet count 231 thous and/u L 140-40 0 normal Not Available [address], [address], 01/25/2023 21:45:10 01/20/20 23 01/25/2023 CBC (H/H, RBC, INDIC ES, WBC, PLT) MPV 11.9 fL 7.5-12 .5 normal Not Available [address], [address], 01/25/2023 21:45:10 01/20/20 23 01/25/2023 PROGE STERO NE progesterone <0.5 NG/mL normal Refer ence Range s Femal e Folli cular Phase < 1.0 Lutea l Phase 2.6-2 1.5 Post menop ausal < 0.5 Pregn myron 1st Trime ster 4.1-3 4.0 2nd Trime ster 24.0- 76.0 3rd Trime ster 52.0- 302.0 Not Available [email or web address] [address], [address], 01/25/2023 21:45:11 01/20/20 23 01/25/2023 VITAM IN [...] pg/mL will have sympt oms. Not Available [email or web address] [address], [address], 01/25/2023 21:45:12 01/20/20 23 01/25/2023 VITAM IN B12/F OLATE , SERUM PANEL folate, serum >24.0 NG/mL normal Refer ence Range Low: <3.4 Borde rline : 3.4-5 .4 Kristen l: >5.4 Not Available [email or web address] [address], [address], 01/25/2023 21:45:12 01/20/20 23 01/25/2023 TSH W/REF DINORA TO FT4 TSH w/reflex to FT4 2.63 mIU/L normal Refer ence Range > or = 20 Years 0.40- 4.50 Pregn myron Range s First trime ster 0.26- 2.66 Secon d trime ster 0.55- 2.73 Third trime ster 0.43- 2.91 Not Available [email or web address] [address] [address] [place], [address], 01/25/2023 21:45:13 01/20/20 23 01/25/2023 VITAM IN [...] /MS is recom chelsey d: order code 62188 (katia ents >2yrs ). See Note 1 Note 1 For addit ional infor tapan gill refer to http: //[facility] larry Martinez stDia gnost ics.c om/fa q/FAQ 199 (This link is being provi ded for infor janes mackay/ educjustino min purpo ses only. ) Not Available [facility] [employer] [address] [address] [place], [address], 01/25/2023 21:45:13 01/20/2001/25/2023 HEMOG LOBIN A1C hemoglobin [...] Care in Diabe faith(A DA). Not Available [email or web address] [facility] [address] [address], [place], [address], 01/25/2023 21:45:14 01/26/20 21 12/23/2020 elect romyo gram + nerve condu ction study No observ ation record ed. [id number] [facility] (Medical Records) [address], [place], [address], 04/13/2022 09:21:47 06/23/19 23 06/22/2022 XR, foot No observ ation record ed. [email or web address] [facility] [address] [place], [address], 06/22/2022 10:50:18 Result Notes None recorded. Problems Name Problem SNOMED Code Status Onset Date Resolution Date Notes Provider Name and Address Organization Details Recorded Time Polycysti c ovary syndrome 428547426 Active 2020 Not Available [facility] 3 09:17:19 Pain in thoracic spine 484960654 Completed Not Available [facility] 3 09:17:20 Low back pain 240627860 Completed Not Available [facility] 3 09:17:20 Ulnar neuropath y 818662490 Active 2020 Not Available [facility] 3 09:17:20 Obesity 527480187 Active 2020 Not Available [facility] 3 09:17:20 Anxiety 65680783 Active 2020 Not Available [facility] 3 09:17:20 Hyperlipi demia 55224915 Active 2020 Not Available [facility] 3 09:17:20 Vitamin B12 deficienc y (non anemic) 63659234 Active 2020 Not Available [facility] 3 09:17:20 Pain in left foot 44763003625 9107 Active 2022 AMY Hassan [address] [facility], [address] [address], [place], [address] , [facility] [employer] [facility] [employer] [facility] 3 16:40:55 Bacterial conjuncti vitis 674785375 Active 2022 Jessie Cat MD [address] [address], [place], [address] , [facility] [employer] [facility] [employer] [facility] 3 11:18:33 Fatigue 24222635 Active 2022 AMY Hassan [address] [address], [place], [address] , [facility] [employer] [facility] [employer] [facility] 3 10:12:58 Problem Notes None recorded. Procedures Surgical History Date Name Laterality Status Provider Name and Address Organization Details Recorded Time Lasik completed Not Available [facility] 02/2022 09:12:58 Imaging Results None recorded. Procedure [...] Updated DateTime 4 170.18 cm 43.4 kg/m2 563658. 09 g 97.4 [degF] 73 /min 98 % 98 % 120 mm[Hg] 84 mm[Hg] Mahogany Fagan RN [facility] [employer] 4 08:07:18 Date Recorded Body height Body mass index (BMI) Body weight Body temperature Oxygen saturation Oxygen saturation in Arterial blood by Pulse oximetry Heart rate Systolic blood pressure Diastolic blood pressure Provider Name and Address Organization Details Last Updated DateTime 3 170.18 cm 41.5 kg/m2 044909. 98 g 96.8 [degF] 97 % 97 % 69 /min 132 mm[Hg] 76 mm[Hg] Ludivina Lim CMA [place] [employer] [facility] [employer] 3 11:08:32 Date Recorded Body mass index (BMI) Body height Oxygen saturation Oxygen saturation in Arterial blood by Pulse oximetry Heart rate Body temperature Body weight Systolic blood pressure Diastolic blood pressure Provider Name and Address Organization Details Last Updated DateTime 1 44.8 kg/m2 170.18 cm 97 % 97 % 65 /min 96.6 [degF] 032509. 42 g 120 mm[Hg] 78 mm[Hg] Not Available [facility] 3 09:14:52 Date Recorded Body height Body mass index (BMI) Body weight Body temperature Heart rate Respiratory rate Oxygen saturation Oxygen saturation in Arterial blood by Pulse oximetry Systolic blood pressure Diastolic blood pressure Provider Name and Address Organization Details Last Updated DateTime 4 170.18 cm 45.1 kg/m2 945698. 95 g 97.3 [degF] 74 /min 20 /min 98 % 98 % 150 mm[Hg] 100 mm[Hg] Kelly Sargent RN [place] [facility] [employer] [facility] 4 08:34:23 Date Recorded Body mass index (BMI) Body height Oxygen saturation Oxygen saturation in Arterial blood by Pulse oximetry Heart rate Body temperature Body weight Systolic blood pressure Diastolic blood pressure Provider Name and Address Organization Details Last Updated DateTime 2 41.8 kg/m2 170.18 cm 98 % 98 % 68 /min 97.2 [degF] 701914. 16 g 126 mm[Hg] 84 mm[Hg] Not Available [facility] 3 09:14:52 Social History Question Answer Notes LastModified by Organizat ion Details LastModified Time Tobacco Smoking Status Never Smoker Not Available [facility] 04/13/2022 09:12:44 What Is Your Level Of Caffeine Consumption? Occasional [id number] Information not available 04/13/2022 In The 14 [...] Type Of Diet Are You Following? REGULAR [id number] Information not available 04/13/2022 What Is The Highest Grade Or Level Of School You Have Completed Or The Highest Degree You Have Received? [id number] Information not available 04/13/2022 Have There Been Any Changes To Your Family Or Social Situation? Yes Information no t available 01/19/2024 Do You Use Insect Repellent Routinely? Yes Information not available 01/19/2024 Where Do You Live? [facility] Information not available 01/19/2024 Do You Have Any Pets? No Information not available 01/19/2024 What Is Your Relationship Status? [id number] Information not available 04/13/2022 Do You Use [...] 01/19/2024 Are You Currently In School? Yes [id number] Information not available 04/13/2022 Sex: Female Functional Status Question Answer Note LastModified by Organizat ion Details LastModified Time Do you use any illicit or recreational drugs? No [id number] Information not available 04/13/2022 Do you or have you ever used any other forms of tobacco or nicotine? No [id number] 26 Information not available 04/13/2022 What is your level of alcohol consumption? None Information not available 01/19/2024 What is your occupation? teacher [id number] 26 Information not available 04/13/2022 What is your exercise level? Moderate [id number] 26 Information not available 04/13/2022 Mental Status Question Answer Note LastModified by Organization D etails LastModified Time Do you feel stressed (tense, restless, nervous, or anxious, or unable to sleep at night)? [id number] Information not available 01/19/2024 Family History Relationship Description Onset Age of this Age Resolved Age Notes LastModified by Organization Details LastModified Time Father Hypercholest cherieolemia [id number] Not available 04/13/2022 09:12:59 Unspecified Relation Diabetes mellitus [id number] Not available 04/13/2022 09:12:59 Medical History Condition Response HYPERTENSION Y HIGH CHOLESTEROL / HYPERLIPIDEMIA Y Gynecological History Statement/Question Response Date of LMP Obstetrics History GPAL:G 0 P 0 0 0 0 Past Encounters Encounter ID Performer Location Encounter Start Date Encounter Closed Date Diagnosis/Indication Diagnosis SNOMED-CT Code Diagnosis ICD10 Code Diagnosis Note [id number] Lane Tavares MD [facility] [place] [address] [facility] [address] , [place] [address] 10/22/2020 00:00:00 10/22/2020 10:13:[id number] Tavares MD [facility] [place] [address] [facility] [address] , [place] [address] 10/29/2020 00:00:00 10/29/2020 13:31:37 [id number] AMY Hassan [facility] [place] [address] [place] [address] 01/31/2022 00:00:00 01/31/2022 09:15:31 [id number] Jessie Cat MD [facility] [place] [address] [place] [address] 08/01/2022 10:57:43 08/01/2022 11:23:18 Tuberculosis screening 177144756 Z11.1 Hyperlipidemia 68866194 E78.5 (05/04/22) TC 128, HDL 34, Tri 232, LDL 65Continue rosuvastat in 20mg daily. Fit for work 036842401 Z 78.9 Up to date on routine labs. 12/17/21- A1C 5.310/07/04 - BMP, hepatic panel, B12/folate Covid vaccines- recommende d continue boostersFl u vaccine- 11/2021Tet anus vaccine- 2017 Pap- 11/2021, wnlColonos copy- recommende d age 46Mammogra m- recommende d age 41 Recommende d routine eye exams and dental cleanings. [id number] AUDRA Lujan [facility] Primary Care [facility] [address] [facility] [address] [address] [place] [address] 03/21/2023 08:01:18 03/21/2023 10:57:05 Hyperlipidemia 09781395 E78.5 -currently on fish oil-discus sed with her OB to stop taking rosuvastat in and discuss with primary-LD L currently 185, encouraged to manage with diet and exercise-p ossibly restarting rosuvastat in after she has the baby [id number] Margarito Campbell MD [facility] [place] [address] [place] [address] 01/19/2024 08:21:34 01/19/2024 09:01:18 Adult health examination 595985364 Z00.00 Patient overall healthy, currently 9 weeks , history of significan t miscarriag es.Health maintenanc e reviewedPa tient questions answered Hyperlipidemia 65031057 E78.5 Currently managed with diet and exercise, not taking medication s due to fertility treatments Would like to restart meds after delivery Polycystic ovary syndrome 428980792 E28.2 Worsening symptoms. Previously managed with Ozempic, would like to do GLP1 again after delivery Vitamin B1 2 deficiency (non anemic) 73348632 E53.8 Fatigue 81735177 R53.83 Health Concerns Section Related Observation LastModified by Organization Detai ls LastModified Time None Recorded Concern Status LastModified by Organization Details LastModified Time None Recorded Advance Directives Directive None Recorded Payers Insurance Date Sequence Insurance Name Policy Number Policy Neumann Covered Member ID Neumann Member ID Guarantor Name 05/30/2024 1 [place] [id number] Carri S Marcell [id number] Carri S Marcell 05/29/2024 1 [employer] (POS II) [id number] Carribrittani Wheeler [id number] Carri S Marcell Notes Date Note Type Note Provider Name and Address Organization Details Recorded Time 08/01/2022 text/html Pt. here needing physical form completed for work and TB test. She had last physical 01/31/22. AMY Hassan [address] [facility] [address], [place], [address], [employer] [facility] 08/01/2022 11:58:03 03/21/2023 text/html Pt is here to ta aissatou about hyperlipidemia GIO Lujan-C [address], [place], [address], [facility] [employer] [facility] 03/21/2023 14:07:38 01/19/2024 text/html Carri Wheeler is [...] with pregnancyMammogram: not indicatedWWE: 02/2023 Jerica coronado, [facility] [employer] [facility] 01/22/2024 12:51:28 OBGyn Episode No OBEpisode recorded.
--- NOTE | 2024-08-01 03:35 | PM.OBTRLD ---
OB - Triage/Final Diagnosis Visit Information Date of evaluation: 07/31/24 Reason for evaluation: other (htn) Comments/Additional reasons for admission: I have assessed the risk for this patient, Sandra Faith, and determined that she would benefit from observation care. Evaluation Laboratory results: Laboratory Tests 07/31/24 12:13 WBC 9.8 RBC 4.42 Hgb 13.0 Hct 38.8 MCV 87.8 MCH 29.4 MCHC 33.5 RDW 13.2 Plt Count 165 MPV 12.6 H Immature Gran % (Auto) 0.6 H Neut % (Auto) 73.3 H Lymph % (Auto) 19.2 Crenshaw % (Auto) 6.2 Eos % (Auto) 0.4 Baso % (Auto) 0.3 Lymph # (Auto) 1.88 Crenshaw # (Auto) 0.6 Eos # (Auto) 0.0 Baso # (Auto) 0.0 Abs Immat Gran (auto) 0.06 H Absolute Neuts (auto) 7.2 H Absolute Nucleated RBC 0.000 Nucleated RBC % 0.0 Sodium 134 L Potassium 4.1 Chloride 107 Carbon Dioxide 20 L Anion Gap 7 BUN 9 Creatinine 0.58 L Estim Creat Clear Calc Not Reportable Estimated GFR > 60 Glucose 86 Uric Acid 4.5 Calcium 9.2 Total Bilirubin 0.3 AST 21 ALT 16 Alkaline Phosphatase 90 Total Protein 6.6 Albumin 3.4 L Urine Color Yellow Urine Appearance Clear Urine pH 6.0 Ur Specific Faison 1.009 Urine Protein Negative Urine Glucose (UA) Negative Urine Ketones Negative Ur Blood (Man) Negative Urine Nitrate Negative Urine Bilirubin Negative Urine Urobilinogen 0.2 Add Ur Microanalysis Reviewed Leukocyte Esterase Rfl 2+ H Urine RBC 0-2 Urine WBC 11-20 H Ur Squamous Epith Cells Few Urine Bacteria 2+ H Urine Casts 0-2 U Random Total Protein 13 Urine Creatinine 57.1 Protein/Creat Ratio 2 0.23 H Vital signs: Vital Signs - 24 hr 07/31/24 12:22 07/31/24 12:30 07/31/24 12:45 Pulse Rate 72 74 71 Blood Pressure 129/86 117/75 121/75 Blood Pressure [Left Arm] 07/31/24 13:00 07/31/24 13:15 07/31/24 13:16 Pulse Rate 70 70 75 Blood Pressure 124/80 129/76 Blood Pressure [Left Arm] 124/80 07/31/24 13:22 Pulse Rate 75 Blood Pressure Blood Pressure [Left Arm] 129/86
== END 2024-07-31 13:40 | disposition home or self-care (01) ==
LOC: ANHOBOP 11:44 → ANHOBPP 11:44
PROVIDERS: Visit Provider Obstetrics & Gynecology
DX: O13.9 Gestational [pregnancy-induced] hypertension without significant proteinuria, unspecified trimester (principal); Z3A.00 Weeks of gestation of pregnancy not specified
CPT/HCPCS: 36415; 59025; 80053; 81001; 82570; 84156; 84550; 85025; 87086; 99199

== ENCOUNTER 2024-08-05 09:52 | Outpatient (RCR) | payer BC, SELFPAY ==
[2024-06-12 11:55] VITALS: BP 115/64; PULSE 65
[2024-06-24 16:33] VITALS: BP 125/67; PULSE 75
[2024-07-02 16:54] VITALS: BP 122/48; PULSE 80
[2024-07-08 10:02] VITALS: BP 109/63; PULSE 75
[2024-07-21 12:12] VITALS: BP 119/75; PULSE 70
[2024-07-24 13:05] VITALS: BP 135/68
[2024-07-29 10:54] VITALS: BP 129/74; PULSE 81
[2024-08-05 10:31] VITALS: BP 107/75; PULSE 69
== END 2024-09-10 23:59 | disposition home or self-care (01) ==
LOC: ANHOBOP 09:52
PROVIDERS: Visit Provider Obstetrics & Gynecology
DX: O36.8130 Decreased fetal movements, third trimester, not applicable or unspecified (principal); Z3A.30 30 weeks gestation of pregnancy
CPT/HCPCS: 59025

== ENCOUNTER 2024-08-06 16:57 | Inpatient (IN) | payer BC, SELFPAY ==
[2024-08-06] VITALS (56 sets, daily range): BP systolic 109–146; BP diastolic 60–92; PULSE 60–88; TEMP 36.1–36.5; O2SAT 96–100; BMI 42.7
--- NOTE | 2024-08-06 17:42 | LDADM ---
This patient, Sandra Faith, was admitted to Labor/Delivery/Recovery 108 on 08/06/24 at 16:57. Plans for labor, pain management and were discussed with patient. Patient/family oriented to hospital policies and general routines including ID bracelet, bed and alarms, visiting hours, pain management, procedures, bathroom and other care routines, personal items, smoking policy, room service/diet and guest tray routines, security routines, and visiting hours. Patient/Family are encouraged to report perceived risks to care and to ask questions if they do not understand what they are told or what they should do. See OBIX for further documentation.
[2024-08-06 18:09] LABS: Basophils Percent Auto 0.3 % (0.2-1.2); Eosinophils Absolute Auto 0.1 K/mm3 (0-0.3); Eosinophils Percent Auto 0.6 % (0-4.4); Hematocrit 37.3 % (37.0-47.0); Immature Granulocyte Absolute 0.05 K/mm3 (0.00-0.031); Immature Granulocyte Percent A 0.4 % (0-0.5); Lymphocytes Absolute Auto 2.27 K/mm3 (0.9-3.2); Lymphocytes Percent Auto 20.1 % (18.3-44.2); Mean Corpuscular HGB Conc 34.9 g/dl (32-36); Mean Corpuscular Volume 86.1 fl (80-100); Mean Platelet Volume 12.2 fl (7.4-10.4); Monocytes Absolute Auto 0.6 K/mm3 (0.1-0.6); Monocytes Percent Auto 5.7 % (2.6-8.5); Neutrophils Absolute Auto 8.2 K/mm3 (1.3-6.7); Neutrophils Percent Auto 72.9 % (45.5-73.1); Platelet Count Result 169 k/mm3 (150-375); Red Blood Count 4.33 M/mm3 (4.2-5.4); Red Cell Distribution Width 13.2 % (11.5-14.5); White Blood Count 11.3 K/mm3 (4.5-10.0)
[2024-08-06 18:10] LABS: Glucose Point of Care 84 mg/dl (65-105)
[2024-08-06] MEDS: DINOPROSTONE 10 MG VAG INSERT VAGINAL (18:15)
[2024-08-06 18:24] LABS: Alanine Aminotransferase 14 U/L (6-35); Albumin Level 3.5 g/dL (3.5-5.1); Alkaline Phosphatase 92 U/L (38-126); Anion Gap 9 mmol/L (4-12); Aspartate Amino Transferase 30 U/L (14-36); Bilirubin,Total 0.2 mg/dL (0.2-1.3); Blood Urea Nitrogen 10 mg/dL (7-17); Calcium 9.5 mg/dL (8.4-10.2); Carbon Dioxide 18 mmol/L (22-30); Chloride 108 mmol/L (98-107); Estimated CRCL calculation 157 ml/min; Estimated Glomerular Filt Rate > 60; Glucose 97 mg/dL (65-110); Potassium 3.8 mmol/L (3.4-5.0); Sodium 135 mmol/L (137-145); Total Protein 6.8 g/dL (6.3-8.2); Uric Acid 5.1 mg/dL (2.5-7.5)
[2024-08-06 19:00] LABS: Syphilis IgG/IgM Antibody Non-Reactive (Nonreactive)
[2024-08-06 19:03] LABS: Hepatitis B Surface Antigen Negative (Negative)
[2024-08-06 19:12] LABS: HIV 1/2 Ab P24 Ag Result Negative (Negative)
[2024-08-06 22:06] LABS: Glucose Point of Care 84 mg/dl (65-105)
[2024-08-06] MEDS: diphenhydrAMINE HCl INJ 50 MG/ML VIAL 25 MG IV PUSH (23:17)
[2024-08-07] VITALS (280 sets, daily range): BP systolic 73–141; BP diastolic 52–100; PULSE 25–124; RESP 20; TEMP 36.2–37.3; O2SAT 76–100
[2024-08-07 02:04] LABS: Glucose Point of Care 89 mg/dl (65-105)
[2024-08-07] MEDS: LACTATED RINGERS 1,000 ML 125 ML IV CONT ×3 (05:33→16:36)
[2024-08-07] MEDS: OXYTOCIN 30 UNITS/NS 500 ML 30 UNITS/500 ML BAG IV CONT (05:33)
[2024-08-07 05:39] LABS: Glucose Point of Care 85 mg/dl (65-105)
--- NOTE | 2024-08-07 06:35 | P.HP_ITS ---
H&P: [facility] History of Present Illness Date/Time: 08/07/24 06:35 Chief Complaint: Term /gestational diabetes/history of Narrative: This is a 39-year-old 4 para 1 021 whose last menstrual period is unknown, EDC is 08/21/2024 confirmed by first-trimester ultrasound presents at 38 weeks gestation for induction of labor. She is gestational diabetic and has been diet controlled. She has a history of a demise and is admitted for controlled delivery. Review of Systems Review of Systems: As reviewed above in the HPI [facility] Family History Family History Grandparent Cancer of kidney Grandparent Diabetes mellitus Social History Social History Smoking status: Never smoker Substance use: never Do You Feel Safe in your Home?: Yes Lack of Transportation: No Lack of Food: Never True Current Housing: I Have Housing Concerned About Future Housing: No Difficulty Paying Gas/Electric Bills: No Difficulty Paying for Meds: No Currently Unemployed: No Education: Master's Degree or Higher Difficulty w/ Childcare or Family Care: No Spiritual care concerns: No Meds Home Medications and Allergies Home Medications ?Medication ?Instructions ?Recorded ?Confirmed ?Type aspirin 81 mg tablet 81 mg PO DAILY 07/08/24 08/06/24 History vit no.95-ferrous 1 tablet PO DAILY 07/08/24 08/06/24 History fumarate 28 mg-folic acid 800 mcg tablet () Allergies Allergy/AdvReac Type Severity Reaction Status Date / Time No Known Allergies Allergy Mild Verified 07/24/24 12:46 Vital Signs Vital Signs - 24 hr 08/06/24 17:17 08/06/24 17:41 08/06/24 18:02 Temperature 97.7 F Pulse Rate 85 Blood Pressure 146/92 H Pulse Oximetry Oxygen Delivery Room Air 08/06/24 18:06 08/06/24 18:31 08/06/24 18:46 Temperature Pulse Rate 77 70 66 Blood Pressure 130/83 123/79 117/71 Pulse Oximetry Oxygen Delivery 08/06/24 19:01 08/06/24 20:01 08/06/24 20:07 Temperature Pulse Rate 71 63 Blood Pressure 122/73 117/77 Pulse Oximetry 97 Oxygen Delivery 08/06/24 20:12 08/06/24 20:30 08/06/24 20:30 Temperature Pulse Rate Blood Pressure Pulse Oximetry 97 100 100 Oxygen Delivery 08/06/24 20:35 08/06/24 20:40 08/06/24 20:45 Temperature Pulse Rate Blood Pressure Pulse Oximetry 99 97 99 Oxygen Delivery 08/06/24 20:50 08/06/24 20:55 08/06/24 21:00 Temperature Pulse Rate Blood Pressure Pulse Oximetry 99 99 100 Oxygen Delivery 08/06/24 21:01 08/06/24 21:05 08/06/24 21:10 Temperature Pulse Rate 68 Blood Pressure 109/60 Pulse Oximetry 100 100 Oxygen Delivery 08/06/24 21:15 08/06/24 21:20 08/06/24 21:25 Temperature Pulse Rate Blood Pressure Pulse Oximetry 99 98 99 Oxygen Delivery 08/06/24 21:30 08/06/24 21:35 08/06/24 21:42 Temperature Pulse Rate Blood Pressure Pulse Oximetry 100 99 100 Oxygen Delivery 08/06/24 21:47 08/06/24 21:48 08/06/24 21:53 Temperature Pulse Rate Blood Pressure Pulse Oximetry 100 99 100 Oxygen Delivery 08/06/24 21:58 08/06/24 22:00 08/06/24 22:01 Temperature 97 F L Pulse Rate 66 Blood Pressure 115/74 Pulse Oximetry 99 Oxygen Delivery 08/06/24 22:03 08/06/24 22:08 08/06/24 22:13 Temperature Pulse Rate Blood Pressure Pulse Oximetry 100 98 98 Oxygen Delivery 08/06/24 22:18 08/06/24 22:22 08/06/24 22:27 Temperature Pulse Rate Blood Pressure Pulse Oximetry 98 100 100 Oxygen Delivery 08/06/24 22:32 08/06/24 22:37 08/06/24 22:42 Temperature Pulse Rate Blood Pressure Pulse Oximetry 97 98 98 Oxygen Delivery 08/06/24 22:47 08/06/24 22:52 08/06/24 22:57 Temperature Pulse Rate Blood Pressure Pulse Oximetry 98 97 96 Oxygen Delivery 08/06/24 23:02 08/06/24 23:07 08/06/24 23:08 Temperature Pulse Rate 67 Blood Pressure 113/73 Pulse Oximetry 98 97 Oxygen Delivery 08/06/24 23:14 08/06/24 23:19 08/06/24 23:24 Temperature Pulse Rate Blood Pressure Pulse Oximetry 99 98 98 Oxygen Delivery 08/06/24 23:29 08/06/24 23:34 08/06/24 23:39 Temperature Pulse Rate Blood Pressure Pulse Oximetry 98 98 97 Oxygen Delivery 08/06/24 23:44 08/06/24 23:49 08/06/24 23:54 Temperature Pulse Rate Blood Pressure Pulse Oximetry 98 98 98 Oxygen Delivery 08/06/24 23:59 08/07/24 00:04 08/07/24 00:05 Temperature Pulse Rate 67 Blood Pressure 116/69 Pulse Oximetry 99 98 Oxygen Delivery 08/07/24 00:09 08/07/24 00:14 08/07/24 00:20 Temperature Pulse Rate Blood Pressure Pulse Oximetry 97 98 90 Oxygen Delivery 08/07/24 00:25 08/07/24 00:30 08/07/24 00:35 Temperature Pulse Rate Blood Pressure Pulse Oximetry 100 99 99 Oxygen Delivery 08/07/24 00:40 08/07/24 00:45 08/07/24 00:50 Temperature Pulse Rate Blood Pressure Pulse Oximetry 98 97 98 Oxygen Delivery 08/07/24 00:55 08/07/24 01:02 08/07/24 01:07 Temperature Pulse Rate Blood Pressure Pulse Oximetry 98 99 99 Oxygen Delivery 08/07/24 01:12 08/07/24 01:17 08/07/24 01:22 Temperature Pulse Rate Blood Pressure Pulse Oximetry 97 98 97 Oxygen Delivery 08/07/24 01:27 08/07/24 01:32 08/07/24 01:37 Temperature Pulse Rate Blood Pressure Pulse Oximetry 96 97 97 Oxygen Delivery 08/07/24 01:42 08/07/24 01:47 08/07/24 01:52 Temperature Pulse Rate Blood Pressure Pulse Oximetry 97 97 95 Oxygen Delivery 08/07/24 01:57 08/07/24 02:01 08/07/24 02:02 Temperature Pulse Rate 67 Blood Pressure 112/72 Pulse Oximetry 97 97 Oxygen Delivery 08/07/24 02:07 08/07/24 02:12 08/07/24 02:17 Temperature Pulse Rate Blood Pressure Pulse Oximetry 96 97 96 Oxygen Delivery 08/07/24 02:22 08/07/24 02:27 08/07/24 02:32 Temperature Pulse Rate Blood Pressure Pulse Oximetry 95 98 97 Oxygen Delivery 08/07/24 02:37 08/07/24 02:42 08/07/24 02:47 Temperature Pulse Rate Blood Pressure Pulse Oximetry 96 96 97 Oxygen Delivery 08/07/24 02:52 08/07/24 02:57 08/07/24 03:02 Temperature Pulse Rate Blood Pressure Pulse Oximetry 96 97 97 Oxygen Delivery 08/07/24 03:07 08/07/24 03:12 08/07/24 03:17 Temperature Pulse Rate Blood Pressure Pulse Oximetry 98 98 98 Oxygen Delivery 08/07/24 03:22 08/07/24 03:27 08/07/24 03:32 Temperature Pulse Rate Blood Pressure Pulse Oximetry 97 97 97 Oxygen Delivery 08/07/24 03:37 08/07/24 03:42 08/07/24 03:47 Temperature Pulse Rate Blood Pressure Pulse Oximetry 97 97 97 Oxygen Delivery 08/07/24 03:52 08/07/24 03:57 08/07/24 04:00 Temperature 97.5 F L Pulse Rate Blood Pressure Pulse Oximetry 98 96 Oxygen Delivery 08/07/24 04:02 08/07/24 04:09 08/07/24 04:14 Temperature Pulse Rate Blood Pressure Pulse Oximetry 98 99 98 Oxygen Delivery 08/07/24 04:19 08/07/24 04:24 08/07/24 04:29 Temperature Pulse Rate Blood Pressure Pulse Oximetry 98 98 95 Oxygen Delivery 08/07/24 04:34 08/07/24 04:39 08/07/24 04:44 Temperature Pulse Rate Blood Pressure Pulse Oximetry 96 96 97 Oxygen Delivery 08/07/24 04:49 08/07/24 04:54 08/07/24 04:59 Temperature Pulse Rate Blood Pressure Pulse Oximetry 97 97 100 Oxygen Delivery 08/07/24 05:04 08/07/24 05:09 08/07/24 05:14 Temperature Pulse Rate Blood Pressure Pulse Oximetry 100 97 97 Oxygen Delivery 08/07/24 05:19 08/07/24 05:25 08/07/24 05:28 Temperature Pulse Rate Blood Pressure Pulse Oximetry 98 100 99 Oxygen Delivery 08/07/24 05:33 08/07/24 05:38 08/07/24 05:43 Temperature Pulse Rate Blood Pressure Pulse Oximetry 97 96 97 Oxygen Delivery 08/07/24 05:48 08/07/24 05:53 08/07/24 05:58 Temperature Pulse Rate Blood Pressure Pulse Oximetry 97 97 97 Oxygen Delivery 08/07/24 06:01 08/07/24 06:03 08/07/24 06:12 Temperature Pulse Rate 65 Blood Pressure 99/60 L Pulse Oximetry 97 99 Oxygen Delivery 08/07/24 06:17 08/07/24 06:22 08/07/24 06:27 Temperature Pulse Rate Blood Pressure Pulse Oximetry 99 99 99 Oxygen Delivery 08/07/24 06:31 08/07/24 06:32 Temperature Pulse Rate 68 Blood Pressure 125/84 Pulse Oximetry 97 Oxygen Delivery Exam Const: General: cooperative, healthy appearing and comfortable Nutritional Appearance: overweight Orientation/consciousness: oriented to person, orien maryanne to place and oriented to time HENMT: Head: normal to inspection Resp: Effort & Inspection: normal respiratory effort Cardio: Rate: regular rate Rhythm: regular rhythm Heart sounds: S1 normal heart sound present and S2 normal heart sound present GI: Inspection: normal to inspection (Gravid soft uterus) : External Female Exam: normal external appearance Speculum Exam - Vagina: normal appearance of the vagina Speculum Exam - Cervix: normal appearance of the cervix (Cervix 2/50/2. AROM clear. FHTs reassuring) H&P: Results Labs Labs: Short CBC 08/06/24 Range/Units 17:06 WBC 11.3 H (4.5-10.0) K/mm3 Hgb 13.0 (12.0-15.0) g/dL Hct 37.3 (37.0-47.0) % Plt Count 169 (150-375) k/mm3 BMP 08/06/24 17:09 Sodium 135 L Potassium 3.8 Chloride 108 H Carbon Dioxide 18 L BUN 10 Creatinine 0.56 L Glucose 97 Calcium 9.5 Liver Function 08/06/24 Range/Units 17:09 Total Bilirubin 0.2 (0.2-1.3) mg/dL AST 30 (14-36) U/L ALT 14 (6-35) U/L Alkaline Phosphatase 92 (38-126) U/L Albumin 3.5 (3.5-5.1) g/dL Assessment and Plan Assessment and plan (1) Prior with demise and current in second trimester: Code(s): O09.292 - Supervision of with other poor reproductive or obstetric history, second trimester Status: Acute (2) Term : Code(s): Z34.90 - Encounter for supervision of normal , unspecified, unspecified trimester Status: Acute (3) Gestational diabetes: Code(s): O24.419 - Gestational diabetes mellitus in , unspecified control Status: Acute Plan Proceed with medical induction of labor. Spontaneous vaginal delivery is expected. Will follow sugars. She is an epidural candidate
[2024-08-07 08:39] LABS: Glucose Point of Care 94 mg/dl (65-105)
--- NOTE | 2024-08-07 12:29 | PM.OBPNLAB ---
Pain Control Date/time seen: 08/07/24 12:29 Pain control: tolerating well and epidural Pelvic Exam Dilation (cm): 3 Effacement (%): 75 station: -2 Amniotic membrane status: Leaking Comments: iupc in
[2024-08-07 13:13] LABS: Glucose Point of Care 93 mg/dl (65-105)
--- NOTE | 2024-08-07 15:02 | WPDANESEPPF ---
Anes - Initial Pre Proc Eval Date/Time: 08/07/24 15:02 Surgeon: Pavel Quevedo MD Pre Op Diagnosis: IOL Patient Data Age: 39 Gender: F Height: 1.7 m Weight: 124 kg Last Vital Signs Temp 36.8 C 08/07/24 14:00 Pulse 67 08/07/24 15:01 Resp 20 08/07/24 08:03 BP 122/77 08/07/24 15:01 Pulse Ox 99 08/07/24 15:01 O2 Del Method Room Air 08/06/24 17:41 Allergies Allergy/AdvReac Type Severity Reaction Status Date / Time No Known Allergies Allergy Mild Verified 07/24/24 12:46 Home Medications ?Medication ?Instructions ?Recorded ?Confirmed ?Type aspirin 81 mg tablet 81 mg PO DAILY 07/08/24 08/06/24 History vit no.95-ferrous 1 tablet PO DAILY 07/08/24 08/06/24 History fumarate 28 mg-folic acid 800 mcg tablet () Laboratory Tests 08/06/24 08/06/24 08/06/24 17:06 17:09 18:01 WBC 11.3 H K/mm3 (4.5-10.0) RBC 4.33 M/mm3 (4.2-5.4) Hgb 13.0 g/dL (12.0-15.0) Hct 37.3 % (37.0-47.0) MCV 86.1 fl (80-100) MCH 30.0 pg (26-34) MCHC 34.9 g/dl (32-36) RDW 13.2 % (11.5-14.5) Plt Count 169 k/mm3 (150-375) MPV 12.2 H fl (7.4-10.4) Immature Gran % (Auto) 0.4 % (0-0.5) Neut % (Auto) 72.9 % (45.5-73.1) Lymph % (Auto) 20.1 % (18.3-44.2) [place] % (Auto) 5.7 % (2.6-8.5) Eos % (Auto) 0.6 % (0-4.4) Baso % (Auto) 0.3 % (0.2-1.2) Lymph # (Auto) 2.27 K/mm3 (0.9-3.2) [place] # (Auto) 0.6 K/mm3 (0.1-0.6) Eos # (Auto) 0.1 K/mm3 (0-0.3) Baso # (Auto) 0.0 K/mm3 (0.0-0.1) Abs Immat Gran (auto) 0.05 H K/mm3 (0.00-0.031) Absolute Neuts (auto) 8.2 H K/mm3 (1.3-6.7) Absolute Nucleated RBC 0.000 K/mm3 (0.0-0.012) Nucleated RBC % 0.0 % (0.0-0.2) Sodium 135 L mmol/L (137-145) Potassium 3.8 mmol/L (3.4-5.0) Chloride 108 H mmol/L (98-107) Carbon Dioxide 18 L mmol/L (22-30) Anion Gap 9 mmol/L (4-12) BUN 10 mg/dL (7-17) Creatinine 0.56 L mg/dL (0.7-1.0) Estim Creat Clear Calc 157 ml/min Estimated GFR > 60 (59 - ) Glucose 97 mg/dL (65-110) POC Capillary Glucose Uric Acid 5.1 mg/dL (2.5-7.5) Calcium 9.5 mg/dL (8.4-10.2) Total Bilirubin 0.2 mg/dL (0.2-1.3) AST 30 U/L (14-36) ALT 14 U/L (6-35) Alkaline Phosphatase 92 U/L (38-126) Total Protein 6.8 g/dL (6.3-8.2) Albumin 3.5 g/dL (3.5-5.1) Syphilis IgG/IgM Ab Non-reactive (Nonreactive) Hep Bs Antigen Negative (Negative) HIV 1&2 Ab/P24 Ag 4thGn Negative (Negative) Blood Type A Positive Antibody Screen Negative 08/06/24 08/06/24 08/07/24 18:07 22:02 02:00 WBC RBC Hgb Hct MCV MCH MCHC RDW Plt Count MPV Immature Gran % (Auto) Neut % (Auto) Lymph % (Auto) [place] % (Auto) Eos % (Auto) Baso % (Auto) Lymph # (Auto) [place] # (Auto) Eos # (Auto) Baso # (Auto) Abs Immat Gran (auto) Absolute Neuts (auto) Absolute Nucleated RBC Nucleated RBC % Sodium Potassium Chloride Carbon Dioxide Anion Gap BUN Creatinine Estim Creat Clear Calc Estimated GFR Glucose POC Capillary Glucose 84 mg/dl 84 mg/dl 89 mg/dl (65-105) (65-105) (65-105) Uric Acid Calcium Total Bilirubin AST ALT Alkaline Phosphatase Total Protein Albumin Syphilis IgG/IgM Ab Hep Bs Antigen HIV 1&2 Ab/P24 Ag 4thGn Blood Type Antibody Screen 08/07/24 08/07/24 08/07/24 05:35 08:36 13:09 WBC RBC Hgb Hct MCV MCH MCHC RDW Plt Count MPV Immature Gran % (Auto) Neut % (Auto) Lymph % (Auto) [place] % (Auto) Eos % (Auto) Baso % (Auto) Lymph # (Auto) [place] # (Auto) Eos # (Auto) Baso # (Auto) Abs Immat Gran (auto) Absolute Neuts (auto) Absolute Nucleated RBC Nucleated RBC % Sodium Potassium Chloride Carbon Dioxide Anion Gap BUN Creatinine Estim Creat Clear Calc Estimated GFR Glucose POC Capillary Glucose 85 mg/dl 94 mg/dl 93 mg/dl (65-105) (65-105) (65-105) Uric Acid Calcium Total Bilirubin AST ALT Alkaline Phosphatase Total Protein Albumin Syphilis IgG/IgM Ab Hep Bs Antigen HIV 1&2 Ab/P24 Ag 4thGn Blood Type Antibody Screen Patient hx anesthesia problems: none Family hx anesthesia problems: none Results Review: All pre-operative results and documents have been reviewed as part of the pre-operative evaluation. [facility] Family History Family History Grandparent Cancer of kidney Grandparent Diabetes mellitus Social History Social History Smoking status: Never smoker Substance use: never Do You Feel Safe in your Home?: Yes Lack of Transportation: No Lack of Food: Never True Current Housing: I Have Housing Concerned About Future Housing: No Difficulty Paying Gas/Electric Bills: No Difficulty Paying for Meds: No Currently Unemployed: No Education: Master's Degree or Higher Difficulty w/ Childcare or Family Care: No Spiritual care concerns: No Anes - Eval Final PreProcedure Day of Procedure 08/07/24 15:02 Patient weight: morbidly obese Heart: regular rate and rhythm Lungs: clear to auscultation Neurological: alert and oriented ASA classification: III Emergent: no Anesthetic plan: proceed Anesthesia type and monitoring: regional epidural and standard monitoring Results Review: All pre-operative results and documents have been reviewed as part of the pre-operative evaluation. Informed Consent: The patient's anesthetic plan and its attendant risks and benefits were discussed with the patient/family/POA. Questions were solicited and answers provided to the satisfaction of the patient/family/POA.
--- NOTE | 2024-08-07 16:29 | PM.OBPNLAB ---
Pain Control Date/time seen: 08/07/24 16:29 Pain control: tolerating well and epidural Pelvic Exam Dilation (cm): 5 Effacement (%): 75 station: -2 Amniotic membrane status: Leaking
[2024-08-07] MEDS: SODIUM CHLORIDE 0.9% IV 300 ML 600 ML I-UTERINE (16:36)
[2024-08-07 17:17] LABS: Glucose Point of Care 70 mg/dl (65-105)
[2024-08-07 18:08] LABS: Glucose Point of Care 83 mg/dl (65-105)
--- NOTE | 2024-08-07 19:34 | PM.OBPRVD ---
OB - Vaginal Delivery Note Procedure Delivery date: 08/07/24 Events: Gestational Diabetes and Gestational Hypertension Induction method: Per Cervidil Protocol Delivery augmentation: Rupture of Membranes and Pitocin Delivery monitor: External FHT and Internal Uterine Route of delivery: Episiotomy description: None Laceration Description: None Specimen: No Quantitative Blood Loss (ml): 62 Anesthesia type: Epidural Disposition: Floor Narrative: Patient was admitted for induction labor on the evening of 08/06/2024 she received Cervidil the a.m. rupture member performed intrauterine pressure catheter placed she received an unremarkable 1st stage of labor to completely dilated when complete she pushed delivered head spontaneously in the LOURDES position nuchal cord checked noted be loose x2 remarkable occiput anterior posterior shoulder delivered spontaneously. Cord clamped and cut passed of the table given after a minute and 9 [id number]. Cord blood was drawn. Placenta delivered intact spontaneously 20 of Pitocin placed in the IV to help firm the uterus a and true knot was seen. The perineum was intact blood loss estimated 62cc picked. All sponge, needle, instrument counts were correct. There were no immediate complications Baby Date of : 08/07/24 Time of : 19:23 Gestational Age by Date: 39 Infant gender: Male presentation: vertex position: Right Occiput Anterior Placenta delivery description: Spontaneous Cord Vessel Description: 3 Vessels, Nuchal Cord (x 2), Loose and Delayed Cord Clamping score one minute: 9 score five minutes: 9
--- NOTE | 2024-08-07 19:37 | PM.DS ---
DS: Admitting Diagnosis Discharge Date 08/09/2024 Admitting Diagnosis Term /gestational diabetes/gestational hypertension DS: Discharge Diagnosis Discharge Diagnosis (1) Prior with demise and current in second trimester: Code(s): O09.292 - Supervision of with other poor reproductive or obstetric history, second trimester Status: Acute (2) Term : Code(s): Z34.90 - Encounter for supervision of normal , unspecified, unspecified trimester Status: Acute (3) Gestational diabetes: Code(s): O24.419 - Gestational diabetes mellitus in , unspecified control Status: Acute (4) Gestational hypertension: Code(s): O13.9 - Gestational [-induced] hypertension without significant proteinuria, unspecified trimester Status: Acute DS: Summary Hospital Course Reason for hospitalization: Patient was admitted for induction of labor on 08/06/2024. She she underwent spontaneous vaginal delivery on 08/07/2024. Hospital Course: Patient's hospital course unremarkable. She remained afebrile. Blood pressures remained stable and her sugars were good she was up, voiding without difficulty, eating regular diet, ambulating, and generally without complaints Time Spent with Patient Time attestation: Total time spent providing and/or coordinating discharge services: Exam Const: General: cooperative, healthy appearing and comfortable Nutritional Appearance: overweight Orientation/consciousness: oriented to person, oriented to place and oriented to time HENMT: Head: normal to inspection Resp: Effort & Inspection: normal respiratory effort Cardio: Rate: regular rate Rhythm: regular rhythm Heart sounds: S1 normal heart sound present and S2 normal heart sound present GI: Inspection: normal to inspection (Gravid soft uterus) : External Female Exam: normal external appearance Speculum Exam - Vagina: normal appearance of the vagina Speculum Exam - Cervix: normal appearance of the cervix (Cervix 2/50/2. AROM clear. FHTs reassuring) DS: Data Data Completed and Pending Labs on day of discharge: Labs from last 24 hours 08/07/24 08/07/24 08/07/24 18:05 17:04 13:09 POC Capillary Glucose 83 70 93 08/07/24 08/07/24 08/07/24 08:36 05:35 02:00 POC Capillary Glucose 94 85 89 08/06/24 22:02 POC Capillary Glucose 84 Discharge Plan Discharge Attending physician on discharge: Pavel Weeks Discharging Clinician: Pavel Weeks Patient Disposition: Home Activity: may shower, no straining and pelvic rest Diet: heart healthy Wound Care Instructions: follow printed instructions Patient Instructions: Antibiotic Form Patient Language: Divehi Stand Alone Forms: General Discharge Information Follow-up/Referrals: Pavel Weeks MD [Physician] - Discharge Medications: Continued PNV cmb#95-ferrous fumarate-FA [] 28 mg iron- 800 mcg tablet 1 tablet PO DAILY aspirin 81 mg tablet 81 mg PO DAILY Date of admission: 08/06/24 16:57 Primary Care Provider: PHYSICIAN,AGRICULTURAL PURCHASING AGENT Admitting Provider: Pavel Weeks Attending physician on admission: Pavel Weeks Condition: Stable
[2024-08-07] MEDS: OXYTOCIN 30 UNITS/NS 500 ML 30 UNITS/500 ML BAG 125 UNITS IV CONT (19:55)
[2024-08-07 20:12] LABS: Glucose Point of Care 101 mg/dl (65-105)
[2024-08-07] MEDS: WITCH HAZEL 40 PADS 1 PAD TOPICAL (21:55)
[2024-08-07] MEDS: BENZOCAINE 20% AER SPR (*SP) 56 GM CAN 1 SPRAY TOPICAL (21:55)
[2024-08-08] MEDS: IBUPROFEN 600 MG TABLET PO ×4 (00:10→20:26)
[2024-08-08 04:49] VITALS: BP 106/57; PULSE 62; RESP 20; TEMP 36.7; O2SAT 97
[2024-08-08 05:36] LABS: Hematocrit 34.8 % (37.0-47.0); Hemoglobin 11.7 g/dL (12.0-15.0)
[2024-08-08] MEDS: MULTIVIT/MIN/PREN/FOL AC/IRON TABLET 1 TAB PO (06:40)
[2024-08-08] MEDS: DOCUSATE SODIUM 100 MG CAPSULE PO ×2 (06:57→16:50)
--- NOTE | 2024-08-08 06:57 | P.PNOB_ITS ---
OB - PN: Subj Subjective Date/time seen: 08/08/24 06:57 Patient comments: no complaints, pain well controlled and tolerating diet baby status: doing well OB - PN: Obj Data Labs 08/08/24 04:26 08/06/24 17:09 Labs: Laboratory Results - last 24 hr 08/07/24 08/07/24 08/07/24 08:36 13:09 17:04 Hgb Hct POC Capillary Glucose 94 93 70 08/07/24 08/07/24 08/08/24 18:05 20:01 04:26 Hgb 11.7 L Hct 34.8 L POC Capillary Glucose 83 101 OB - PN A/P Assessment and Plan (1) Gestational diabetes: Code(s): O24.419 - Gestational diabetes mellitus in , unspecified control Status: Acute (2) Gestational hypertension: Code(s): O13.9 - Gestational [-induced] hypertension without significant proteinuria, unspecified trimester Status: Acute (3) Term : Code(s): Z34.90 - Encounter for supervision of normal , unspecified, unspecified trimester Status: Acute (4) Prior with demise and current in second trimester: Code(s): O09.292 - Supervision of with other poor reproductive or obstetric history, second trimester Status: Acute Plan routine care Time Spent With Patient Time: Total time spent is greater than 50% in coordination of care (as documented) at patient's floor/unit and/or counseling patient: Review of Systems 2 Review of Systems: As reviewed above in the HPI Exam 2 Const: General: cooperative, healthy appearing and comfortable Nutritional Appearance: overweight Orientation/consciousness: oriented to person, oriented to place and oriented to time HENMT: Head: normal to inspection Resp: Effort & Inspection: normal respiratory effort Cardio: Rate: regular rate Rhythm: regular rhythm Heart sounds: S1 normal heart sound present and S2 normal heart sound present GI: Inspection: normal to inspection (Gravid soft uterus) : External Female Exam: normal external appearance Speculum Exam - Vagina: normal appearance of the vagina Speculum Exam - Cervix: normal appearance of the cervix (Cervix 2/50/2. AROM clear. FHTs reassuring)
[2024-08-08 07:20] VITALS: BP 130/78; PULSE 67; RESP 16; TEMP 37.1; O2SAT 98
--- NOTE | 2024-08-08 07:30 | PC.NURSE ---
Introductions were made and consulted with patient to assess needs related to . Mother is currently pumping using a hospital provided pump. Education was provided by night RN and reiterated by this RN. Mother encouraged to call this RN for assistance with putting to breast for next feeding. Primary RN updated.
[2024-08-08] MEDS: ACETAMINOPHEN 325 MG TABLET 650 MG PO (10:55)
[2024-08-08 11:58] VITALS: BP 131/76; PULSE 75; RESP 16; TEMP 37.2; O2SAT 98
--- NOTE | 2024-08-08 13:40 | PC.NURSE ---
Called to bedside to assist with latching . Upon entering room, swaddled and in mothers arms. Demonstrated unwrapping and stimulating with talking to infant and changing infant diaper. Once infant was awake he began rooting and was placed in mothers arms in football position. Mother was able to latch infant independently in the football position. This RN observed feeding for approx. 4 minutes at bedside. Education given to the mother of how to visualize the suckling (with good rocking jaw motion), swallows (dropping of the lower jaw) and how to listen for drinking at the breast (the ka sound). Infant was [able] to maintain latch without pain to mother protecting the nipple with optimal positioning and latching. Reviewed comfort measures of healing with a warm, wet washcloth to rinse breast, then leave open to air-dry, good handwashing when or touching the breast/nipples to prevent infection. Mother voiced understanding of skin to skin, stimulating with massage touch, responsive feedings, hand expressed colostrum, talking to to encourage if it has been 2 -2.5 hours since the start of the last , to call if does not latch, or if there is discomfort with . Parents voiced understanding of information, demonstrated learning and will call if there is a request for assistance. Reported to the Primary RN.
--- NOTE | 2024-08-08 14:13 | WPDANLDPN2 ---
Anes-Prog Note L&D Date/Time: 08/08/24 14:13 Comfortable throughout: labor (one sided ) and delivery Neuraxial method: epidural Epidural/Spinal procedure site: clean & non-tender Neuro status: Neuro function grossly intact. Cardiovascular status: normal Respiratory status: normal Airway patency: baseline Mental status: baseline Post-Op hydration status: normal Vital Signs: Last Vital Signs Temp 98.9 F 08/08/24 11:58 Pulse 75 08/08/24 11:58 Resp 16 08/08/24 11:58 BP 131/76 08/08/24 11:58 Pulse Ox 98 08/08/24 11:58 O2 Del Method Room Air 08/08/24 06:50 Pain score (VAS): 0/10 I/O: Intake & Output 08/07/24 08/08/24 08/08/24 23:59 07:59 15:59 Intake Total 1850 0 Output Total 75 2250 1200 Balance 1775 -2250 -1200 Post-procedural complaints: none Patient feedback: Patient satisfied with anesthetic care.
[2024-08-08 16:10] VITALS: BP 123/68; PULSE 67; RESP 16; TEMP 36.6; O2SAT 98
[2024-08-08 18:45] VITALS: BP 134/71; PULSE 63; RESP 18; TEMP 36.7; O2SAT 99
[2024-08-08 23:00] VITALS: BP 134/81
[2024-08-09] MEDS: ACETAMINOPHEN 325 MG TABLET 650 MG PO (00:30)
[2024-08-09 04:17] VITALS: BP 126/80
[2024-08-09] MEDS: IBUPROFEN 600 MG TABLET PO ×2 (05:37→12:41)
--- NOTE | 2024-08-09 06:12 | P.PNOB_ITS ---
OB - PN: Subj Subjective Date/time seen: 08/09/24 06:12 Patient comments: no complaints, pain well controlled and tolerating diet [place] baby status: doing well OB - PN: Obj Data Labs 08/08/24 04:26 08/06/24 17:09 OB - PN A/P Assessment and Plan (1) Term : Code(s): Z34.90 - Encounter for supervision of normal , unspecified, unspecified trimester Status: Acute (2) Gestational diabetes: Code(s): O24.419 - Gestational diabetes mellitus in , unspecified control Status: Acute (3) Gestational hypertension: Code(s): O13.9 - Gestational [-induced] hypertension without significant proteinuria, unspecified trimester Status: Acute Time Spent With Patient Time: Total time spent is greater than 50% in coordination of care (as documented) at patient's floor/unit and/or counseling patient: Review of Systems 2 Review of Systems: As reviewed above in the HPI Exam 2 Const: General: cooperative, healthy appearing and comfortable Nutritional Appearance: overweight Orientation/consciousness: oriented to person, oriented to place and oriented to time HENMT: Head: normal to inspection Resp: Effort & Inspection: normal respiratory effort Cardio: Rate: regular rate Rhythm: regular rhythm Heart sounds: S1 normal heart sound present and S2 normal heart sound present GI: Inspection: normal to inspection (Gravid soft uterus) : External Female Exam: normal external appearance Speculum Exam - Vagina: normal appearance of the vagina Speculum Exam - Cervix: normal appearance of the cervix (Cervix 2/50/2. AROM clear. FHTs reassuring)
[2024-08-09 06:50] VITALS: BP 120/82; PULSE 70; RESP 16; TEMP 36.3; O2SAT 99
[2024-08-09] MEDS: MULTIVIT/MIN/PREN/FOL AC/IRON TABLET 1 TAB PO (08:17)
[2024-08-09] MEDS: DOCUSATE SODIUM 100 MG CAPSULE PO (08:17)
--- NOTE | 2024-08-09 09:48 | PC.NURSE ---
Introductions were made, then consulted with patient to assess needs related to . Discussed with mother her?plans to feed?her infant and the?experience so far. Per mother, baby had breastfed well yesterday but overnight she had some difficulty latching, she was able to pump but is not getting any colostrum at this time and baby received a few formula bottles. Mother had been using size 24 flange with the hospital pump but recently switched to the size 21, it felt more comfortable. [facility] RN offered to do a nipple measurement but mother declined. Per mother with her first baby she had a hemorrhage and worked with an outside consult but was not able to produce breast milk. Encouraged mother to call out for assistance with feeds and to continue to use her breast pump if baby does not effectively feed at the breast to protect and try to build her milk supply. Mother is feeding appropriately for growth of infant and understands stimulating infant to eat if needed. Infant has had appropriate feedings in the last 24 hours meets the outcomes for weight, output, blood sugar and jaundice at this time. Reinforced understanding of milk production, transition of milk, signs of adequate intake, transition of stool, prevention/relief of engorgement, plugged ducts, mastitis, responsive watching for feeding cues, the different methods of stimulating infant to breastfeed 1-3 hours after the start of the last feeding, community resources, and when to call a provider using the resource of the feeding sheet along with the mom and baby guide. Mother voiced understanding of the information shared, is confident to continue effectively feeding her infant at home, when to call for assistance, denies any additional assistance or education at this time. Reported to the Primary RN.
[2024-08-10 09:23] VITALS: BP 123/73; PULSE 63; RESP 18; TEMP 36.5; O2SAT 99
== END 2024-08-09 17:56 | disposition home or self-care (01) | DRG 807 ==
LOC: ANHLDR 08-07 19:40 → ANHOB2 08-07 22:19
PROVIDERS: Admitting Provider Obstetrics & Gynecology; Visit Provider Obstetrics & Gynecology
DX: O24.420 Gestational diabetes mellitus in childbirth, diet controlled (principal); Z37.0 Single live birth; Z3A.38 38 weeks gestation of pregnancy; O13.4 Gestational [pregnancy-induced] hypertension without significant proteinuria, complicating childbirth; O69.81X0 Labor and delivery complicated by cord around neck, without compression, not applicable or unspecified; O99.892 Other specified diseases and conditions complicating childbirth; Z87.59 Personal history of other complications of pregnancy, childbirth and the puerperium
CPT/HCPCS: 36415; 80053; 82948; 84550; 85014; 85018; 85025; 86593; 86703; 86850; 86900; 86901; 87340; A9270; G0432; J1200; J2590; J2795; J7030; J7120